=== PATIENT | female | born 1995 | race Caucasian/White ===

== ENCOUNTER → 2018-11-29 | Outpatient (CLI) | payer BC, SELFPAY ==
[2018-11-29 20:24] VITALS: BMI 20.6
[2018-12-03 12:16] LABS: HPV Reflexed? NOT INDICATED
== END | disposition home or self-care (01) ==
PROVIDERS: Visit Provider Nurse Practitioner
DX: Z00.00 Encounter for general adult medical examination without abnormal findings (principal)
CPT/HCPCS: 88175; G0145

== ENCOUNTER → 2025-01-06 | Outpatient (CLI) | payer BC, SELFPAY ==
[2025-01-09 23:07] LABS: Chlamydia By Nucleic Acid AMP Negative (Negative); Gonococcus By Nucleic Acid AMP Negative (Negative)
== END | disposition home or self-care (01) ==
LOC: LABSPEC 14:28
PROVIDERS: Visit Provider Advanced Practice Midwife
DX: Z34.90 Encounter for supervision of normal pregnancy, unspecified, unspecified trimester (principal); Z12.4 Encounter for screening for malignant neoplasm of cervix
CPT/HCPCS: 87086; 87088; 87491; 87591; 87624; 88175; G0145

== ENCOUNTER → 2025-01-16 | Outpatient (CLI) | payer BC, SELFPAY ==
[2025-01-16 16:40] LABS: Hematocrit 37.6 % (37-47); Hemoglobin 12.6 g/dL (12.0-15.0); Immature Granulocytes Count 0.030 X10^3/uL (0.0-0.0); Mean Corp Hgb Conc 33.5 g/dL (32-36); Mean Corpuscular Volume 89.3 fL (81-99); Mean Platelet Vol. 10.1 fl (6.2-12.0); NRBC Flagged by Analyzer 0 % (0-5); Platelet Count 250 K/mm3 (150-450); RBC Distribution Width CV 12.9 % (11.6-14.6); RBC Distribution Width SD 42.3 fl (35.1-43.9); Red Blood Count 4.21 M/mm3 (4.2-5.4); White Blood Count 6.6 K/mm3 (4.4-11.0)
[2025-01-16 17:35] LABS: HIV Nonreactive (Nonreactive); Hepatitis B Surface Antigen Nonreactive (Nonreactive); Hepatitis C Antibody Nonreactive (Nonreactive); Syphilis Antibodies Nonreactive (Nonreactive)
--- OUTSIDE RECORDS SUMMARY | 2025-01-16 21:24 | XMS RPT_ITS | CCD ---
Author Organization [facility] ion Partnership [facility] Care Team Providers Care Alodize Machine Helper Name Role Phone Unavailable Primary Care Provider Patria Kumar Attending Provider [phone] Aileen Jacinto CNM Attending Provider Aileen Jacinto Attending Unavailable Patria Dooley Attending Unavailable Aileen Jacinto Attending Unavailable Allergies Allergy Classification Reported Allergen(s) Allergy Type Date of Onset Reaction(s) Facility (2 sources) shrimp allergenic extract Drug Allergy 01-06-2025 [facility] [place] [facility] (1 source) Shrimp product Drug allergy (disorder) 01-06-2025 [facility] Repository Medications Current Medications Medication Drug Class(es) Dates Sig (Normalized) Sig (Original) acetaminophen 325 mg oral tablet (2 sources) Start: 10-02-2020 acetaminophen (TYLENOL) tablet 650 mg benzocaine 200 mg/ml / menthol 5 mg/ml topical spray (1 source) Standardized Chemical Allergen Start: 10-03-2020 benzocaine-menthol (DERMOPLAST) 20-0.5 % spray calcium chloride 0.0014 meq/ml / potassium chloride 0.004 meq/ml / sodium chloride 0.103 meq/ml / sodium lactate 0.028 meq/ml injectable solution (2 sources) Start: 10-02-2020 End: 10-03-2020 lactated ringers infusion doxylamine succinate 25 mg oral tablet (1 source) Start: 03-15-2020 take 1 tablet by mouth once daily doxyLAMINE succinate (UNISOM SLEEPTABS) 25 MG tablet Indications: Nausea and vomiting of , antepartum Take 1 tablet by mouth nightly 30 tablet 1 03/15/2020 Active ferrous sulfate 325 mg oral tablet (3 sources) Start: 10-05-2020 End: 10-05-2020 take 1 tablet by mouth twice daily at mealtime ferrous sulfate (IRON 325) 325 (65 Fe) MG tablet Take 1 tablet by mouth 2 times daily (with meals) 60 tablet 1 10/05/2020 Active Start: 10-05-2020 ferrous sulfat e (IRON 325) tablet 325 mg lansinoh lanolin ointment (1 source) Start: 10-03-2020 lansinoh lanol in ointment 2 ml ondansetron 2 mg/ml injection (2 sources) Serotonin-3 Receptor Antagonist Start: 10-02-2020 End: 10-03-2020 ondansetron (ZOFRAN) injection 4 mg Fclbrj40-Vpqk Fum-Folic Ac-Om3 (One A Day Women's Dha) 28 mg iron- 800 mcg combo pack (3 sources) Start: 12-13-2024 Nmwbbu94-Sloh Fum-Folic Ac-Om3 (One A Day Women's Dha) 28 mg iron- 800 mcg combo pack Active NMA PO December 13, 2024 12:00am Vit-Fe Fumarate-FA ( VITAMIN) 27-0.8 MG TABS (4 sources) Start: 02-03-2020 take 1 tablet by mouth once daily Vit-Fe Fumarate-FA ( VITAMIN) 27-0.8 MG TABS Take 1 tablet by mouth daily 90 tablet 4 02/03/2020 Active pyridoxine hydrochloride 25 mg oral tablet (1 source) Start: 03-15-2020 take 1 tablet by mouth three times daily vitamin B-6 (PYRIDOXINE) 25 MG tablet Indications: Nausea and vomiting of , antepartum Take 1 tablet by mouth 3 times daily 90 tablet 3 03/15/2020 Active ropivacaine 0.2% in sodium chloride 0.9% 200mL (OB) epidural (1 source) Start: 10-03-2020 ropivacaine 0. 2% in sodium chloride 0.9% 200mL (OB) epidural simethicone 80 mg chewable tablet (1 source) Start: 10-03-2020 simethicone (MYLICON) chewable tablet 80 mg witch anthony 500 mg/ml medicated pad (1 source) Start: 10-03-2020 witch anthony-glycerin (TUCKS) pad Completed/Discontinued Medications Medication Drug Class(es) Dates Sig (Normalized) Sig (Original) docusate sodium 100 mg oral capsule (3 sources) Start: 10-03-2020 End: 10-05-2020 take 1 capsule by mouth twice daily as needed for constipation docusate sodium (COLACE, DULCOLAX) 100 MG CAPS Take 100 mg by mouth 2 times daily as needed for Constipation 60 capsule 1 10/05/2020 10/05/2020 Discontinued ibuprofen 600 mg oral tablet (4 sources) Nonsteroidal Anti-inflammatory Drug Start: 10-02-2020 End: 10-05-2020 take 1 tablet by mouth every six hours ibuprofen (ADVIL;MOTRIN) 600 MG tablet Take 1 tablet by mouth every 6 hours 40 tablet 1 10/05/2020 10/05/2020 Discontinued oxyCODONE hydrochloride 5 mg oral tablet (1 source) Opioid Agonist Start: 10-04-2020 End: 10-04-2020 oxyCODONE (ROXICODONE) immediate release tablet 5 mg Oxytocin-Sodium Chloride 30-0.9 UT/500ML-% SOLN (2 sources) Start: 10-03-2020 End: 10-03-2020 Oxytocin-Sodium Chloride 30-0.9 UT/500ML-% SOLN Start: 10-02-2020 End: 10-03-2020 Oxytocin-Sodium Chloride 30- 0.9 UT/500ML-% SOLN Problems Active Problems Problem Classification Problem Date Documented Da te Episodic/Chronic Menstrual disorders (8 sources) Missed period; Translations: [Amenorrhea] Onset: 01-06-2025 12-13-2024 Chronic Comment on above: nurse visit; positiv e test today. RTO as scheduled for New OB Other complications of (1 source) High risk ; Translations: [Supervision of high risk in first trimester] Episodic Other and delivery including normal (11 sources) Term ; Translations: [Normal ] Onset: 03-15-2020 10-03-2020 Episodic Comment on above: , DONALD 08/09/25, Kami Mendez, Andrea declined NIPT & Chacon ier testing Other screening for suspected conditions (not mental disorders or infectious disease) (2 sources) care status; Translations: [Encounter for screening for malignant neoplasm of cervix] Onset: 01-06-2025 Episodic Polyhydramnios and other problems of amniotic cavity (5 sources) Subchorionic hematoma; Translations: [Premature rupture of membranes] Onset: 03-15-2020 03-15-2020 Episodic Residual codes; unclassified (4 sources) Infertile 12-23-2024 Episodic Comment on above: 3yrs to conceive eac h Residual codes; unclassified (1 source) 9 weeks gestation of ; Translations: [9 weeks gestation of ] Onset: 01-06-2025 Episodic Screening and history of mental health and substance abuse codes (5 sources) Ex-smoker; Translations: [Personal history of nicotine dependence] Onset: 01-06-2025 12-23-2024 Episodic Unclassified (2 sources) Patient encounter status; Translations: [ care, antepartum] Onset: 03-15-2020 03-15-2020 Past or Other Problems Problem Classification Problem Date Documented Da te Episodic/Chronic Other diseases of bladder and urethra (2 sources) Urethral caruncle; Translations: [Urethral caruncle] Onset: 04-26-2020 04-26-2020 Episodic Results Test Name Value Interpretation Reference Range Facil ity PAP IG HPV APTIMA 16/18,45on 01-13-2025 ADEQ Comment Normal . [facility] Comment on above: Order Comment: Speci men Comment: [id number] Specimen Comment: No. of containers..01 ThinPrep Vial Result Comment: Sati sfactory for evaluation. Endocervical and/or squamous metaplastic cells (endocervical component) are present. Performed By: #### M 100.2200, L7400.0280, L7000.1800 #### [facility] [address] [place], [place], [id number] COMM . Normal . [facility] Comment on above: Order Comment: Speci men Comment: [id number] Specimen Comment: No. of containers..01 ThinPrep Vial Performed By: #### M 100.2200, L7400.0280, L7000.1800 #### [facility] [address] [place], [place], [id number] COMMENT Comment Normal . [facility] Comment on above: Order Comment: Speci men Comment: [id number] Specimen Comment: No. of containers..01 ThinPrep Vial Result Comment: This liquid based ThinPrep(R) pap test was screened with the use of an image guided system. Performed By: #### M 100.2200, L7400.0280, L7000.1800 #### [facility] [address] [place], [address] DIAG Comment Normal . [facility] Comment on above: Order Comment: Speci men Comment: [id number] Specimen Comment: No. of containers..01 ThinPrep Vial Result Comment: NEGA TIVE FOR INTRAEPITHELIAL LESION OR MALIGNANCY. Performed By: #### M 100.2200, L7400.0280, L7000.1800 #### [facility] [address] [place], [address] HPV APTIMA, HR Negative Normal Negative [facility] Comment on above: Order Comment: Speci men Comment: [id number] Specimen Comment: No. of containers..01 ThinPrep Vial Result Comment: This nucleic acid amplification test detects fourteen high- risk HPV types (16,18,31,33,35,39,45,51,52,56,58,59,66,68) without differentiation. Performed By: #### M 100.2200, L7400.0280, L7000.1800 #### [facility] [address] [place], [address] HPV Rhina Rfx Comment Normal . [facility] Comment on above: Order Comment: Speci men Comment: [id number] Specimen Comment: No. of containers..01 ThinPrep Vial Result Comment: Crit eria not met, HPV Genotype not performed. Performed at: [facility] - [facility] Cyto Hist[facility] [id number] [place] [id number] Insole Lip Turner: Danny Cabrera MD, Phone: [phone] Performed at: - [address] [id number] Insole Lip Turner: Valencia Vásquez MD, Phone: [phone] Performed at: =G Lab[address] [place] [id number] Insole Lip Turner: Valencia Vásquez MD, Phone: [phone] Performed By: #### M 100.2200, L7400.0280, L7000.1800 #### [facility] [address] [place], [place], [address] PAPSMR Comment Normal . [facility] Comment on above: Order Comment: Speci men Comment: [id number] Specimen Comment: No. of containers..01 ThinPrep Vial Result Comment: The Pap smear is a screening test designed to aid in the detection of premalignant and malignant conditions of the uterine cervix. It is not a diagnostic procedure and should not be used as the sole means of detecting cervical cancer. Both false-positive and false-negative reports do occur. Performed By: #### M 100.2200, L7400.0280, L7000.1800 #### [facility] [address] [place], [place], [address] PERFORM Comment Normal . [facility] Comment on above: Order Comment: Speci men Comment: [id number] Specimen Comment: No. of containers..01 ThinPrep Vial Result Comment: Melany Mendoza, Lathe Set Up Operator (ASCP) Performed By: #### M 100.2200, L7400.0280, L7000.1800 #### [facility] [address] [place], [address] Urine Cultureon 01-10-2025 [facility] Urine Culture Urine Culture Mixed Gram Positive Organisms [place] Count 25,000-50,000 MIXC Mixed contaminants. Submit a new specimen if indicated. Normal [facility] Comment on above: Performed By: #### M 100.2200, L7400.0280, L7000.1800 #### [facility] [address] [place], [address] Chlamydia/GC MACK aptimaon CHLAMY,NUC ACID Negative Normal Negative [facility] Comment on above: Performed By: #### M 100.2200, L7400.0280, L7000.1800 #### [facility] [address] [place], [place], [address] GC BY NUC ACID Negative Normal Negative [facility] Comment on above: Result Comment: Perf ormed at: =G - [facility] [address] [place], [place] [id number] Insole Lip Turner: Valencia Vásquez MD, Phone: [phone] Performed By: #### M 100.2200, L7400.0280, L7000.1800 #### [facility] [address] [place], [place], [address] Chlamydia trachomatis rRNA d etection by probe and target amplification methodOrdered By: Aileen Jacinto on 01-06-2025 C. trachomatis rRNA MACK+probe Ql (Unsp spec) Negative Negative [facility] Neisseria gonorrhoeae nuclei c acid detection by amplified probe techniqueOrdered By: Aileen Jacinto on 01-06-2025 N. gonorrhoeae DNA MACK+probe Ql (Unsp spec) Negative Negative [facility] Comment on above: Performed at: =G - [address] [id number] Director: Valencia Vásquez MD, Phone: [phone] Tipple Tender Office Visit Reporton 01-06-2025 Tipple Tender Office Visit Report [facility] [address], [address] [place] [address] OFFICE VISIT Date of Service: 01/06/25 MR#: [id number] Acct: [id number] Name: NAPOLEON PEREZ CRISTINE Rep #: [id number] : 1995 Provider: PAULINO Kaplan ams Age/Sex: 29/F [place] [facility] [place]: Signed Intake Vital Signs 12/13/24 14:03 01/06/25 12:59 Height 5 ft 2 in 5 ft 2 in Weight: 121 lb 2 oz BMI 22.1 BP 106/69 Intake Visit Reasons: *NEW* NOB LMP 11/02, DONALD 08/09 Chief Complaint: New 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 Required: No Is patient in pain?: No Allergies shrimp Allergy (Mild, Verified 01/06/25 13:04) Rash Medications ???Medication ???Instructions ???Recorded ???Confirmed ???Type vits 75-iron 28 mg-folic pkg PO 12/13/24 01/06/25 History acid 800 mcg-omega-3 oral combo pack (One A Day Women's DHA) Last Menstrual Period: 11/02/24 : Yes PFSH PFSH Medical History Gynecologic exam normal Family History Grandfather Heart disease Diabetes Father Hypertension Brain aneurysm in 40s Social History adopted: No household members: spouse, family and children housing: house number of children: 1 current occupational status: employed current occupation: [employer] 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) pets and animals: Yes (Avoid litterbox ) pets and animals: cat(s) history of recent travel: No sexually active: Yes Smoking Status: Former smoker quit date: 11/28/19 second hand exposure: No alcohol intake: current alcohol intake frequency: holidays/special occasions only details: Not while substance use type: does not use well-balanced diet: daily or most days caffeine: No eating out: 1-3 times/week during the past year weight has: remained stable what type of physical activity do you participate in: none chung/protestant: None seatbelt use: always do you feel safe at home: Yes 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 Date Name GA/Weeks Outcome Route Bth Weight Infant Gen Labor Lgth Anesthesia Del Locatn Provider FOB 10/03/20 Andrea Suarez 40 live - full term 7lbs 5oz Male epidur al Abigail Mendez HPI *NEW* NOB LMP 11/02, DONALD 2/11 Details: NAPOLEON PEREZ is a 29 year old who presents for New OB visit. OB Visit DONALD Calculator Estimated Delivery Date Method Current WG Current Estimate 08/09/25 LMP (Certain) 9w 2d Other Estimates 08/05/25 Ultrasound #1 9w 6d Comments: HIV: Urine Culture: Sequential Screen: NIPT Screen: Estimated Due Date: 08/09/25 Expected Delivery Route/Plan Labor Preferences- CB/BF classes: [] labor support person: [] labor intervention preferences: [] pain management options preferred: [] cut cord/dad catch: [] : [] PP control planned: [] discussed possible routes of delivery and associated risks: [] special requests: [] Specific Issue/Plans Covid status: [] Flu vaccine: [] Tdap vaccine: [] Rhogam: [] LARC form signed: [] Problem list reviewed and updated with the most current plan of care details and appropriate orders placed. Relevant counseling for the gestational age provided. Continue routine care and follow up unless otherwise noted in visit notes/problem list details Initial Weight: 121 lb Date -???-???-???-???-???- ???-???-???-???-???-? ??-???- EGA Weight BP Urine Prot -???-???-???-???-???- ???-???-???-???-???-? ??-???- Glucose FHR FuHt Pres Dilation -???-???-???-???-???- ???-???-???-???-???-? ??-???- Effaced St Visit Note 01/06/25 -???-???-???-???-???- ???-???-???-???-???-? ??-???- 9w 2d 121 lb 2 oz (+2 oz) 106/69 -???-???-???-???-???- ???-???-???-???-???-? ??-???- 158 -???-???-???-???-???- ???-???-???-???-???-? ??-???- KW- CRL 2.96 cm cons with date. Accepts NIPT Menstrual History Last Menstrual Period: 11/02/24 Reported LMP: definite Normal amount/duration: No (a little early) Frequency in days: 28 On hormonal BC at conception: No hCG+: 12/09/24 Antepartum Record Genetic Screening: Congenital Heart Defect: Other, Neural Tube Defect: Other, Hemoglobinopathy Or Carrier: Other, Cystic Fibrosis: Other, Chromosome Abnormality: Other, Papi-Sachs: Other, Hemophilia: Other, Intellectual Disability/Autism: Other, Recurrent Loss/Stillbirth: Other, Othe (more content not included)... Normal [facility] Urine cultureOrdered By: Jae Jacinto on 01-06-2025 Bacteria identified Cx Nom (U) Positive Abnormal [facility] - Chemistry and C hemistry - challengeOrdered By: Patria Dooley on 12-13-2024 HCG ( test) Ql (U) Positive [facility] Tipple Tender Office Visit Reporton 12-13-2024 Tipple Tender Office Visit Report [facility] [address], [address] [place] [address] OFFICE VISIT Date of Service: 12/13/24 MR#: [id number] Acct: [id number] Name: NAPOLEON PEREZ Rep #: [id number] : 1995 Provider: VINEET Jarquin Age/Sex: 29/F [place] [facility] [place]: Signed Intake Vital Signs 12/13/24 14:03 Height 5 ft 2 in Weight: 121 lb 2 oz BMI 22.1 BP 92/59 L Intake Visit Reasons: Confirm , est care Chief Complaint: Urine preg.- confirm preg. Pricer Bagger Required: No Is patient in pain?: No Allergies No Known Allergies Allergy (Verified 12/13/24 14:04) Medications ???Medication ???Instructions ???Recorded ???Confirmed ???Type vits 75-iron 28 mg-folic pkg PO 12/13/24 12/13/24 History acid 800 mcg-omega-3 oral combo pack (One A Day Women's DHA) Is last menstrual period known: Yes Last Menstrual Period: 11/04/24 Post menopausal: No Patient : No : No Nurse's Note: Patient presents for confirmation of . + UPT in office. Patient denies any bleeding or spotting and voices no concerns at this time. She has a Pre-NOB phone call scheduled with triage and her NOB in office is schedule 01/06. Patient instructed to call with and questions or concerns before NOB visit. Patient voices understanding. 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 RTO as scheduled for New OB Orders: Orders POC Urine Today N91.2 - Amenorrhea, unspecified 12/13/24 1430 Date Patria Dooley RAILROAD PASSENGER AGENT-C Cosigner Signature: Date (if applicable) CC: Normal [facility] Basic Metabolic Panelon 04-0 Calcium [Mass/Vol] 8.4 mg/dL Normal 8.4-10.[address] [facility] Comment on above: Performed By: #### Misa GRUBBS #### [facility] [address] [place] [address] [facility] #### ABSGL #### [facility] [address] [place] [address] Glucose [Mass/Vol] 104 mg/dL High 70-[address] [facility] Comment on above: Performed By: #### Misa GRUBBS #### [facility] [address] [place] [address] [facility] #### ABSGL #### [facility] [address] [place] [address] Anion gap [Moles/Vol] 3 mmol/L Normal 3-13 [facility] Comment on above: Performed By: ###Zofia GRUBBS #### [facility] [address] [place] [address] [facility] #### ABSGL #### [facility] [address] [place] [address] CO2 [Moles/Vol] 21 mmol/L Low 22-30 [facility] Comment on above: Performed By: #### Misa GRUBBS #### [facility] [address] [place] [address] [facility] #### ABSGL #### [facility] [address] [place] [address] Creatinine [Mass/Vol] 0.60 mg/dL Normal 0.52-1.25 [facility] Comment on above: Performed By: #### Misa GRUBBS #### [facility] [address] [place] [address] [facility] #### ABSGL #### [facility] [address] [place] [address] GFR/1.73 sq M predicted among blacks MDRD (S/P/Bld) [Vol rate/Area] mL/min/{1.73_m2} Normal >[address] [facility] Comment on above: Performed By: #### A HUMERA #### [facility] [address] [place] [address] [facility] #### ABSGL #### [facility] [address] [place] [address] GFR/1.73 sq M predicted among non-blacks MDRD (S/P/Bld) [Vol rate/Area] mL/min/{1.73_m2} Normal >[address] [facility] Comment on above: Result Comment: KDIG O guidelines provide the following GFR categories: Stage GFR(ml/min/1.73 m2) Terms G1 >=90 Normal or high G2 60-89 Mildly decreased* G3a 45-59 Mildly to moderately decreased G3b 30-44 Moderately to severely decreased G4 15-29 Severely decreased G5 <15 Kidney failure *Relative to young adult level. In the absence of evidence of kidney damage, neither GFR category G1 nor G2 fulfill the criteria for CKD. The CKD-EPI equation is validated in individuals 18 years of age and older. Currently the best equation for estimating glomerular filtration rate (GFR) from serum creatinine in children is the Bedside Wray equation. It is less accurate in patients with extremes of muscle mass, restriction of dietary protein, ingestion of creatine, extra-renal metabolism of creatinine, or treatment with medications that affect renal tubular creatinine secretion. Performed By: #### A HUMERA #### [facility] [address] [place] [address] [facility] #### ABSGL #### [facility] [address] [place] [address] Urea nitrogen [Mass/Vol] 9 mg/dL Normal 7-[address] [facility] Comment on above: Performed By: #### A HUMERA #### [facility] [address] [place] [address] [facility] #### ABSGL #### [facility] [address] [place] [address] Chloride [Moles/Vol] 109 mmol/L High 98-107 [facility] Comment on above: Performed By: #### A BORAngelina #### [facility] [address] [place] [address] [facility] #### ABSGL #### [facility] [address] [place] [address] Potassium [Moles/Vol] 3.6 mmol/L Normal 3.5-5.1 [facility] Comment on above: Performed By: #### A HUMERA #### [facility] [address] [place], [place] [address] [place] [address] #### ABSGL #### [facility] [address] [place] [address] Sodium [Moles/Vol] 133 mmol/L Low 135-[address] [facility] Comment on above: Performed By: #### A HUMERA #### [facility] [address] [place] [address] [facility] #### ABSGL #### [facility] [address] [place] [address] [facility]Con 10-05-2020 Hematocrit (Bld) [Volume fraction] 25.3 % Low 35.0 - 47.0 % [facility] [place] [facility] Work Phone: Hemoglobin.gastrointe stinal spec 1 Ql (Stl) 8.5 g/dL Low 11.7 - 16.0 g/dL [facility] [place] [facility] Work Phone: Interpretation and review of laboratory results Abnormal [facility] [place] [facility] Work Phone: MCH (RBC) [Entitic mass] 31.7 pg 26.0 - 34.0 pg [facility] Work Phone: MCHC (RBC) [Mass/Vol] 33.6 % 32.0 - 36.0 % [facility] [place] [facility] Work Phone: MCV (RBC) [Entitic vol] 94.4 fL 79.0 - 98.0 fL [facility] Work Phone: Platelet distribution width (Bld) [Ratio] 14.0 % 11.5 - 14.5 % [facility] Work Phone: Platelet mean volume (Bld) [Entitic vol] 7.8 fL 7.4 - 10.4 fL [facility] Work Phone: Platelets (Bld) [#/Vol] 140 10*3/uL 140 - 440 10*3/uL [facility] Work Phone: RBC (Bld) [#/Vol] 2.68 10*6/uL Low 3.80 - 5.2 0 10*6/uL [facility] Work Phone: WBC (Bld) [#/Vol] 20.3 10*3/uL High 3.6 - 10.7 10*3/uL [facility] [employer] Work Phone: Test Performed by [facility], [address] [place] [address] [facility] Work Phone: Hemogramon 10-05-2020 Erythrocyte distribution width (RBC) [Ratio] 14.0 % Normal 11.5-14.5 [facility] Comment on above: Performed By: #### A HUMERA #### [facility] [address] [facility] [place], [place] [id number] [place] [address] [facility] #### ABSGL #### [facility] [address] [place] [address] Hematocrit (Bld) [Volume fraction] 25.3 % Low 35.0-47.0 [facility] Comment on above: Performed By: #### A HUMERA #### [facility] [address] [facility] [place] [address] [facility] #### ABSGL #### [facility] [address] [facility] [place] [address] Hemoglobin (Bld) [Mass/Vol] 8.5 g/dL Low 11.7-16.0 [facility] Comment on above: Performed By: #### A HUMERA #### [facility] [address] [place] [address] [facility] #### ABSGL #### [facility] [address] [place] [address] MCH (RBC) [Entitic mass] 31.7 pg Normal 26.0-34.[address] [facility] Comment on above: Performed By: #### A HUMERA #### [facility] [address] [place] [address] [facility] #### ABSGL #### [facility] [address] [place] [address] MCHC (RBC) [Mass/Vol] 33.6 % Normal 32.0-36.0 [facility] Comment on above: Performed By: #### A HUMERA #### [facility] [address] [place], [place] [id number] [place] [address] #### ABSGL #### [facility] [address] [place] [address] MCV (RBC) [Entitic vol] 94.4 fL Normal 79.0-98.[address] [facility] Comment on above: Performed By: #### Misa GRUBBS #### [facility] [address] [place], [place] [address] [place] [address] #### ABSGL #### [facility] [address] [place] [address] Platelet mean volume (Bld) [Entitic vol] 7.8 fL Normal 7.4-10.[address] [facility] Comment on above: Performed By: #### A HUMERA #### [facility] [address] [place] [address] [facility] #### ABSGL #### [facility] [address] [place] [address] Platelets (Bld) [#/Vol] 140 10*3/uL Normal 140-[address] [facility] Comment on above: Performed By: #### A HUMERA #### [facility] [address] [place] [address] [facility] #### ABSGL #### [facility] [address] [place] [address] RBC (Bld) [#/Vol] 2.68 10*6/uL Low 3.80-5.[address] [facility] Comment on above: Performed By: #### A HUMERA #### [facility] [address] [place], [place] [address] [place] [address] #### ABSGL #### [facility] [address] [place] [address] WBC (Bld) [#/Vol] 20.3 10*3/uL High 3.6-10.[address] [facility] Comment on above: Performed By: #### Misa GRUBBS #### [facility] [address] [place], [place] [address] [place] [address] #### ABSGL #### [facility] [address] [place] [address] Hemogram w/ Autodiffon 10-05 Abs Baso Cnt 0.0 10*3/uL Normal 0.0-0.2 [facility] Comment on above: Performed By: #### Misa GRUBBS #### [facility] [address] [place], [place] [address] [place] [address] #### ABSGL #### [facility] [address] [place] [address] Abs Neutrophile Cnt 14.7 10*3/uL High 1.8-7.0 [facility] Comment on above: Performed By: #### Misa GRUBBS #### [facility] [address] [place], [place] [address] [place] [address] #### ABSGL #### [facility] [address] [place] [address] Basophils/100 WBC (Bld) 0.2 % Normal 0.0-2.[address] [facility] Comment on above: Performed By: #### A HUMERA #### [facility] [address] [place], [place] [address] [place] [address] #### ABSGL #### [facility] [address] [place] [address] Eosinophils (Bld) [#/Vol] 0.0 10*3/uL Normal 0.0-0.[address] [facility] Comment on above: Performed By: #### A HUMERA #### [facility] [address] [place] [address] [facility] #### ABSGL #### [facility] [address] [place] [address] Eosinophils/100 WBC (Bld) 0.2 % Low 1.0-6.[address] [facility] Comment on above: Performed By: #### A HUMERA #### [facility] [address] [place] [address] [facility] #### ABSGL #### [facility] [address] [place] [address] Erythrocyte distribution width (RBC) [Ratio] 14.0 % Normal 11.5-14.[address] [facility] Comment on above: Performed By: #### A HUMERA #### [facility] [address] [place], [place] [address] [place] [address] #### ABSGL #### [facility] [address] [place] [address] Granulocytes/100 WBC (Bld) 89.5 % High 40.0-80.[address] [facility] Comment on above: Performed By: #### A HUMERA #### [facility] [address] [place] [address] [facility] #### ABSGL #### [facility] [address] [place] [address] Hematocrit (Bld) [Volume fraction] 24.3 % Low 35.0-47.[address] [facility] Comment on above: Performed By: #### A HUMEAR #### [facility] [address] [place] [address] [facility] #### ABSGL #### [facility] [address] [place] [address] Hemoglobin (Bld) [Mass/Vol] 8.4 g/dL Low 11.7-16.[address] [facility] Comment on above: Performed By: #### A HUMERA #### [facility] [address] [place], [place] [address] [place] [address] #### ABSGL #### [facility] [address] [place] [address] Lymphocytes (Bld) [#/Vol] 0.6 10*3/uL Low 1.0-4.[address] [facility] Comment on above: Performed By: #### A HUMERA #### [facility] [address] [place], [place] [address] [place] [address] #### ABSGL #### [facility] [address] [place] [address] Lymphocytes/100 WBC (Bld) 3.9 % Low 20.0-40.[address] [facility] Comment on above: Performed By: #### A HUMERA #### [facility] [address] #### ABSGL #### [facility] [address] [place] [address] MCH (RBC) [Entitic mass] 32.1 pg Normal 26.0-34.[address] [facility] Comment on above: Performed By: #### A HUMERA #### [facility] [address] #### ABSGL #### [facility] [address] [place] [address] MCHC (RBC) [Mass/Vol] 34.5 % Normal 32.0-36.0 [facility] Comment on above: Performed By: #### A HUMERA #### [facility] [address] [place], [place] [address] [place] [address] #### ABSGL #### [facility] [address] [place] [address] MCV (RBC) [Entitic vol] 93.0 fL Normal 79.0-98.[address] [facility] Comment on above: Performed By: #### A HUMERA #### [facility] [address] [place] [address] [facility] #### ABSGL #### [facility] [address] [place] [address] Monocytes (Bld) [#/Vol] 1.0 10*3/uL High 0.0-0.[address] [facility] Comment on above: Performed By: #### Misa GRUBBS #### [facility] [address] [place] [address] [facility] #### ABSGL #### [facility] [address] [place] [address] Monocytes/100 WBC (Bld) 6.2 % Normal 2.0-10.[address] [facility] Comment on above: Performed By: #### Misa GRUBBS #### [facility] [address] [place] [address] [facility] #### ABSGL #### [facility] [address] [place] [address] Platelet mean volume (Bld) [Entitic vol] 8.0 fL Normal 7.4-10.[address] [facility] Comment on above: Performed By: #### Misa GRUBBS #### [facility] [address] [place] [address] [facility] #### ABSGL #### [facility] [address] [place] [address] Platelets (Bld) [#/Vol] 142 10*3/uL Normal 140-[address] [facility] Comment on above: Performed By: #### Misa GRUBBS #### [facility] [address] [place] [address] [facility] #### ABSGL #### [facility] [address] [place] [address] RBC (Bld) [#/Vol] 2.61 10*6/uL Low 3.80-5.[address] [facility] Comment on above: Performed By: #### A HUMERA #### [facility] [address] [place] [address] [facility] #### ABSGL #### [facility] [address] [place] [address] WBC (Bld) [#/Vol] 16.4 10*3/uL High 3.6-10.[address] [facility] Comment on above: Performed By: #### A HUMERA #### [facility] [address] [place], [place] [address] [place] [address] #### ABSGL #### [facility] [address] [place] [address] Lactic Acidon 10-05-2020 Lactate [Moles/Vol] 1.6 mmol/L Normal 0.7-2.[address] [facility] Comment on above: Performed By: #### A HUMERA #### [facility] [address] [place], [place] [address] [place] [address] #### ABSGL #### [facility] [address] [place] [address] BASIC METABOLIC PANELon Anion gap [Moles/Vol] 3 mmol/L 3 - 13 mmol/L [facility] Work Phone: Calcium [Mass/Vol] 8.4 mg/dL 8.4 - 10. 4 mg/dL [facility] Work Phone: Chloride [Moles/Vol] 109 mmol/L High 98 - 107 mmol/L [facility] Work Phone: CO2 [Moles/Vol] 21 mmol/L Low 22 - 30 mmol/L [facility] Work Phone: Creatinine [Mass/Vol] 0.6 mg/dL 0.52 - 1.25 mg/dL [facility] Work Phone: EGFR IF NonAfrican [place] Citizen >90.0 >60 mL/min [facility] Work Phone: Comment on above: KDIGO guidelines pro vide the following GFR categories: Stage GFR(ml/min/1.73 m2) Terms G1 >=90 Normal or high G2 60-89 Mildly decreased* G3a 45-59 Mildly to moderately decreased G3b 30-44 Moderately to severely decreased G4 15-29 Severely decreased G5 <15 Kidney failure *Relative to young adult level. In the absence of evidence of kidney damage, neither GFR category G1 nor G2 fulfill the criteria for CKD. The CKD-EPI equation is validated in individuals 18 years of age and older. Currently the best equation for estimating glomerular filtration rate (GFR) from serum creatinine in children is the Bedside Wray equation. It is less accurate in patients with extremes of muscle mass, restriction of dietary protein, ingestion of creatine, extra-renal metabolism of creatinine, or treatment with medications that affect renal tubular creatinine secretion. GFR/1.73 sq M predicted among blacks MDRD (S/P/Bld) [Vol rate/Area] mL/min/{1.73_m2} >60 mL/min [facility] Work Phone: Glucose [Mass/Vol] 104 mg/dL High 70 - 100 mg/dL [facility] Work Phone: Potassium [Moles/Vol] 3.6 mmol/L 3.5 - 5.1 mmol/L [facility] Work Phone: Sodium [Moles/Vol] 133 mmol/L Low 135 - 145 mmol/L [facility] Work Phone: Urea nitrogen (BldV) [Mass/Vol] 9 mg/dL 7 - 20 mg/dL [facility] Work Phone: CBC WITH AUTO DIFFERENTIALon 10-04-2020 Absolute Baso # 0.0 10*3/uL 0.0 - 0.2 10*3/uL [facility] Work Phone: Absolute Neut # 14.7 10*3/uL High 1.8 - 7.0 10*3/uL [facility] Work Phone: Basophils/100 WBC (Bld) 0.2 % 0.0 - 2.0 % [facility] Work Phone: Eosinophils (Bld) [#/Vol] 0.0 10*3/uL 0.0 - 0.5 10*3/uL [facility] Work Phone: Eosinophils/100 WBC (Bld) 0.2 % Low 1.0 - 6.0 % [facility] Work Phone: Granulocytes/100 WBC (Bld) 89.5 % High 40.0 - 80.0 % [facility] Work Phone: Hematocrit (Bld) [Volume fraction] 24.3 % Low 35.0 - 47.0 % [facility] Work Phone: Hemoglobin.gastrointe stinal spec 1 Ql (Stl) 8.4 g/dL Low 11.7 - 16.0 g/dL [facility] Work Phone: Lymphocytes (Bld) [#/Vol] 0.6 10*3/uL Low 1.0 - 4.3 10*3/uL [facility] Work Phone: Lymphocytes/100 WBC (Bld) 3.9 % Low 20.0 - 40.0 % [facility] Work Phone: MCH (RBC) [Entitic mass] 32.1 pg 26.0 - 34.0 pg [employer] Work Phone: [phone] MCHC (RBC) [Mass/Vol] 34.5 % 32.0 - 36.0 % [employer] Work Phone: MCV (RBC) [Entitic vol] 93.0 fL 79.0 - 98.0 fL [employer] Work Phone: Monocytes (Bld) [#/Vol] 1.0 10*3/uL High 0.0 - 0.8 10*3/uL [employer] Work Phone: [phone] Monocytes/100 WBC (Bld) 6.2 % 2.0 - 10.0 % [facility] Work Phone: Platelet distribution width (Bld) [Ratio] 14.0 % 11.5 - 14.5 % [employer] Work Phone: Platelet mean volume (Bld) [Entitic vol] 8.0 fL 7.4 - 10.4 fL [employer] Work Phone: Platelets (Bld) [#/Vol] 142 10*3/uL 140 - 440 10*3/uL [employer] Work Phone: RBC (Bld) [#/Vol] 2.61 10*6/uL Low 3.80 - 5.2 0 10*6/uL [facility] Work Phone: WBC (Bld) [#/Vol] 16.4 10*3/uL High 3.6 - 10.7 10*3/uL [facility] Work Phone: Lactic Acid, Plasmaon 2020 Lactate [Moles/Vol] 1.6 mmol/L 0.7 - 2. 0 mmol/L [facility] Work Phone: Test Performed by [facility] [address] [place], [place] [address] [place], [place] [address] Work Phone: Otheron 10-04-2020 Interpretation and review of laboratory results Abnormal [facility] Work Phone: Test Performed by [facility] [address] Work Phone: Hemogramon 10-03-2020 Erythrocyte distribution width (RBC) [Ratio] 14.0 % Normal 11.5-14.[address] [facility] Comment on above: Performed By: #### A HUMERA #### [facility] [address] #### ABSGL #### [facility] [address] [place] [address] Hematocrit (Bld) [Volume fraction] 36.9 % Normal 35.0-47.[address] [facility] Comment on above: Performed By: #### A HUMERA #### [facility] [address] #### ABSGL #### [facility] [address] [place] [address] Hemoglobin (Bld) [Mass/Vol] 12.8 g/dL Normal 11.7-16.[address] [facility] Comment on above: Performed By: #### A HUMERA #### [facility] [address] #### ABSGL #### [facility] [address] [place] [address] MCH (RBC) [Entitic mass] 31.8 pg Normal 26.0-34.[address] [facility] Comment on above: Performed By: #### A HUMERA #### [facility] [address] [place] [address] [facility] #### ABSGL #### [facility] [address] [place] [address] MCHC (RBC) [Mass/Vol] 34.6 % Normal 32.0-36.0 [facility] Comment on above: Performed By: #### A HUMERA #### [facility] [address] [place] [address] [facility] #### ABSGL #### [facility] [address] [place] [address] MCV (RBC) [Entitic vol] 91.8 fL Normal 79.0-98.[address] [facility] Comment on above: Performed By: #### A HUMERA #### [facility] [address] [place] [address] [facility] #### ABSGL #### [facility] [address] [place] [address] Platelet mean volume (Bld) [Entitic vol] 8.3 fL Normal 7.4-10.[address] [facility] Comment on above: Performed By: #### A HUMERA #### [facility] [address] [place] [address] [facility] #### ABSGL #### [facility] [address] [place] [address] Platelets (Bld) [#/Vol] 219 10*3/uL Normal 140-[address] [facility] Comment on above: Performed By: #### A HUMERA #### [facility] [address] [place] [address] [facility] #### ABSGL #### [facility] [address] [place] [address] RBC (Bld) [#/Vol] 4.02 10*6/uL Normal 3.80-5.[address] [facility] Comment on above: Performed By: #### A HUMERA #### [facility] [address] [place] [address] [facility] #### ABSGL #### [facility] [address] [place] [address] WBC (Bld) [#/Vol] 10.6 10*3/uL Normal 3.6-10.[address] [facility] Comment on above: Performed By: #### A HUMERA #### [facility] [address] [place], [place] [address] [place] [address] #### ABSGL #### [facility] [address] [place] [address] TS GELon 10-03-2020 TS GEL ABO Group: O Rh, Gel: POS Antibody Screen Gel: NEG Normal [facility] Comment on above: Performed By: #### T SGL ####[facility] CBCon 10-02-2020 Hematocrit (Bld) [Volume fraction] 36.9 % 35.0 - 47.0 % [facility] Work Phone: Hemoglobin.gastrointe stinal spec 1 Ql (Stl) 12.8 g/dL 11.7 - 16.0 g/dL [facility] Work Phone: MCH (RBC) [Entitic mass] 31.8 pg 26.0 - 34.0 pg [facility] Work Phone: MCHC (RBC) [Mass/Vol] 34.6 % 32.0 - 36.0 % [facility] Work Phone: MCV (RBC) [Entitic vol] 91.8 fL 79.0 - 98.0 fL [facility] Work Phone: Platelet distribution width (Bld) [Ratio] 14.0 % 11.5 - 14.5 % [facility]event Phone: Platelet mean volume (Bld) [Entitic vol] 8.3 fL 7.4 - 10.4 fL [facility] Work Phone: Platelets (Bld) [#/Vol] 219 10*3/uL 140 - 440 10*3/uL [facility] Work Phone: RBC (Bld) [#/Vol] 4.02 10*6/uL 3.80 - 5.2 0 10*6/uL [facility] Work Phone: WBC (Bld) [#/Vol] 10.6 10*3/uL 3.6 - 10.7 10*3/uL [facility] Work Phone: Test Performed by [facility], [address] [place], [place] [address] [facility] Work Phone: TYPE AND SCREENon 10-02-2020 Sodium [Moles/Vol] O [employer] Work Phone: Sodium [Moles/Vol] Positive [employer] Work Phone: Sodium [Moles/Vol] Negative [employer] Work Phone: Test Performed by [facility], [address] [place], [place] [address] [employer] Work Phone: CBC Auto Differentialon 06-30 Absolute Baso # 0.2 10*3/uL 0 - 0.2 10*3/uL [place], [place] Absolute Neut # 6.2 10*3/uL 1.8 - 7 10*3/uL [place] Basophils/100 WBC (Bld) 1.9 % 0 - 2 % [place] Eosinophils (Bld) [#/Vol] 0.1 10*3/uL 0 - 0.5 10*3/uL [place] Eosinophils/100 WBC (Bld) 1.5 % 1 - 6 % [place] Erythrocyte distribution width (RBC) [Ratio] 13.7 % 11.5 - 14.5 % [place] Granulocytes/100 WBC (Bld) 73.0 % 40 - 80 % [place] Hematocrit (Bld) [Volume fraction] 35.0 % 35 - 47 % [place] Hemoglobin (Bld) [Mass/Vol] 11.7 g/dL 11.7 - 16 g/dL [place] Interpretation and review of laboratory results Abnormal [place] Lymphocytes (Bld) [#/Vol] 1.3 10*3/uL 1 - 4.3 10*3/uL [place] Lymphocytes/100 WBC (Bld) 15.7 % Low 20 - 40 % [place] MCH (RBC) [Entitic mass] 31.1 pg 26 - 34 pg [place] MCHC (RBC) [Mass/Vol] 33.6 % 32 - 36 % [place] MCV (RBC) [Entitic vol] 92.6 fL 79 - 98 fL [place] Monocytes (Bld) [#/Vol] 0.7 10*3/uL 0 - 0.8 10*3/uL [place] Monocytes/100 WBC (Bld) 7.9 % 2 - 10 % [place] Platelet mean volume (Bld) [Entitic vol] 7.8 fL 7.4 - 10.4 fL [place] Platelets (Bld) [#/Vol] 191 10*3/uL 140 - 440 10*3/uL [place] RBC (Bld) [#/Vol] 3.78 10*6/uL Low 3.8 - 5.2 10*6/uL [place] WBC (Bld) [#/Vol] 8.5 10*3/uL 3.6 - 10.7 10*3/uL [place] Test Performed by [facility], [address] , [place], [place] [address] [place] [address] Glucose Challenge,1Hron 01-2 Glucose [Mass/Vol] 90 mg/dL Normal <[address] [facility] Comment on above: Performed By: #### A HUMERA #### [facility] [address] [place], [place] [address] [place] [address] #### ABSGL #### [facility] [address] [address] Glucose tolerance, 1 houron 07-20-2020 Glucose [Mass/Vol] 90 mg/dL <140 [facility], [place] Test Performed by [facility], [address] , [address], [place] Hemogram w/ Autodiffon 07-20 Abs Baso Cnt 0.2 10*3/uL Normal 0.0-0.2 [facility] Comment on above: Performed By: #### A HUMERA #### [facility] [address] #### ABSGL #### [address] [place] [address] Abs Neutrophile Cnt 6.2 10*3/uL Normal 1.8-7.0 [facility] Comment on above: Performed By: #### A HUMERA #### [address] #### ABSGL #### [facility] [address] [place] [address] Basophils/100 WBC (Bld) 1.9 % Normal 0.0-2.[address] [facility] Comment on above: Performed By: #### A HUMERA #### [facility] [address] #### ABSGL #### [address] [place] [address] Eosinophils (Bld) [#/Vol] 0.1 10*3/uL Normal 0.0-0.[address] [facility] Comment on above: Performed By: #### A HUMERA #### [address] #### ABSGL #### [address] [place] [address] Eosinophils/100 WBC (Bld) 1.5 % Normal 1.0-6.[address] [facility] Comment on above: Performed By: #### A HUMERA #### [facility] [address] [place] [address] [facility] #### ABSGL #### [facility] [address] [place] [address] Erythrocyte distribution width (RBC) [Ratio] 13.7 % Normal 11.5-14.[address] [facility] Comment on above: Performed By: #### A HUMERA #### [facility] [address] [place] [address] [facility] #### ABSGL #### [facility] [address] [place] [address] Granulocytes/100 WBC (Bld) 73.0 % Normal 40.0-80.[address] [facility] Comment on above: Performed By: #### A HUMERA #### [facility] [address] [place] [address] [facility] #### ABSGL #### [facility] [address] [place] [address] Hematocrit (Bld) [Volume fraction] 35.0 % Normal 35.0-47.[address] [facility] Comment on above: Performed By: #### A HUMERA #### [facility] [address] [place] [address] [facility] #### ABSGL #### [facility] [address] [place] [address] Hemoglobin (Bld) [Mass/Vol] 11.7 g/dL Normal 11.7-16.[address] [facility] Comment on above: Performed By: #### A HUMERA #### [facility] [address] [place] [address] [facility] #### ABSGL #### [facility] [address] [place] [address] Lymphocytes (Bld) [#/Vol] 1.3 10*3/uL Normal 1.0-4.[address] [facility] Comment on above: Performed By: #### A HUMERA #### [facility] [address] [place] [address] [facility] #### ABSGL #### [facility] [address] [place] [address] Lymphocytes/100 WBC (Bld) 15.7 % Low 20.0-40.[address] [facility] Comment on above: Performed By: #### A HUMREA #### [facility] [address] [place], [place] [address] [place] [address] #### ABSGL #### [facility] [address] [place] [address] MCH (RBC) [Entitic mass] 31.1 pg Normal 26.0-34.[address] [facility] Comment on above: Performed By: #### A HUMERA #### [facility] [address] [place], [place] [address] [place] [address] #### ABSGL #### [facility] [address] [place] [address] MCHC (RBC) [Mass/Vol] 33.6 % Normal 32.0-36.0 [facility] Comment on above: Performed By: #### A HUMERA #### [facility] [address] [place], [place] [address] [place] [address] #### ABSGL #### [facility] [address] [place] [address] MCV (RBC) [Entitic vol] 92.6 fL Normal 79.0-98.[address] [facility] Comment on above: Performed By: #### A HUMERA #### [facility] [address] [place], [place] [address] [place] [address] #### ABSGL #### [facility] [address] [place] [address] Monocytes (Bld) [#/Vol] 0.7 10*3/uL Normal 0.0-0.[address] [facility] Comment on above: Performed By: #### A HUMERA #### [facility] [address] [place], [place] [address] [place] [address] #### ABSGL #### [facility] [address] [place] [address] Monocytes/100 WBC (Bld) 7.9 % Normal 2.0-10.[address] [facility] Comment on above: Performed By: #### Misa GRUBBS #### [facility] [address] [place] [address] [facility] #### ABSGL #### [facility] [address] [place] [address] Platelet mean volume (Bld) [Entitic vol] 7.8 fL Normal 7.4-10.[address] [facility] Comment on above: Performed By: #### Misa GRUBBS #### [facility] [address] [place] [address] [facility] #### ABSGL #### [facility] [address] [place] [address] Platelets (Bld) [#/Vol] 191 10*3/uL Normal 140-[address] [facility] Comment on above: Performed By: #### Misa GRUBBS #### [facility] [address] [place] [address] [facility] #### ABSGL #### [facility] [address] [place] [address] RBC (Bld) [#/Vol] 3.78 10*6/uL Low 3.80-5.[address] [facility] Comment on above: Performed By: #### Misa GRUBBS #### [facility] [address] [place] [address] [facility] #### ABSGL #### [facility] [address] [place] [address] WBC (Bld) [#/Vol] 8.5 10*3/uL Normal 3.6-10.[address] [facility] Comment on above: Performed By: #### Misa GRUBBS #### [facility] [address] [place] [address] [facility] #### ABSGL #### [facility] [address] [place] [address] Hemoglobin Evaluationon 09-2 4-2020 Erythrocyte Cnt 3.99 Mill/uL Normal 3.80-5.10 [facility] Comment on above: Performed By: #### H EPC, HBSAG, HIV4, RPR #### [address] [address] #### HGBFO #### The performing lab is in the report. #### RUBG #### [facility] [address] [place] [address] #### HEMDF #### [facility] [address] [place] [address] Erythrocyte distribution width (RBC) [Ratio] 14.0 % Normal 11.0-15.[address] [facility] Comment on above: Result Comment: Test Performed by [facility], [facility], [address] [place] [address] Joe Olivia M.D., Ph.D., Director of Laboratories , [place] [id number] Performed By: #### H EPC, HBSAG, HIV4, RPR #### [address] #### HGBFO #### The performing lab is in the report. #### RUBG #### [place] [address] [place] [address] #### HEMDF #### [address] [address] Hemoglobin A 97.0 % Normal >96.[address] [facility] Comment on above: Performed By: #### H EPC, HBSAG, HIV4, RPR #### [address] #### HGBFO #### The performing lab is in the report. #### RUBG #### [facility] [address] [place] [address] #### HEMDF #### [facility] [address] [place] [address] Hemoglobin A2 2.8 % Normal 1.8-3.5 [facility] Comment on above: Performed By: #### H EPC, HBSAG, HIV4, RPR #### [address], [place] #### HGBFO #### The performing lab is in the report. #### RUBG #### [facility] [address] [place] [address] #### HEMDF #### [facility] [address] [place] [address] Hemoglobin F 0.2 % Normal <2.[address] [facility] Comment on above: Performed By: #### H EPC, HBSAG, HIV4, RPR #### [facility] [address] [place] [address] #### HGBFO #### The performing lab is in the report. #### RUBG #### [facility] [address] [place] [address] #### HEMDF #### [facility] [address] [place] [address] Interpretation see below Normal [facility] Comment on above: Result Comment: NORM AL PATTERN By high-performance liquid chromatography (HPLC), there is a normal pattern of hemoglobins and normal levels of HbA2 and HbF are present. No variant hemoglobins are observed. This is consistent with A/A phenotype. If iron deficiency coexists with beta thalassemia trait HbA2 may be in the normal range. Rare variant hemoglobins have been known to co-elute with hemoglobin A by high-performance liquid chroma- tography. If clinically indicated, Thalassemia and Hemoglobinopathy Comprehensive is available (Test code 88083). Test Performed by [facility], [facility], [address] [place] [address] Joe Olivia M.D., Ph.D., Director of Laboratories , [place] [id number] Performed By: #### H EPC, HBSAG, HIV4, RPR #### [facility] [address] [place], [place] #### HGBFO #### The performing lab is in the report. #### RUBG #### [facility] [address] [place] [address] #### HEMDF #### [facility] [address] [place] [address] MCH (RBC) [Entitic mass] 31.1 pg Normal 27.0-33.[address] [facility] Comment on above: Performed By: #### H EPC, HBSAG, HIV4, RPR #### [facility] [address] [place], [place] #### HGBFO #### The performing lab is in the report. #### RUBG #### [facility] [address] [place] [address] #### HEMDF #### [facility] [address] [place] [address] MCV (RBC) [Entitic vol] 93.0 FL Normal 80.0-100.[address] [facility] Comment on above: Performed By: #### H EPC, HBSAG, HIV4, RPR #### [facility] [address] [place], [place] #### HGBFO #### The performing lab is in the report. #### RUBG #### [facility] [address] [place] [address] #### HEMDF #### [facility] [address] [place] [address] ABO Rh Blood Typeon 03-16-20 20 ABO and Rh group Nom (Bld) ABO Group: O Rh, Gel: POS Normal [facility] Comment on above: Performed By: #### [place] GRUBBS #### [facility] [address] #### ABSGL #### [facility] [address] [place] [address] Antibody Screen Gelon 2019 Antibody Screen Gel Antibody Screen Gel: NEG Normal [facility] Comment on above: Performed By: #### A HUMERA #### [facility] [address] #### ABSGL #### [facility] [address] [place] [address] HIV 1,2 Ab; p24 Agon 020 HIV 1,2 Ab; p24 Ag NONREACTIVE Normal Nonreactive [facility] Comment on above: Result Comment: Resu lts obtained using the FDA cleared 4th generation HIV test. This test detects antibodies to HIV1, HIV2, HIV Group O, and the presence of the HIV-1 p24 antigen. A Non-Reactive re- sult indicates the patient is negative for both HIV antibody and HIV p24 antigen. All reactive results will undergo reflex confirmation testing at an additional charge. Performed By: #### H EPC, HBSAG, HIV4, RPR #### [facility] [address] [place] [address] #### HGBFO #### The performing lab is in the report. #### RUBG #### [facility] [address] [place] [address] #### HEMDF #### [facility] [address] [facility] [address] Hep B Surface Agon 0 Hep B Surface Ag NOT DETECTED Normal Not-Detected [facility] Comment on above: Performed By: #### H EPC, HBSAG, HIV4, RPR #### [facility] [address] [address] #### HGBFO #### The performing lab is in the report. #### RUBG #### [facility] [address] [facility] [place] [address] #### HEMDF #### [facility] [address] [place] [address] Hep C Antibodyon 03-16-2020 Hep C Antibody NOT DETECTED Normal Not-Detected [facility] Comment on above: Result Comment: Jessica ents with DETECTED Hepatitis C Ab results should have a new specimen submitted for supplemental testing with a Hepatitis C Quantitative RNA assay (viral load), if clinically indicated. Performed By: #### H EPC, HBSAG, HIV4, RPR #### [address] [address] #### HGBFO #### The performing lab is in the report. #### RUBG #### [facility] [address] [place] [address] #### HEMDF #### [facility] [address] [place] [address] RPR, Qualon 03-16-2020 RPR, Qual NONREACTIVE Normal Non-Reactive [facility] Comment on above: Performed By: #### H EPC, HBSAG, HIV4, RPR #### [facility] [address] [place] [address] #### HGBFO #### The performing lab is in the report. #### RUBG #### [facility] [address] [place] [address] #### HEMDF #### [facility] [address] [place] [address] ABO/RHon 03-15-2020 Sodium [Moles/Vol] O [place], [place] Sodium [Moles/Vol] Positive [place] ANTIBODY SCREENon 03-15-2020 Sodium [Moles/Vol] Negative [place] CBC Auto Differentialon 02-27 Absolute Baso # 0.0 10*3/uL 0 - 0.2 10*3/uL [place], [place] Absolute Neut # 4.1 10*3/uL 1.8 - 7 10*3/uL [facility], [place] Basophils/100 WBC (Bld) 0.5 % 0 - 2 % [place] Eosinophils (Bld) [#/Vol] 0.1 10*3/uL 0 - 0.5 10*3/uL [place] Eosinophils/100 WBC (Bld) 1.0 % 1 - 6 % [place] Erythrocyte distribution width (RBC) [Ratio] 13.5 % 11.5 - 14.5 % [place] Granulocytes/100 WBC (Bld) 66.5 % 40 - 80 % [place] Hematocrit (Bld) [Volume fraction] 36.1 % 35 - 47 % [place] Hemoglobin (Bld) [Mass/Vol] 12.5 g/dL 11.7 - 16 g/dL [place] Lymphocytes (Bld) [#/Vol] 1.5 10*3/uL 1 - 4.3 10*3/uL [place] Lymphocytes/100 WBC (Bld) 25.1 % 20 - 40 % [place] MCH (RBC) [Entitic mass] 31.1 pg 26 - 34 pg [place] MCHC (RBC) [Mass/Vol] 34.8 % 32 - 36 % [place], [place] MCV (RBC) [Entitic vol] 89.4 fL 79 - 98 fL [place] Monocytes (Bld) [#/Vol] 0.4 10*3/uL 0 - 0.8 10*3/uL [place] Monocytes/100 WBC (Bld) 6.9 % 2 - 10 % [place] Platelet mean volume (Bld) [Entitic vol] 8.2 fL 7.4 - 10.4 fL [place], [place] Platelets (Bld) [#/Vol] 218 10*3/uL 140 - 440 10*3/uL [place] RBC (Bld) [#/Vol] 4.03 10*6/uL 3.8 - 5.2 10*6/uL [place] WBC (Bld) [#/Vol] 6.1 10*3/uL 3.6 - 10.7 10*3/uL [place] Test Performed by [facility], [address] Hemogram w/ Autodiffon 03-15 Abs Baso Cnt 0.0 10*3/uL Normal 0.0-0.2 [facility] Comment on above: Performed By: #### H EPC, HBSAG, HIV4, RPR #### [facility] [address] [place] [address] #### HGBFO #### The performing lab is in the report. #### RUBG #### [facility] [address] [place] [address] #### HEMDF #### [facility] [address] [place] [address] Abs Neutrophile Cnt 4.1 10*3/uL Normal 1.8-7.0 [facility] Comment on above: Performed By: #### H EPC, HBSAG, HIV4, RPR #### [address] #### HGBFO #### The performing lab is in the report. #### RUBG #### [facility] [address] [place] [address] #### HEMDF #### [facility] [address] [place] [address] Basophils/100 WBC (Bld) 0.5 % Normal 0.0-2.[address] [facility] Comment on above: Performed By: #### H EPC, HBSAG, HIV4, RPR #### [address] #### HGBFO #### The performing lab is in the report. #### RUBG #### [place] [address] [place] [address] #### HEMDF #### [facility] [address] [place] [address] Eosinophils (Bld) [#/Vol] 0.1 10*3/uL Normal 0.0-0.[address] [facility] Comment on above: Performed By: #### H EPC, HBSAG, HIV4, RPR #### [address] #### HGBFO #### The performing lab is in the report. #### RUBG #### [address] [place] [address] #### HEMDF #### [address] [address] Eosinophils/100 WBC (Bld) 1.0 % Normal 1.0-6.[address] [facility] Comment on above: Performed By: #### H EPC, HBSAG, HIV4, RPR #### [address] #### HGBFO #### The performing lab is in the report. #### RUBG #### [address] [place] [address] #### HEMDF #### [facility] [address] [place] [address] Erythrocyte distribution width (RBC) [Ratio] 13.5 % Normal 11.5-14.[address] [facility] Comment on above: Performed By: #### H EPC, HBSAG, HIV4, RPR #### [address] #### HGBFO #### The performing lab is in the report. #### RUBG #### [address] [place] [address] #### HEMDF #### [address] [address] Granulocytes/100 WBC (Bld) 66.5 % Normal 40.0-80.[address] [facility] Comment on above: Performed By: #### H EPC, HBSAG, HIV4, RPR #### [address] #### HGBFO #### The performing lab is in the report. #### RUBG #### [address] [place] [address] #### HEMDF #### [address] [address] Hematocrit (Bld) [Volume fraction] 36.1 % Normal 35.0-47.[address] [facility] Comment on above: Performed By: #### H EPC, HBSAG, HIV4, RPR #### [address] [address] #### HGBFO #### The performing lab is in the report. #### RUBG #### [address] [place] [address] #### HEMDF #### [address] [address] Hemoglobin (Bld) [Mass/Vol] 12.5 g/dL Normal 11.7-16.[address] [facility] Comment on above: Performed By: #### H EPC, HBSAG, HIV4, RPR #### [address] #### HGBFO #### The performing lab is in the report. #### RUBG #### [facility] [address] [place] [address] #### HEMDF #### [facility] [address] [place] [address] Lymphocytes (Bld) [#/Vol] 1.5 10*3/uL Normal 1.0-4.[address] [facility] Comment on above: Performed By: #### H EPC, HBSAG, HIV4, RPR #### [address] #### HGBFO #### The performing lab is in the report. #### RUBG #### [address] [place] #### HEMDF #### [facility] [address] [place] [address] Lymphocytes/100 WBC (Bld) 25.1 % Normal 20.0-40.[address] [facility] Comment on above: Performed By: #### H EPC, HBSAG, HIV4, RPR #### [address] #### HGBFO #### The performing lab is in the report. #### RUBG #### [address] [place] [address] #### HEMDF #### [facility] [address] [place] [address] MCH (RBC) [Entitic mass] 31.1 pg Normal 26.0-34.[address] [facility] Comment on above: Performed By: #### H EPC, HBSAG, HIV4, RPR #### [address] #### HGBFO #### The performing lab is in the report. #### RUBG #### [facility] [address] [place] [address] #### HEMDF #### [facility] [address] [place] [address] MCHC (RBC) [Mass/Vol] 34.8 % Normal 32.0-36.0 [facility] Comment on above: Performed By: #### H EPC, HBSAG, HIV4, RPR #### [address] [address] #### HGBFO #### The performing lab is in the report. #### RUBG #### [address] [place] [address] #### HEMDF #### [address] [place] [address] MCV (RBC) [Entitic vol] 89.4 fL Normal 79.0-98.[address] [facility] Comment on above: Performed By: #### H EPC, HBSAG, HIV4, RPR #### [address] [address] #### HGBFO #### The performing lab is in the report. #### RUBG #### [address] [place] [address] #### HEMDF #### [address] [place] [address] Monocytes (Bld) [#/Vol] 0.4 10*3/uL Normal 0.0-0.[address] [facility] Comment on above: Performed By: #### H EPC, HBSAG, HIV4, RPR #### [address] [address] #### HGBFO #### The performing lab is in the report. #### RUBG #### [place] [address] [place] [address] #### HEMDF #### [address] [place] [address] Monocytes/100 WBC (Bld) 6.9 % Normal 2.0-10.[address] [facility] Comment on above: Performed By: #### H EPC, HBSAG, HIV4, RPR #### [address] #### HGBFO #### The performing lab is in the report. #### RUBG #### [facility] [address] [place] [address] #### HEMDF #### [facility] [address] [place] [address] Platelet mean volume (Bld) [Entitic vol] 8.2 fL Normal 7.4-10.[address] [facility] Comment on above: Performed By: #### H EPC, HBSAG, HIV4, RPR #### [address] #### HGBFO #### The performing lab is in the report. #### RUBG #### [place] [address] [place] [address] #### HEMDF #### [address] [address] Platelets (Bld) [#/Vol] 218 10*3/uL Normal 140-[address] [facility] Comment on above: Performed By: #### H EPC, HBSAG, HIV4, RPR #### [address] #### HGBFO #### The performing lab is in the report. #### RUBG #### [address] [place] [address] #### HEMDF #### [address] [address] RBC (Bld) [#/Vol] 4.03 10*6/uL Normal 3.80-5.[address] [facility] Comment on above: Performed By: #### H EPC, HBSAG, HIV4, RPR #### [address] #### HGBFO #### The performing lab is in the report. #### RUBG #### [facility] [address] [place] [address] #### HEMDF #### [facility] [address] [place] [address] WBC (Bld) [#/Vol] 6.1 10*3/uL Normal 3.6-10.[address] [facility] Comment on above: Performed By: #### H EPC, HBSAG, HIV4, RPR #### [address] [address] #### HGBFO #### The performing lab is in the report. #### RUBG #### [address] [place] [address] #### HEMDF #### [facility] [address] [place] [address] Otheron 03-15-2020 Test Performed by [facility], [facility] [address] Rubellaon 03-15-2020 Rubella virus IgG Ql (S) 39.1 [place], [place] Comment on above: Interpretation Table : <10.0 Antibody NOT Detected >=10.0 Antibody Detected Test Performed by [facility], [address] [place] [address] Rubella Immune Statuson 02-27 Rubella Immune Status 39.1 Normal [facility] Comment on above: Result Comment: Inte rpretation Table: <10.0 Antibody NOT Detected >=10.0 Antibody Detected Performed By: #### H EPC, HBSAG, HIV4, RPR #### [address] [address] #### HGBFO #### The performing lab is in the report. #### RUBG #### [place] [address] [place] [address] #### HEMDF #### [facility] [address] [place] [address] ABO Rh Blood Typeon 02-06-20 20 ABO and Rh group Nom (Bld) ABO Group: O Rh, Gel: POS Normal [facility] Comment on above: Performed By: #### A HUMERA #### [facility] [address] #### ABSGL #### [facility] [address] [place] [address] ABO/RHon 02-06-2020 Sodium [Moles/Vol] O [facility] [place], [place] Sodium [Moles/Vol] Positive [facility] [place] ANTIBODY SCREENon 02-06-2020 Sodium [Moles/Vol] Negative [facility] [place], [place] Antibody Screen Gelon 2019 Antibody Screen Gel Antibody Screen Gel: NEG Normal [facility] Comment on above: Performed By: #### A HUMERA #### [facility] [address] #### ABSGL #### [facility] [address] [place] [address] HCG, Quantitative, on 02-06-2020 hCG Quant 8420 m[IU]/mL Abnormal [facility] [place], [place] Comment on above: Females < 5 Values in should double every 2 to 3 days for the first 6 weeks.Elevated concentrations of human chorionic gonadotropin (hCG) measured in the first trimester of are observed in normal , but may serve as an indication of chorionic carcinoma, hydatiform mole, or multiple .Decreasing hCG concentrations indicate threatened or missed , recent termination of , ectopic , gestosis or intrauterine . Evi- and postmenopausal females may have detectable hCG concentrations (< or = to 14 mIU/mL) due to pituitary production of hCG. Serum follicle-stimulating hormone measurement may aid in ruling-out in this population. Cutoffs of greater than 20 to 45 mIU/mL have been suggested and are method dependent. False-elevations (called phantom human chorionic gonadotropin: hCG) may occur with patients who have human antianimal or heterophilic antibodies. Some specimens may not dilute linearly due to abnormal forms of hCG. Elevated hCG concentrations not associated with are found in patients with other diseases such as tumors of the germ cells, ovaries, bladder, pancreas, stomach, lungs, and liver. This test is not intended to detect or monitor tumors or gestational trophoblastic disease. Interpretation and review of laboratory results Abnormal [facility], [place]IEL Test Performed by [facility], [address] , [address] [place] Otheron 02-06-2020 Test Performed by [facility], [address] , [address], [place] hCG Quantitativeon 0 hCG Quantitative 8420 m[IU]/mL Abnormal [facility] Comment on above: Result Comment: Fema les < 5 Values in should double every 2 to 3 days for the first 6 weeks.Elevated concentrations of human chorionic gonadotropin (hCG) measured in the first trimester of are observed in normal , but may serve as an indication of chorionic carcinoma, hydatiform mole, or multiple .Decreasing hCG concentrations indicate threatened or missed , recent termination of , ectopic , gestosis or intrauterine . Evi- and postmenopausal females may have detectable hCG concentrations (< or = to 14 mIU/mL) due to pituitary production of hCG. Serum follicle-stimulating hormone measurement may aid in ruling-out in this population. Cutoffs of greater than 20 to 45 mIU/mL have been suggested and are method dependent. False-elevations (called phantom human chorionic gonadotropin: hCG) may occur with patients who have human antianimal or heterophilic antibodies. Some specimens may not dilute linearly due to abnormal forms of hCG. Elevated hCG concentrations not associated with are found in patients with other diseases such as tumors of the germ cells, ovaries, bladder, pancreas, stomach, lungs, and liver. This test is not intended to detect or monitor tumors or gestational trophoblastic disease. Performed By: #### A HUMERA #### [facility] [address] [place] [address] [facility] #### BARBARA #### [facility] [address] [place] [address] Vital Signs Date Time Vital Sign Value Performing Clinician Facility 01-06-2025 12:59-0400 Body height 157.48 cm Patria MANLEY Work Phone: [facility] 01-06-2025 12:59-0400 Body mass index (BMI) [Ratio] 22.1 kg/m2 Patria Manriquezman [employer] Work Phone: [facility] 01-06-2025 12:59-0400 Body weight 54.94 kg Patria Manriquezman [employer] Work Phone: [facility] 01-06-2025 12:59-0400 Diastolic blood pressure 69 mm[Hg] Patria Manriquezman RAILROAD PASSENGER AGENT-C Work Phone: [facility] 01-06-2025 12:59-0400 Systolic blood pressure 106 mm[Hg] Patria Manriquezman RAILROAD PASSENGER AGENT-C Work Phone: [facility] 12-13-2024 14:03-0400 Body height 157.48 cm Patria Manriquezman RAILROAD PASSENGER AGENT-C Work Phone: [facility] 12-13-2024 14:03-0400 Body mass index (BMI) [Ratio] 22.1 kg/m2 Patria Manriquezman RAILROAD PASSENGER AGENT-C Work Phone: [facility] 12-13-2024 14:03-0400 Body weight 54.94 kg Patria Manriquezman RAILROAD PASSENGER AGENT-C Work Phone: [facility] 12-13-2024 14:03-0400 Diastolic blood pressure 59 mm[Hg] Patria Manriquezman RAILROAD PASSENGER AGENT-C Work Phone: [facility] 12-13-2024 14:03-0400 Systolic blood pressure 92 mm[Hg] Patria Manriquezman RAILROAD PASSENGER AGENT-C Work Phone: [facility] 10-05-2020 08:01-0400 Body Temperature 98.29 [degF] Savanna [employer] Work Phone: 10-05-2020 08:01-0400 Pulse (Heart Rate) 109 /min [employer] Work Phone: 10-05-2020 08:01-0400 Pulse Oximetry 99 % [employer] Work Phone: 10-05-2020 08:01-0400 Respiratory Rate 16 /min Savanna [employer] Work Phone: 10-05-2020 07:56-0400 BP Diastolic 62 mm[Hg] Savanna BENITO Work Phone: 10-05-2020 07:56-0400 BP Systolic 97 mm[Hg] Savanna BENITO Work Phone: 10-02-2020 21:17-0400 BMI (Body Mass Index) 25.06 kg/m2 Savanna BENITO Work Phone: 10-02-2020 21:17-0400 Body weight 62.14 kg Savanna BENITO Work Phone: 10-02-2020 21:17-0400 Height 157.5 cm Savanna BENITO Work Phone: Encounters Encounter Date Encounter Type Care Provider Facility Start: 01-06-2025 End: 01-06-2025 ambulatory Patria MANLEY Work Phone: -Laboratory Specimen Start: 01-06-2025 End: 01-06-2025 Patient encounter procedure Aileen Jacinto CNM -Laboratory Specimen Work Phone: Start: 01-06-2025 End: 01-06-2025 Patient encounter procedure Aileen Jacinto CNM -[facility] Work Phone: Start: 01-06-2025 End: 01-06-2025 ambulatory Aileen Jacinto -[facility] Start: 01-06-2025 End: 01-06-2025 ambulatory Aileen Jacinto Facility:[facility] Start: 12-13-2024 End: 12-13-2024 Patient encounter procedure Patria MANLEY -[facility] Work Phone: Start: 12-13-2024 End: 12-13-2024 ambulatory Patria Dooley [facility] Work Phone: Start: 10-02-2020 End: 10-05-2020 Evaluation and management of inpatient Savanna Ramirez Work Phone: [facility] Maternity Start: 07-20-2020 End: 07-20-2020 Subsequent hospital visit by physician Chelsey Perez Work Phone: [facility] Comment on above: care in sec ond trimester Start: 03-15-2020 End: 03-15-2020 Subsequent hospital visit by physician Chelsey Perez Work Phone: [facility] Comment on above: Supervision of high risk in first trimester Start: 02-06-2020 End: 02-06-2020 Subsequent hospital visit by physician Savanna Ramirez Work Phone: [facility] Comment on above: Missed menses Start: 11-29-2018 Manual pelvic examination Patria Dooley RAILROAD PASSENGER AGENT-C Work Phone: [facility] Procedures Date Procedure Procedure Detail Performing Clinician Start: 01-06-2025 Urine culture Patria meyer RAILROAD PASSENGER AGENT-C Work Phone: Start: 10-05-2020 Blood count complete automated Flavio Byrnes Work Phone: Start: 10-04-2020 Assay of lactate Flavio Byrnes Work Phone: Start: 10-04-2020 Basic metabolic pane l calcium total Flavio Byrnes Work Phone: Start: 10-04-2020 Blood count complete auto&auto difrntl wbc Flavio Byrnes Work Phone: Start: 10-02-2020 Blood count complete automated Keyona Viramontes Work Phone: Start: 10-02-2020 Blood typing serologic abo Keyona Viramontes Work Phone: Start: 07-20-2020 Blood count complete auto&auto difrntl wbc Chelsey [employer] Work Phone: Start: 07-20-[address] gtt 3 specimens [employer] Work Phone: Start: 03-22-2020 Blood count hemoglobin Comment on above: Performed By: #### H EPC, HBSAG, HIV4, RPR #### [facility] [address] [address] #### HGBFO #### The performing lab is in the report. #### RUBG #### [facility] [address] [place] [address] #### HEMDF #### [facility] [address] [place] [address] Start: 03-15-2020 Antibody screen rbc each serum technique Chelsey Perez Work Phone: Start: 03-15-2020 Blood count complete auto&auto difrntl wbc Chelseydiana Perez Work Phone: Start: 03-15-2020 Blood typing serologic abo Chelsey Perez Work Phone: Start: 03-15-2020 RUBELLA IMMUNE Chelsey Sa ffell Work Phone: Start: 02-06-2020 Antibody screen rbc each serum technique Savanna [employer] Work Phone: Start: 02-06-2020 Blood typing serologic abo [employer] Work Phone: Start: 02-06-2020 Gonadotropin chorion ic quantitative [employer] Work Phone: Plan of Treatment Date Care Activity Detail Author Start: 07-27-2030 DTaP/Tdap/Td vaccine (2 - Td) DTaP/Tdap/Td vaccine (2 - Td) [employer] Work Phone: Start: 01-06-2025 Liquid based cervica l cytology screening [facility] Start: 03-15-2023 Screening for malign ant neoplasm of cervix Cervical cancer screen [place], [place] Start: 05-08-2021 End: 05-08-2021 Office Visit 05/08/2021 Office Visit Urology Yannick Shukla MD [address] [place] [address] [phone] [facility] Start: 02-27-2021 Influenza vaccination Flu vacc ine (Season Ended) [employer] Work Phone: Start: 07-26-2020 End: 07-26-2020 Routine 07/26/2020 Routine Obstetrics and Gynecology Joy Wang MD [address] [place] [id number] [facility] Start: 04-13-2020 End: 04-13-2020 Routine 04/13/2020 Routine Obstetrics and Gynecology Christiane Mg MD [address] [place] [address], [address] [place], [place] [id number] [facility] Start: 02-28-2020 Influenza vaccination Flu vaccine (# 1) [place], [place] Start: 02-08-2020 End: 02-08-2020 Procedure visit [facility] Start: 2014 Screening for malign ant neoplasm of cervix Cervical cancer screen [place], [place] Start: 2012 DTaP/Tdap/Td vaccine (1 - Tdap) DTaP/Tdap/Td vaccine (1 - Tdap) [place], [place] Start: 2009 COVID-19 Vaccine (1) COVID-19 Vaccin e (1) [facility] Work Phone: Start: 2008 HIV screening HIV screen [place], [place] Start: 2004 HPV vaccine (1 - 2-d ose series) HPV vaccine (1 - 2-dose series) [place], [place] Start: 1994 Varicella vaccine (1 of 2 - 2-dose childhood series) Varicella vaccine (1 of 2 - 2-dose childhood series) [place], [place] CBC W Auto Different ial panel - Blood [facility] Chlamydia deoxyribon ucleic acid detection [facility] Cytology report of Cervical or vaginal smear or scraping Cyto stain.thin prep [facility] End: 03-15-2020 Hemoglobin Fractionation Profile Hemoglobin Fractionation Profile Lab Routine Supervision of high risk in first trimester 1 Occurrences starting 03/15/2020 until 03/15/2020 [place] Comment on above: 1 Occurrences starti ng 03/15/2020 until 03/15/2020 Hemoglobin Fractiona tion Profile Hemoglobin Fractionation Profile Lab Routine Supervision of high risk in first trimester 03/15/2020 2:56 PM EDT [place] End: 03-15-2020 Hepatitis B Surface Antigen Hepatitis B Surface Antigen Lab Routine Supervision of high risk in first trimester 1 Occurrences starting 03/15/2020 until 03/15/2020 [place] Comment on above: 1 Occurrences starti ng 03/15/2020 until 03/15/2020 Hepatitis B Surface Antigen Hepatitis B Surface Antigen Lab Routine Supervision of high risk in first trimester 03/15/2020 2:56 PM EDT [place] End: 03-15-2020 Hepatitis C Antibody Hepatitis C Antibody Lab Routine Supervision of high risk in first trimester 1 Occurrences starting 03/15/2020 until 03/15/2020 [place] Comment on above: 1 Occurrences starti quynh 03/15/2020 until 03/15/2020 Hepatitis C Antibody Hepatitis C Antibody Lab Routine Supervision of high risk in first trimester 03/15/2020 2:56 PM EDT [place] Hepatitis C antibody measurement [facility] End: 03-15-2020 HIV Screen HIV Screen Lab Routine Supervision of high risk in first trimester 1 Occurrences starting 03/15/2020 until 03/15/2020 [place] Comment on above: 1 Occurrences starti quynh 03/15/2020 until 03/15/2020 HIV Screen HIV Screen Lab R outine Supervision of high risk in first trimester 03/15/2020 2:56 PM EDT [place] Liquid based cervica l cytology screening [facility] Nonrebreather mask oxygen Nonreb reather mask oxygen Respiratory Care Routine As directed - RT (PRN) until discontinued starting 10/02/2020 [facility] Work Phone: Comment on above: As directed - RT (WI N) until discontinued starting 10/02/2020 Oxygen therapy [Mini mum Data Set] Initiate Oxygen Therapy Protocol while on epidural Respiratory Care Routine Daily until discontinued starting 10/03/2020 [facility] Work Phone: Comment on above: Daily until disconti nued starting 10/03/2020 Path report.final Dx Spec [facility] End: 03-15-2020 RPR with FTA Relex RPR with FTA Relex Lab Routine Supervision of high risk in first trimester 1 Occurrences starting 03/15/2020 until 03/15/2020 [facility] Comment on above: 1 Occurrences starti ng 03/15/2020 until 03/15/2020 RPR with FTA Relex RPR with FTA Relex Lab Routine Supervision of high risk in first trimester 03/15/2020 2:56 PM EDT [facility] ID Rubella IgG measurement [facility] Serologic test for syphilis [facility] End: 10-02-2020 Ultrasound OB limited - unit performed Ultrasound OB limited - unit performed OB Routine One Time for 1 Occurrences starting 10/02/2020 until 10/02/2020 [facility] Work Phone: Comment on above: One Time for 1 Occur rences starting 10/02/2020 until 10/02/2020 General acute hospital Immunizations Immunization Date Immunization Notes Care Provider Fa floyd 07-27-2020 tetanus toxoid, redu leana diphtheria toxoid, and acellular pertussis vaccine, adsorbed Savanna Ramirez [facility] Work Phone: Payers Date Payer Category Payer Self-pay 2024 Unknown [id number] 2019 Unknown [employer] [address] [id number] 2019-Present [phone] [address] [place] [address] [id number] Unknown [id number] Unknown [id number] Unknown [id number] Social History Date Type Detail Facility Start: 02-03-2020 End: 12-13-2024 Tobacco smoking status NHIS Never smoker [facility] Start: 02-03-2020 End: 10-03-2020 Tobacco use and exposure Never used [facility] Start: 02-03-2020 End: 10-03-2020 Alcohol intake [facility] (finding) [facility] on file [facility] Start: 01-14-2020 [facility] to SARS-CoV -2 (event) Not sure [facility] Start: 1995 Sex Assigned At Female [facility] Start: 12-23-2024 Tobacco smoking stat [facility] Ex-smoker (finding) [facility] Progress note 01-06-2025 Note Date & Type Note Facility 01-06-2025 Progress note [facility] Evaluation note 12-13-2024 Note Date & Type Note Facility 12-13-2024 Evaluation note Diagnosis Onset Date Resolution Amenorrhea acute December 13 1:58pm Amenorrhea acute January 06 12:35pm Former smoker, stopped smoking in distant past acute December 12:35pm Infertility acute January 06 12:35pm acute January 06 12:35pm Supervision of normal acute January 06, 2025 12:35pm [facility] Work Phone: Evaluation note Note Date & Type Note Facility Evaluation note No assessment information availa ble [facility] Work Phone: Progress note Note Date & Type Note Facility Progress note Note Date/Time January 06, 2025 1:47pm [facility] [address] [place] [address], [address] [place] [address] OFFICE VISIT Date of Service: 01/06/25 MR#: [id number] Acct: [id number] Name: NAPOLEON PEREZ Rep #: [id number] : 1995 Provider: PAULINO Jacinto Age/Sex: 29/F [place] [facility] [place]: [place] Intake Vital Signs 12/13/24 14:03 01/06/25 12:59 Height 5 ft 2 in 5 ft 2 in Weight: 121 lb 2 oz BMI 22.1 BP 106/69 Intake Visit Reasons: *NEW* NOB LMP 11/02, DONALD 08/09 Chief Complaint: New 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 Required: No Is patient in pain?: No Allergies shrimp Allergy (Mild, Verified 01/06/25 13:04) Rash Medications ?Medication ?Instructions ?Recorded ?Confirmed ?Type vits 75-iron 28 mg-folic pkg PO 12/13/2412/27 History acid 800 mcg-omega-3 oral combo pack (One A Day [facility]) Last Menstrual Period: 11/02/24 : Yes PFSH PFSH Medical History Gynecologic exam normal Family History Grandfather Heart disease Diabetes Father Hypertension Brain aneurysm in 40s Social History adopted: No household members: spouse, family and children housing: house number of children: 1 current occupational status: employed current occupation: [employer] 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) pets and animals: Yes (Avoid litterbox ) pets and animals: cat(s) history of recent travel: No sexually active: Yes Smoking Status: Former smoker quit date: 11/28/19 second hand exposure: No alcohol intake: current alcohol intake frequency: holidays/special occasions only details: Not while substance use type: does not use well-balanced diet: daily or most days caffeine: No eating out: 1-3 times/week during the past year weight has: remained stable what type of physical activity do you participate in: none chung/protestant: None seatbelt use: always do you feel safe at home: Yes 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 Date Name GA/Weeks Outcome Route Bth Weight Infant Gen Labor Lgth Anesthesia Del Locatn Provider FOB 10/03/20 Andrea Suarez 40 live - full term 7lbs 5 oz Male epidural Abigail Mendez HPI *NEW* NOB LMP 11/02, DONALD 08/09 Details: NAPOLEON PEREZ is a 29 year old who presents for New OB visit. OB Visit DONALD Calculator Estimated Delivery Date Method Current WG Current Estimate 08/09/25 LMP (Certain) 9w 2d Other Estimates 08/05/25 Ultrasound #1 9w 6d Comments: HIV: Urine Culture: Sequential Screen: NIPT Screen: Estimated Due Date: 08/09/25 Expected Delivery Route/Plan Labor Preferences- CB/BF classes: [] labor support person: [] labor intervention preferences: [] pain management options preferred: [] cut cord/dad catch: [] : [] PP control planned: [] discussed possible routes of delivery and associated risks: [] special requests: [] Specific Issue/Plans Covid status: [] Flu vaccine: [] Tdap vaccine: [] Rhogam: [] LARC form signed: [] Problem list reviewed and updated with the most current plan of care details and appropriate orders placed. Relevant counseling for the gestational age provided. Continue routine care and follow up unless otherwise noted in visit notes/problem list details Initial Weight: 121 lb Date -?-?-?-?-?-?-?-?-?-?-?-?- EGA Weight BP Urine Prot -?-?-?-?-?-?-?-?-?-?-?-?- Glucose FHR FuHt Pres Dilation -?-?-?-?-?-?-?-?-?-?-?-?- Effaced St Visit Note 01/06/25 -?-?-?-?--?-?-?-?-?-?-?-?- 9w 2d 121 lb 2 oz (+2 oz) 106/69 -?-?-?-?-?-?-?-?-?-?-?-?- 158 -?-?-?-?-?-?-?-?-?-?-?-?- KW- CRL 2.96cm c ons with date. Accepts NIPT Menstrual History Last Menstrual Period: 11/02/24 Reported LMP: definite Normal amount/duration: No (a little early) Frequency in days: 28 On hormonal BC at conception: No hCG+: 12/09/24 Antepartum Record Genetic Screening: Congenital Heart Defect: Other, Neural Tube Defect: Other, Hemoglobinopathy Or Carrier: Other, Cystic Fibrosis: Other, Chromosome Abnormality: Other, Papi-Sachs: Other, Hemophilia: Other, Intellectual Disability/Autism: Other, Recurrent Loss/Stillbirth: Other, Other Structural Defect: Other, Other Genetic Disease: Other and Maternal Metabolic Disorder: Other Infection History: Live with someone with TB or Exposed to TB: No, Patient or Partner has history of Genital Herpes: No, Rash or Viral illness since last mentrual period: No, Prior GBS-Infected child: No, History of STD: No, HIV Infection: No, History of Hepatitis: No, Recent travel outside of [place]: No, Concern for hepatitis exposure: No, Varicella immune: Yes (immune) and Covid Vaccinated: No Medical History Medical History: Positive: Relevant family history (Father -HTN, brain anuerysm @ 40yo dec. Grandfather Diabetes, HTN) and Negative: Diabetes, Hypertension, Heart disease, Auto-immune disorder, Kidney disease/UTI, Neurologic/epilepsy, Psychiatric, Depression/ depression, Hepatitis/liver disease, Varicosities/phlebitis, Thyroid dysfunction, Trauma/domestic violence, History of blood transfusions, D (Rh) Sensitized, Pulmonary (e.g.,TB,Asthma), Seasonal allergies, Drug/latex allergies/reactions, Breast, Beauty Culturist surgery, Operations/hospitalizations, Anesthetic complications, History of abnormal pap (DUE for pap), Uterine anomaly/vishal, Infertility, Anti-retroviral treatment and Other ACOG First Trimester First Trimester: Desire for , Alcohol, Tobacco Cessation, Illicit/Recreational Drug/Substance Use, Intimate Partner Violence, Barriers to care, Unstable Housing, Communication Barriers, Environmental/Work Hazards, Anticipated Course of Care, Nurtrition and weight gain, Toxoplasmosis Precations, Use of Any medications, Sexual activity, Exercise, Dental Care, Sauna/Hot tub use, Seat Belt use, Childbirth classes/Hospital facilities, , Travel, Indications for Ultrasound and Screening for Aneuploidy Second Trimester Second Trimester: Signs and Symptoms of Labor, Selecting a care provider, Reproductive Life Planning & Contreception, Care Planning, Depression/Anxiety and Intimate Partner Violence; Discussed Tobacco Cessation Third Trimester Third Trimester: Pain Management Plans, Labor support person(s), Immediate Larc, Signs and Symptoms of Preeclampsia, Infant Feeding Yes , Education and Family Medical Leave or Disability Forms ROS Const Reports system reviewed and no additional complaints, except as documented, Denies fatigue, Denies headache(s) and Denies lethargy ENT Denies headache(s) Card Reports system reviewed and no additional complaints, except as documented Resp Reports system reviewed and no additional complaints, except as documented GI Reports system reviewed and no additional complaints, except as documented, Denies abdominal pain, Denies constipation, Denies cramping, Denies diarrhea and Denies dyspepsia Reports system reviewed and no additional complaints, except as documented, Denies abnormal vaginal bleeding, Denies difficulty voiding, Denies dyspareunia and Denies dysuria Musc Reports system reviewed and no additional complaints, except as documented Skin/Breast Reports system reviewed and no additional complaints, except as documented Neuro Yes system reviewed and no additional complaints, except as documented and No headache(s) Psych Reports system reviewed and no additional complaints, except as documented, Denies anhedonia and Denies anxiety Endo Reports system reviewed and no additional complaints, except as documented and Denies fatigue Exam Const General: cooperative, healthy appearing and comfortable Neck Neck: normal visual inspection and full ROM Chest Chest palpation & inspection: normal inspection of the chest Breast inspection: normal inspection of the breasts and normal inspection of the axillae Breast palpation: normal palpation of the breasts and normal palpation of the axillae Resp Effort & Inspection: normal respiratory effort and able to speak in complete sentences GI Inspection: normal to inspection Palpation: soft External Female Exam: normal external appearance and normal appearance of the urethra Urethra: normal appearance of the urethra Skin General: no rashes or lesions noted Neuro General: patient alert, patient awake and patient oriented x3 Extrem General: normal to inspection and full ROM Psych Appearance: grossly normal and well kempt Mental Status: mental status grossly normal Mood: congruent mood Affect: normal affect Speech and Movement: speech and movement normal Thought Process: normal Thought Content: normal Coding Level of Care Code OB Routine Diagnoses Infertility Former smoker, stopped smoking in distant past Z87.891 Supervision of normal Z34.90 9 weeks gestation of Z3A.09 Weeks of gestation: 9 weeks Amenorrhea N91.2 Assessment and Plan Assessment and Plan (1) Infertility: Status: Acute Comment: 3yrs to conceive each (2) Former smoker, stopped smoking in distant past: Status: Acute (3) Supervision of normal : Status: Acute Comment: , DONALD 08/09/25, PC Andrea, Andrea (4) : Status: Acute Qualifiers: Weeks of gestation: 9 weeks Qualified Code(s): Z3A.09 - 9 weeks gestation of Comment: declined NIPT & Carrier testing (5) Amenorrhea: Status: Acute Comment: nurse visit; positive test today. RTO as scheduled for New OB Orders: Orders CBC W/Diff, Automated 12/23/24 Z34.90 - Encounter for supervision of normal , unspecified, unspecified trimester Type & Screen 12/23/24 Z34.90 - Encounter for supervision of normal , unspecified, unspecified trimester Rubella IgG 12/23/24 Z34.90 - Encounter for supervision of normal , unspecified, unspecified trimester Hepatitis C Antibody 12/23/24 Z34.90 - Encounter for supervision of normal , unspecified, unspecified trimester Hepatitis B Surface Antigen 12/23/24 Z34.90 - Encounter for supervision of normal , unspecified, unspecified trimester Culture, Urine 12/23/24 Z34.90 - Encounter for supervision of normal , unspecified, unspecified trimester Syphilis Antibodies 12/23/24 Z34.90 - Encounter for supervision of normal , unspecified, unspecified trimester Chlamydia/GC MACK aptima 12/23/24 Z34.90 - Encounter for supervision of normal , unspecified, unspecified trimester HIV 12/23/24 Z34.90 - Encounter for supervision of normal , unspecified, unspecified trimester PAP IG HPV APTIMA 16/18,45 12/23/24 Z12.4 - Encounter for screening for malignant neoplasm of cervix, Z34.90 - Encounter for supervision of normal , unspecified, unspecified trimester Comments Comments: Patient oriented to practice and discussed care expectations and screenings. ACOG book offered to patient. Discussed routine and specially indicated labs if needed- patient consents to testing. See problem list details for plan information. Optional screening including maternal carrier screenings, neural tube defect screening, genetic screening options including quad screen, nuchal translucency, sequential screening, and NIPT screening offered to patient and patient chose: [ ] 01/06/25 1870 <Electronically signed by Aileen mata CNM> Date _ Aileen Jacinto CNM Jacobigner Signature: Date (if applicable) CC: ~ [facility] Work Phone: Reason for referral (narrative) Note Date & Type Note Facility Reason for referral (narrative) No reason for referral information available [facility] Work Phone: Assessments Diagnosis Missed menses Absence of menstruation Diagnosis Supervision of high risk in first trimester Unspecified high-risk Diagnosis care in second trimester Diagnosis PROM (premature rupture of membranes) Premature rupture of membranes in , unspecified as to episode of care Term Advance Directives No Advanced Directives Records FoundDocuments on File Type Date Recorded Patient Bulb Sorter Expl anation Advance Directives and Living Will Power of Launch Steward Documents on File Type Date Recorded Patient Bulb Sorter Expl anation ACP-Advance Directive ACP-Power of Launch Steward Latest Code Status on File Code Status Date Activated Date Inactivated Comments Full Code 10/03/2020 7:57 PM Full Code 10/02/2020 9:40 PM 10/03/2020 7:57 PM Hospital Course Note Department of Obstetrics and Gynecology Delivery Discharge Summary Admission on 10/02/2020 8:57 PM Reason for admission: PROM Intrapartum Course: Augmented with pitocin [id number] PC-01 Indications for Delivery: Was patient delivered between 37w0d - [id number]? NO Surgical Operations & Procedures: Date of delivery: 10/03/20 Delivery Type: spontaneous vaginal Anesthesia: Epidural anesthesia Laceration(s): 2nd degree Delivery Complications: none Pertinent Findings & Procedures: Information for the patient's : GiorgioisraelPatel [[id number]] male Weight: 7 lb 5.1 oz (3.32 kg) Apgars: Information for the patient's : SlimePatel [[id number]] One Minute : 8 Five Minute : 9 Course: complicated by difficulty urinating which resolved, tachycardia associated with shaking and crying which also resolved, anemia (pp hgb 8.5), and elevated wbc without fevers/uterine tenderness/purulent discharge. No complaints by the time of discharge. Infant: Male (more content not included)... Discharge Instructions * Instructions* Savanna Ramirez MD - 10/05/2020 Images from the original note were not included. After Your Delivery (the Period): Your Care Instructions Thank you for allowing us to care of you at [facility]. This time can be one of many emotional ups and downs and many changes in your life. In these first weeks try to take good care of yourself because you will likely feel very tired. It may take 4 to 6 weeks to feel like yourself again, and possibly longer if you had a . FOLLOW-UP: Your follow-up care is a jaime part of your treatment and safety. Follow-up with your OB provider in 2 and 6 weeks for routine care or as specified by your OB provider. If you had high blood pressure, visit your OB provider within 3-5 days after being home. Most women's blood pressure will return to pre- levels after delivery. However, some patients continueto have problems with their blood pressure, and some even get worse. Very high blood pressure can lead to seizures or stroke which can be life threatening. If ordered by your provider, take your blood pressure at home and call your OB provider if you have a high reading. Your OB provider can write you a prescription for a blood pressure monitor if you do not have one. Be sure to make and go to all appointments, and call your OB provider if you are having problems. It's also a good idea to know your test results and keep a list of the medicines you take. BLEEDING Vaginal bleeding will decrease in amount over the next few weeks. Bleeding may pick and shovel worker and then decrease again around 7-10 days . Use pads instead of tampons for the bloody flow that may last as long as 2 weeks. You will notice that as your activity increases, your flow may increase. Call your provider if you are saturating one maxi pad in an hour & passing large clots for 3 hours or more. ACTIVITY NO SEXUAL activity for 6 weeks or until advised by your OB provider; Nothing in vagina: intercourse, tampons, or douching. Begin to think about your reproductive life plan. Talk to your OB provider about if and when you would like another baby in the future. The recommendation for safe spacing is 18-24 months. Showering is okay; NO tub baths, swimming, or hot tubs. Gradually increase your activity. Resume exercise regimen only after advised by your )OB provider. Avoid lifting anything heavier than ten pounds or a gallon of milk for six weeks. Avoid driving 1 week for vaginal delivery and 2 weeks for section, or longer if you are onprescription pain medicine unless otherwise instructed by your OB provider . Rise slowly from a lying to sitting and then a standing position. Climb stairs carefully. You may feel tired or have a lack of energy. You may continue your vitamin to replenish nutrients post-delivery. Nap when whenever you can to catch up on sleep. EMOTIONS You may feel mejia, sad, teary, & overwhelmed for the first 2 weeks ; however, feelings of depression may occur any time within the first year after delivery. Contact your OBprovider if you feel you may be showing signs of depression, or have thoughts of harmingyourself or or anyone.. WOUND CARE For Vaginal Delivery: Shower daily, and cleanse your perineum (bottom) with mild soap from front to back. Use the plasticsquirt bottle until bleeding stops each time you use the restroom instead of wiping with toilet paper. Ease soreness of hemorrhoids and the area between your vagina and rectum with ice compresses or witch anthony pads. If used, stitches will dissolve in 4-6 weeks on their own. You may use a sitz bath or soak in a clean tub with drain open and water running for comfort. Kegel exercises will help restore bladder control. To do these tighten your muscles as if you were stopping your urine flow. Hold for a few seconds and then relax. Do these throughout the day. For Section Delivery: Keep your incision clean and dry. If you had steri-strips you may remove these once they start falling off. If you have mitra they need to be removed 3-10 daysafter delivery. If you have steri-strips, remove after 7 - 10 days. Do not wear clothing that irritates the incision line. If your incision is in a crease that is not dry, use a hair-dryer to dry the area 3 times a day. If you develop fever, shaking chills, redness, swelling, drainage or discharge from your wound, or if your wound looks like it is coming apart call your provider immediately. BREAST CARE If you develop a warm, red, tender area on your breast or develop a fever contact your OB provider.If your breasts become engorged ask your provider because treatment can vary according to your needs. DIET & CONSTIPATION Eat a well-balanced diet focusing on foods high in fiber and protein such as: whole grain cereals and breads, fruits and vegetables and legumes (eg, beans, lentils) Drink 8-10 glasses of fluids daily, especially water. Limit caffeine. To avoid constipation you may take a mild gfct-crh-qmulcez stool softener (such as colace) as recommended by your OB provider. SWELLING Try to keep your legs elevated when you are sitting or lying down. Stay hydrated and take walks. If you had high blood pressure, weigh yourself at the same time each day. Write down your weight and take the record to your OB provider appointment. MEDICATIONS Take all medications prescribed for you exactly as ordered. Don't take any drugs not prescribed to you or over the counter medicines unless recommended by yourprovider. Don't smoke. WHEN TO CALL THE OB PROVIDER Signs of infection, including fever and chills Increased bleeding: soaking more than one pad an hour or passing clots the size of an egg or larger. Wounds that become red, swollen or drain pus Vaginal discharge that smells foul New pain, swelling, or tenderness in your legs Pain that you can't control with the medications you've been given Pain, burning, urgency or frequency of urination, or persistent bleeding in the urine Cough, shortness of breath, or serious difficulty catching your breath Chest pain or pain in the upper right area of your belly Headache (very painful) or vision changes like blurry or double vision, seeing spots or 'auras' Swelling that is worse or weight gain of more than 3 pounds in 3 days Depression, suicidal thoughts, or feelings of harming someone else Breasts that are hot, red and accompanied by fever Any cracking or bleeding from the nipple or areola (the dark-colored area of the breast) You may have been given a magnet like this: If so, we encourage you to use it on your refrigerator as a reminder of when to call your OB provider. IIn case of an emergency, call 911 immediately. If you are Covid-19 positive or a Person Under Investigation (PUI) These could be signs that your COVID-19 symptoms are worsening and you may need emergency care: You are severely dizzy or lightheaded. You are confused or can't think clearly. Your face and lips have a blue color. You are unable to respond to others or are very hard to wake up. Prevention steps for People with confirmed or suspected COVID-19 (including persons under investigation) who do not need to be hospitalized and People with confirmed COVID-19 who were hospitalized and determined to be medically stable to go home Your healthcare provider and public health staff will evaluate whe ther you can be cared for at home. If it is determined that you do not need to be hospitalized and can be isolated at home, you willbe monitored by staff from your local or state health department. You should follow the prevention steps below until a healthcare provider or local or state health department says you can return to your normal activities. Stay home except to get medical care People who are mildly ill with COVID-19 are able to isolate at home during their illness. You should restrict activities outside your home, except for getting medical care. Do not go to work, school,or public areas. Avoid using public transportation, ride-sharing, or taxis. Separate yourself from other people and animals in your home People: As much as possible, you should stay in a specific room and away from other people in your home. Also, you should use a separate bathroom, if available. Animals: You should restrict contact with pets and other animals while you are sick with COVID-19, just like you would around other people. Although there have not been reports of pets or other animals becoming sick with COVID-19, it is still recommended that people sick with COVID-19 limit contactwith animals until more information is known about the virus. When possible, have another member ofyour household care for your animals while you are sick. If you are sick with COVID-19, avoid contact with your pet, including petting, snuggling, being kissed or licked, and sharing food. If you must care for your pet or be around animals while you are sick, wash your hands before and after you interact with pets and wear a facemask. Call ahead before visiting your provider If you have a medical appointment, call the healthcare provider and tell them that you have or may have COVID-19. This will help the healthcare provider's office take steps to keep other people from getting infected or exposed. Wear a facemask You should wear a facemask when you are around other people (e.g., sharing a room or vehicle) or pets and before you enter a healthcare provider's office. If you are not able to wear a facemask (for example, because it causes trouble breathing), then people who live with you should not stay in the same room with you, or they should wear a facemask if they enter your room. Cover your coughs and sneezes Cover your mouth and nose with a tissue when you cough or sneeze. Throw used tissues in a lined trash can. Immediately wash your hands with soap and water for at least 20 seconds or, if soap and water are not available, clean your hands with an alcohol-based hand head operator that contains at least 60% alcohol. Clean your hands often Wash your hands often with soap and water for at least 20 seconds, especially after blowing your nose, coughing, or sneezing; going to the bathroom; and before eating or preparing food. If soap and water are not readily available, use an alcohol-based hand head operator with at least 60% alcohol, covering all surfaces of your hands and rubbing them together until they feel dry. Soap and water are the best option if hands are visibly dirty. Avoid touching your eyes, nose, and mouth with unwashed hands. Avoid sharing personal household items You should not share dishes, drinking glasses, cups, eating utensils, towels, or bedding with otherpeople or pets in your home. After using these items, they should be washed thoroughly with soap and water. Clean all high-touch surfaces everyday High touch surfaces include counters, tabletops, doorknobs, bathroom fixtures, toilets, phones, keyboards, tablets, and bedside tables. Also, clean any surfaces that may have blood, stool, or body fluids on them. Use a household cleaning spray or wipe, according to the label instructions. Labels contain instructions for safe and effective use of the cleaning product including precautions you should take when applying the product, such as wearing gloves and making sure you have good ventilation during use of the product. Monitor your symptoms Seek prompt medical attention if your illness is worsening (e.g., difficulty breathing). Before seeking care, call your healthcare provider and tell them that you have, or are being evaluated for, COVID-19. Put on a facemask before you enter the facility. These steps will help the healthcare provider's office to keep other people in the office or waiting room from getting infected or exposed. Askyour healthcare provider to call the local or psychiatric hospital health department. Persons who are placed underactive monitoring or facilitated self- monitoring should follow instructions provided by their localhealth department or occupational health professionals, as appropriate. When working with your local health department check their available hours. If you have a medical emergency and need to call 911, notify the dispatch personnel that you have, or are being evaluated for COVID-19. If possible, put on a facemask before emergency medical services arrive. Discontinuing home isolation Patients with confirmed COVID-19 should remain under home isolation precautions until the risk of secondary transmission to others is thought to be low. The decision to discontinue home isolation precautions should be made on a hiik-sr-ilsw basis, in consultation with healthcare providers and [facility] health departments. Information on COVID-19 for all patients Call your provider before your next appointment if you develop any of the following symptoms: fever, cough, fatigue, anorexia, shortness of breath, sputum production, and muscle pains. Headache, confusion, rhinorrhea, sore throat, hemoptysis, vomiting, and diarrhea have been reported but are less common. Some persons with COVID-19 have experienced gastrointestinal symptoms such as diarrhea and nausea prior to developing fever and lower respiratory tract signs and symptoms. Ways to [place] with Anxiety & Stress It is normal to feel anxious or worried about COVID-19. You might feel sad about canceling celebrations and staying away from family and friends. Keep in mind that most people do not get severely ill from COVID-19. It is important to have a planin case you get sick to prevent spreading the disease to others including an Advanced Care Plan (communicating and documenting your desired health care plan with family and healthcare team). You can take care of yourself by: ? Taking a break from watching the news ? Take deep breaths, stretch or meditate ? Getting exercise, eating healthy foods, and drinking plenty of water ? Finding activities you can enjoy inside your home ? Staying in touch with your family and friends. Tell your partner, family, and friends how you arefeeling. Advance Care Planning People with COVID-19 may have no symptoms, mild symptoms, such as fever, cough, and shortness of breath or they may have more severe illness, developing severe and fatal pneumonia. As a result, Advance Care Planning with attention to naming a health care decision maker (someone you trust to make healthcare decisions for you if you could not speak for yourself) and sharing other health care preferences is important BEFORE a possible health crisis. Please contact your Primary Care Provider to discuss Advance Care Planning. Learning About Coronavirus (COVID-19) Coronavirus (COVID-19): Overview What is coronavirus (COVID-19)? The coronavirus disease (COVID-19) is caused by a virus. It is an illness that was first found in [facility], in May 2019. It has since spread worldwide. The virus can cause fever, cough, and trouble breathing. In severe cases, it can cause pneumonia and make it hard to breathe without help. It can cause . Coronaviruses are a large group of viruses. They cause the common cold. They also cause more serious illnesses like [place] respiratory syndrome (MERS) and severe acute respiratory syndrome (SARS). COVID-19 is caused by a novel coronavirus. That means it's a new type that has not been seen in people before. This virus spreads uzqscb-eu-[id number] through droplets from coughing and sneezing. It can also spreadwhen you are close to someone who is infected. It is always good practice to clean high touch surfaces frequently and avoid touching your mouth, nose and eyes until you have washed your hands if you touched these areas. What can you do to protect yourself from coronavirus (COVID-19)? The best way to protect yourself from getting sick is to: Wear a face mask. Avoid areas where there is an outbreak. Avoid contact with people who may be infected. Wash your hands often with soap or alcohol-based hand sanitizers. Avoid crowds and try to stay at least 6 feet away from other people. Wash your hands often, especially after you cough or sneeze. Use soap and water, and scrub for at least 20 seconds. If soap and water aren't available, use an alcohol-based hand head operator. Call 911 anytime you think you may need emergency care. For example, call if: You have severe trouble breathing. (You can't talk at all.) You have constant chest pain or pressure. You are severely dizzy or lightheaded. You are confused or can't think clearly. Your face and lips have a blue color. You pass out (lose consciousness) or are very hard to wake up. Call your OB Provider now if you develop symptoms such as: Shortness of breath. Fever. Cough. If you need to get care, call ahead to the provider's office for instructions before you go. Make sure you wear a face mask, to prevent exposing other people to the virus. Where can you get the latest information? The following health organizations are tracking and studying this virus. Their websites contain themost up-to-date information. You'll also learn what to do if you think you may have been exposed tothe virus. U.[place]. Centers for Disease Control and Prevention (CDC): The CDC provides updated news about the disease and travel advice. The website also tells you how to prevent the spread of infection. www.cdc.gov World Health Organization (WHO): WHO offers information about the virus outbreaks. WHO also has travel advice. www.who.int Current as of: September 28, 2019 Content Version: 12.4 [employer]. Care instructions adapted under license by your healthcare professional. If you have questions about a medical condition or this instruction, always ask your healthcare professional. [employer] disclaims any warranty or liability for your use of this information. General Recommendations for Routine Cleaning and Disinfection of Households Community members can practice routine cleaning of frequently touched surfaces (for example: tables, doorknobs, light switches, handles, desks, toilets, faucets, sinks) with household gauntlet pairer and EPA-registered disinfectants that are appropriate for the surface, following label instructions. Labels contain instructions for safe and effective use of the cleaning product including precautions you should take when applying the product, such as wearing gloves and making sure you have good ventilation during use of the product. These guidelines are focused on household settings and are meant for the general public. Cleaning refers to the removal of germs, dirt, and impurities from surfaces. Cleaning does not killgerms, but by removing them, it lowers their numbers and the risk of spreading infection. Disinfecting refers to using chemicals to kill germs on surfaces. This process does not necessarilyclean dirty surfaces or remove germs, but by killing germs on a surface after cleaning, it can further lower the risk of spreading infection. General Recommendations for Cleaning and Disinfection of Households with People Isolated in Home Care - Confirmed or suspected COVID 19 Household members should educate themselves about COVID-19 symptoms and preventing the spread of COVID-19 in homes. Clean and disinfect high-touch surfaces daily in household common areas (e.g. tables, hard-backed chairs, doorknobs, light switches, remotes, handles, desks, toilets, sinks) o In the bedroom/bathroom dedicated for an ill person: consider reducing cleaning frequency to as-needed (e.g., soiled items and surfaces) to avoid unnecessary contact with the ill person. - As much as possible, an ill person should stay in a specific room and away from other people in their home. - The caregiver can provide personal cleaning supplies for an ill person's room and bathroom, unless the room is occupied by child or another person for whom such supplies would not be appropriate. These supplies include tissues, paper towels, gauntlet pairer and EPA-registered disinfectants (see list link at CDC website). - If a separate bathroom is not available, the bathroom should be cleaned and disinfected after each use by an ill person. If this is not possible, the caregiver should wait as long as practical after use by an ill person to clean and disinfect the high-touch surfaces. How to clean and disinfect: Hard Surfaces Wear disposable gloves when cleaning and disinfecting surfaces. Gloves should be discarded after each cleaning. If reusable gloves are used, those gloves should be dedicated for cleaning and disinfection of surfaces for COVID-19 and should not be used for other purposes. Consult the product manufacturing professional's instructions for cleaning and disinfection products used. Clean hands immediately after gloves are removed. If surfaces are dirty, they should be cleaned using a detergent or soap and water prior to disinfection. For disinfection, diluted household bleach solutions, alcohol solutions with at least 70% alcohol, and most common EPA-registered household disinfectants should be effective. o Diluted household bleach solutions can be used if appropriate for the surface. Follow product manufacturing professional's instructions for application and proper ventilation. Check to ensure the product is not past itsexpiration date. Never mix household bleach with ammonia or any other cleanser. Unexpired householdbleach will be effective against coronaviruses when properly diluted. - Prepare a bleach solution by mixing: - 5 tablespoons (1/3rd cup) bleach per gallon of water or - 4 teaspoons bleach per quart of water o Products with EPA-approved emerging viral pathogens [facility] iconexternal icon are expected to be effective against COVID-19 based on data for harder to kill viruses. Follow the product manufacturing professional's instructions for all cleaning and disinfection products (e.g., concentration, application method and contact time, etc.). Soft (porous) surfaces such as carpeted floor, rugs, and drapes Remove visible contamination if present and clean with appropriate gauntlet pairer indicated for use on these surfaces. After cleaning: Launder items as appropriate in accordance with the product manufacturing professional's instructions. If possible, launder items using the warmest appropriate water setting for the items and dry items completely, or Clothing, towels, linens and other items that go in the laundry Wear disposable gloves when handling dirty laundry from an ill person and then discard after each use. If using reusable gloves, those gloves should be dedicated for cleaning and disinfection of surfaces for COVID-19 and should not be used for other household purposes. Clean hands immediately aftergloves are removed. o If no gloves are used when handling dirty laundry, be sure to wash hands afterwards. o If possible, do not shake dirty laundry. This will minimize the possibility of dispersing virus through the air. o Launder items as appropriate in accordance with the product manufacturing professional's instructions. If possible, launder items using the warmest appropriate water setting for the items and dry items completely. Dirtylaundry from an ill person can be washed with other people's items. o Clean and disinfect clothes hampers according to guidance above for surfaces. If possible, consider placing a pricer bagger that is either disposable (can be thrown away) or can be laundered. [facility] has a list of EPA approved cleaning products on their website - https://www.cdc.gov/coronavirus/ 2019-ncov/community/home/cleaning-disinfection.html https://www.[employer] Bloom[employer]/Pnmfe-Brgpebxgmmb-Pvngkymh-Products-List.pdf Grocery Stores with delivery and pick and shovel worker services: [employer]: Free pick and shovel worker at locations Delivery is $12.95 a month Website - [employer] [place]: Seeing Eye Dog Trainer $2.95 (1st order is free) Delivery is $14.95 Website [email or web address] [place]: customer support associate is free Delivery is $5.95 [employer]: customer support associate is $4.95 Delivery is $9.95 [employer]: customer support associate is $4.95 Delivery is $9.95 [employer]: Can be ordered for delivery and pick and shovel worker with [employer] Website - [employer]: Free deliver for first 3 orders of $35 or more Website [employer] [place] Will deliver from [facility], [facility], [employer], and [employer]. Annual membership is $99 Monthly membership is $14 documented in this encounter History of Present Illness * Ruby Douglas RN - 10/05/2020 7:57 PM EDT Pt off unit in wheelchair carrying baby in car seat. Pt discharged with all belongings. Pt denies questions or concerns. Discharge to home with . * Dalia Prince RN - 10/05/2020 6:21 PM EDT Pt watched discharge teaching video. Reviewed Guide to Caring for Yourself, discharge instructions and home medication list. Encouraged 1) use of the post- warning signs magnet and 2) after discharge to watch for these signs and symptoms: Fever - Oral temperature greater than 100.4 degrees Fahrenheit Foul-smelling vaginal discharge Headache unrelieved by pain medication Difficulty urinating Breasts reddened, hard, hot to the touch Nipple discharge which is foul-smelling or contains pus Increased pain at the site of the laceration Sudden increased vaginal bleeding, soaking a large pad front to back in 1 hour Passing any blood clots bigger than a large egg Difficulty breathing with or without chest pain New calf pain especially if only on one side Unrelieved feelings of inability to cope Patient states understanding and denies questions. . * Savanna Ramirez MD - 10/05/2020 8:14 AM EDT ROUNDS Post- Day #2 s/p Subjective: Patient doing well this am. No complaints. Pain controlled. Tolerating a regular diet. Ambulating and voiding with no difficulty. Lochia: Normal, no clots Feeding: breast Infant: male, desires circ Objective: Vitals: 10/04/20 2153 10/04/20 2341 10/04/20 2342 10/05/20 0510 BP: 100/61 102/66 Pulse: 132 136 131 107 Resp: 18 16 Temp: 98.6 F (37 C) TempSrc: Oral SpO2: 98% 100% 100% 100% Weight: Height: Physical Examination: Appears well, alert and oriented Abdomen Non tender, soft. Uterus Firm, nontender Extremities: non tender, trace edema Lab Results Component Value Date WBC 20.3 (H) 10/05/2020 HGB 8.5 (L) 10/05/2020 HCT 25.3 (L) 10/05/2020 MCV 94.4 10/05/2020 PLT 140 10/05/2020 Assessment: 25 y.o. PPD # 1 s/p , recovering well O POS Immunization History Administered Date(s) Administered Tdap (Boostrix, Adacel) 07/27/2020 Plan: Continue routine care. Home today. Savanna Ramirez * Linda Elizondo RN - 10/04/2020 10:15 PM EDT Mother and father of baby are asking for formula. Mother is hurting bad and pulse is high. Parents made an informed decision and asked for the formula. RN took formula and slow flow nipples into the room. RN gave parents the Formula/Bottle Feeding Your Baby and Paced Bottle Feeding handouts and explained them to parents. Parents verbal understanding and deny any additional questions at this time. RN explained importance of of pumping every time feeds in order for mother's milk supply to come in. She verbalized understanding * Flavio Byrnes DO - 10/04/2020 9:58 PM EDT Called by RN to evaluate patient due to increased pulse and patient cold. Delivered at 6:11pm last night.Has pain in her perineum,pushed for about 3 hours with use of vacuumand had sulcal tears per RN. No CP nor SOB. Has been drinking liquids and eating,lochia light GBS negative Pulse ox 99% HR 130s T 99 112/74 A+Ox3 NAD Talking full sentences without respiratory distress LCTA Cor:Regular,rate rapid Abd:Softly distended No excessive swelling of labia Ext:+1 edema,no calf tenderness Imp:Increased pulse due to pain? Plan:Encouraged oral intake with the [employer] pitcher,2.5 cups per pitcher,attempt 2 before considering IV Check CBC,BMP and serum lactate Will give one Oxycodone for pain. * Linda Elizondo RN - 10/04/2020 9:55 PM EDT Patient's called out stating, something is wrong with my . RN went to room checked vitals. Patient's heartrate is 130's. Fundus and bleeding checked still at midline -2 and firm with scant bleeding. Patient's pain has increased to 8/10. Patient shaking and crying. Temp is 99.0 but patient is covered in [address] Byrnes to come and assess patient. Dr. Byrnes at bedside. Ordering additional lab work and instructed patient to drink more water. Will draw labs and continue to monitor patient. * Jose De Jesus Gonzalez MD - 10/04/2020 2:49 PM EDT Department of Obstetrics and Gynecology Labor and Delivery Attending Post Progress Note SUBJECTIVE: No complaints OBJECTIVE: Vitals: BP 99/61 Pulse 106 Temp 98.5 F (36.9 C) (Oral) Resp 18 Ht 5' 2 (1.575 m) Wt 137 lb (62.1kg) LMP 12/31/2019 SpO2 99% Unknown BMI 25.06 kg/m Uterus firm DATA: CBC: Lab Results Component Value Date WBC 10.6 10/02/2020 RBC 4.02 10/02/2020 HGB 12.8 10/02/2020 HCT 36.9 10/02/2020 MCV 91.8 10/02/2020 RDW 14.0 10/02/2020 PLT 219 10/02/2020 ASSESSMENT & PLAN: Active Problems: Term PROM (premature rupture of membranes) Plan: PPD #1 s/p , CCM * Katie Castle - 10/04/2020 9:01 AM EDT Nutrition rescreen completed. Patient assigned a level 1. * Melanie Yanes RN - 10/04/2020 6:00 AM EDT RN at bedside, to have pt try to go to the bathroom. Pt informed RN pt had just came from the bathroom. Pt states she urinated in the collection hat. 300cc of clear yellow urine in the collection hatin the toilet. Pt states she had her help her to the bathroom and she came back to bed by herself and did not get dizzy. * Melanie Yanes RN - 10/04/2020 1:10 AM EDT RN at bedside. Pt voided approx 30cc of urine. Pt stated she felt like she had to go but could not go. RN explained to pt her bladder more than likely had more urine in it, and she was just unable tourinate. RN explained if she has a full bladder this could put her at risk for increased bleeding. RN recommended for pt to be straight catheterized. Pt agreed. RN assisted pt back to bed, Pt states s he is slightly dizzy while ambulating back to bed. RN at pt side, assisting her back to bed. Pt ambulation is slow. Pt back in bed . RN x2 at bedside for straight cath. RN successfully straight cathed x1 attempt. 300cc flores clear urine emptied at this time. Pt states she feels relief at this time. * Melanie Yanes RN - 10/04/2020 12:40 AM EDT RN at bedside to assess pt and baby. Fundal check is firm with massage, fundus is at deviated to the right. Pt has not urinated after delivery. RN to assist pt to bathroom at this time. Collection hat in toilet to measure urine output. Pt ambulation is slow, but pt tolerated ambulating to the bathroom well. * Melanie Yanes RN - 10/03/2020 9:10 PM EDT RN x2 at bedside. Epidural removed at this time without difficulty. RN assisted pt to sit on the side of the bed. RN then assisted pt to stand. Pt stated she felt like she could bear weight on her legs. Pt took a couple of steps and stated she felt slightly dizzy. RN asked pt if she needed to sit down and pt stated she was fine and could make it to the bathroom. RN and FOB assisted pt to bathroomand sit on the toilet. Evi-care taught at this time. Pt could not void a this time. Underwear, pad, icepack and medicated spray applied at this melo. RN and FOB to assist pt off of toilet. Pt stated she felt dizzy. Pt sat back on toilet. RN placed cold rag on forehead, This RN stayed in bathroom with pt while another RN brought ammonia in the room. Pt states she is starting to feel better. RN hadpt sit on the toilet for a couple more minutes. Pt had a drink of water. Another RN brought wheelchair to bathroom. RN x3 assisted pt to the wheelchair and back into bed. Once in bed BP obtained and at pt baseline. Fundus is firm, midline at U/U with small bleeding. Pt did pass one clot that was not the size of a golf ball. Pt bed was made with clean linen and mattress pad for bed applied for comfort. Pt was also given a clean gown at this time. * Christiane Mg MD - 10/03/2020 4:12 PM EDT Patient comfortable with epidural Complete and pushing Continue expectant management * Christiane Mg MD - 10/03/2020 8:45 AM EDT Pt comfortable with epidural Cervix /-1 Cat 1 toco q2-3 Continue expectant management Cx:deferred FHP: Cat I tracing [place]: q5min A/P: 1. PROM 2. Urehral caruncle 3. Subchorionic hemorrhage of placenta in first trimester. Laying in bed with epidural in place. Denies any pain or discomfort at this time. Continues to haveleakage of fluid. Contractions have slowed to q5mins. Cat I tracing on monitor with no decels present. Continue routine management. \ Cx:deferred FHP: Cat I tracing [place]:irregular A/P: 1. PROM 2. Urethral caruncle 3. Subchorionic hemorrhage of placenta in first trimester Laying on right side and describes increased pain to left side of body. Repositioned so on left side. Describes occasional contraction with increased pain on one side. Nauseated, zofran to be given for same. Cat I tracing with no decels present. Continue routine management. * Keyona Viramontes MD - 10/03/2020 1:18 AM EDT Napoleon Perez is a 25 y.o. female 39w4d VS: Vitals: 10/03/20 0001 10/03/20 0003 10/03/20 0008 10/03/20 0013 BP: 114/76 Pulse: 83 93 90 95 Resp: 18 Temp: 98.3 F (36.8 C) TempSrc: Oral Weight: Height: Pelvic Exam: Cervix Check: per nursing DILATION: FT EFFACEMENT: 50% STATION: -1 cm CONSISTENCY: medium POSITION: posterior POSITION: Cephalic FHT: Category 1 Baseline: 125 Variability: moderate Accelerations: Present Decels: Early Contractions: q2-5 Intervention: None Her pain is well controlled by nothing. Membranes Are: Ruptured clear fluid A/P: 25 y.o. 39w4d Labor: progressing well Fetus: reassuring GBS: neg Other continue to monitor labor. Jensen too frequently for pit augmentation documented in this encounter Summary Purpose Family History No Family History Records Found Relationship Condition Age at Onset Recorded Date/T clayton grandfather Cardiac disease Unknown Diabetes mellitus Unknown father Hypertension Unknown Cerebral aneurysm Unknown Chief Complaint and Reason for Visit Chief Complaint Admit Date Confirm , est care December 13 1:58pm Chief Complaint Admit Date Confirm , est care December 13 1:58pm *NEW* NOB LMP 11/02, DONALD 08/09January 06 12:35pm Reason for Visit Admit Date Amenorrhea December 13, 2024 1:58 pm Amenorrhea January 06, 2025 12:3 5pm Former smoker, stopped smoking in distan t past January 06, 2025 12:35pm Infertility January 06, 2025 12:3 5pm January 06, 2025 12:3 5pm Supervision of normal December 12:35pm Additional Source Comments Ordered Prescriptions (unrec ognized section and content) Prescription Sig Dispensed Refills Start Date End Da te docusate (COLACE, DULCOLAX) 100 MG CAPS Take 100 mg by mouth 2 times daily as needed (constipation) 60 capsule 1 10/05/2020 ferrous sulfate (IRON 325) 325 (65 Fe) MG tablet Take 1 tablet by mouth 2 times daily (with meals) 60 tablet 1 10/05/2020 ibuprofen (ADVIL;MOTRIN) 600 MG tablet Take 1 tablet by mouth every 6 hours 40 tablet 1 10/05/2020 docusate sodium (COLACE, DULCOLAX) 100 MG CAPS Take 100 mg by mouth 2 times daily as needed for Constipation 60 capsule 1 10/05/2020 10/05/2020 ferrous sulfate (IRON 325) 325 (65 Fe) MG tablet Take 1 tablet by mouth 2 times daily (with meals) 60 tablet 1 10/05/2020 10/05/2020 ibuprofen (ADVIL;MOTRIN) 600 MG tablet Take 1 tablet by mouth every 6 hours 40 tablet 1 10/05/2020 10/05/2020 INFORMATION SOURCE (unrecogn ized section and content) DATE CREATED AUTHOR 10/11/2020 [facility] DATE CREATED AUTHOR 'S ORGANIZ ATION 01/15/2025 [facility] Care Teams (unrecognized sec tion and content) Team Status: Inactive Member Role Status Dates VINEET Damon Attending Provider Active Start: December 13, 2024 End: December 13, 2024 Team Status: Inactive Member Role/Relationship Status Dates VINEET Damon Attending Provider Active Start: December 13, 2024 End: December 13, 2024 Team Status: Inactive Member Role/Relationship Status Dates Aileen Jacinto CNM Attending Provider Active S tart: January 06, 2025 End: January 06, 2025 Team Status: Inactive Member Role/Relationship Status Dates Aileen Jacinto CNM Attending Provider Active S tart: January 06, 2025 End: January 06, 2025 Goals (unrecognized section and content) Goals may be documented in a n alternate sectionGoals may be documented in an alternate sectionGoals may be documented in an alternate section FOR RECORDS PERTAINING TO PATIENTS WHO ARE OR HAVE BEEN ENROLLED IN A CHEMICAL DEPENDENCY/SUBSTANCEABUSE PROGRAM, SOME INFORMATION MAY BE OMITTED. This clinical summary was aggregated from multiple sources. Caution should be exercised in using it in the provision of clinical care. This summary normalizes information from multiple sources, and as a consequence, information in this document may materially change the coding, format and clinical context of patient data. In addition, data may be omitted in some cases. CLINICAL DECISIONS SHOULD BE BASED ON THE PRIMARY CLINICAL RECORDS. [facility] [employer] provides no warranty or guarantee of the accuracy or completeness of information in this document.
== END | disposition home or self-care (01) ==
PROVIDERS: Advanced Practice Midwife; Visit Provider Obstetrics & Gynecology
DX: Z34.90 Encounter for supervision of normal pregnancy, unspecified, unspecified trimester (principal)
CPT/HCPCS: 36415; 85025; 86703; 86762; 86780; 86803; 86850; 86900; 86901; 87340

== ENCOUNTER 2025-03-12 03:05 | Emergency (ER) | payer BC, SELFPAY ==
[2025-03-12 03:06] VITALS: BP 113/74; PULSE 94; RESP 16; TEMP 36.6; O2SAT 100; BMI 24.7
--- NOTE | 2025-03-12 03:49 | ED.VIS.FEGU ---
HPI HPI - Female History of Present Illness Chief Complaint: Vag Bld, Preg Narrative Narrative: Patient is a 29-year-old female presenting to the emergency department for vaginal bleeding. Patient is 18 weeks and 2 days . She is G2, P1. She just had her 18-week visit on 03/10. thus far has been normal. She is scheduled for her anatomy scan at the end of the month. Patient states that this evening around 10 PM she noted some pink spotting. She states when she went to the bathroom this evening around 2 AM she noticed 3 drops of blood. She denies any abdominal pain, nausea, vomiting. Denies any abdominal trauma. Denies any vaginal trauma and denies any recent sexual intercourse. Denies any dysuria or hematuria. Denies any leakage of fluids. PFSH [facility] Medical History Gynecologic exam normal Home Medications ?Medication ?Instructions ?Recorded ?Last Taken ?Type vits 75-iron 28 mg-folic pkg PO 12/13/24 Unknown History acid 800 mcg-omega-3 oral combo pack (One A Day Women's DHA) clobetasol 0.05 % topical cream 1 applic topical BID 2 weeks #45 01/31/25 Unknown Rx grams Allergy/AdvReac Type Severity Reaction Status Date / Time shrimp Allergy Mild Rash Verified 03/10/25 13:57 Family History Grandfather Heart disease Diabetes Father Hypertension Brain aneurysm in 40s Social History adopted: No household members: spouse, family and children housing: house number of children: 1 current occupational status: employed current occupation: [employer] 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) pets and animals: Yes (Avoid litterbox ) pets and animals: cat(s) history of recent travel: No sexually active: Yes Smoking Status: Never smoker second hand exposure: No alcohol intake: current alcohol intake frequency: holidays/special occasions only details: Not while substance use type: does not use well-balanced diet: daily or most days caffeine: No eating out: 1-3 times/week during the past year weight has: remained stable what type of physical activity do you participate in: none chung/samaritan: None seatbelt use: always do you feel safe at home: Yes 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 No acute distress HEENT: Head is normocephalic and atraumatic, sinuses nontender, pupils equal round and reactive. Nares are patent. Oropharynx and throat exams normal. Neck: Supple without lymphadenopathy nontender Cardiovascular: Regular rate and rhythm, no murmurs. No rubs or gallops. Normal S1 and S2 Respiratory: Clear to auscultation bilaterally. No wheezes, rales, rhonchi Abdominal: Soft and nontender. Normal bowel sounds. No guarding or rebound. Nonsurgical abdomen : Done with jean RN at bedside. Normal external female genitalia. No blood noted on external exam. On external rectal exam there is no noted hemorrhoid or fissure. On internal pelvic exam the cervix is closed there is no erythema of the cervix. There is no blood coming from the cervix. There is no blood in the vaginal vault. There is no lacerations. Extremities: No tenderness. No bruising. Normal range of motion. Normal sensation. The rest of the physical exam is unremarkable Const Vital Signs: 03/12/25 03:06 03/12/25 04:55 Temperature 98 F 98 F Temperature Source Oral Pulse Rate 94 88 Respiratory Rate 16 16 Blood Pressure 113/74 100/70 Blood Pressure Mean 87 80 Pulse Ox 100 100 Oxygen Delivery Method Room Air MDM MDM MDM Narrative Medical decision making narrative: Patient is a 29-year-old female presenting to the emergency department for vaginal bleeding. She is 18 weeks and 2 days. Patient was seen and examined. Vitals are stable. Patient resting in bed comfortably no acute distress. Differential includes but is not limited to: Threatened vs inevitable vs incomplete , cervicitis, UTI, less likely ectopic given normal US reported at OBGYN visits OB ultrasound was completed by myself at bedside. Normal movement. heart rate of 138. Normal-appearing placenta. Pelvic exam done with RN at bedside the cervix was closed and there was no blood coming from the cervix or in the vaginal vault. Will obtain a urine sample for urinalysis and quant hCG. Urinalysis with no bacteria, WBCs, leukoesterase, nitrites. There is occult blood. Will send for urine culture. I recommended that the patient follow-up with her MUSIC VIDEO DIRECTOR as soon as possible. Given no vaginal bleeding, normal ultrasound there is no indication of miscarriage. I did speak with the patient's MUSIC VIDEO DIRECTOR, Dr. Miller to notify the patient was here. She did asked that the urine be sent for culture to evaluate for any UTI. Patient discharged from the Emergency Department. I do not feel that the patient's evaluation reveals any acute reason for admission at this time. I instructed them to either follow-up with their primary care physician or promptly return to the Emergency Department for reevaluation should symptoms worsen or new symptoms develop. I explained what symptoms would indicate the need to return to the emergency department. Shared decision making was used. The patient voiced understanding of the treatment plan and is agreeable with it. Clinical impression Hematuria Concern of vaginal bleeding during History & Record Review Discussion w/independent historian: Patient and Significant other Lab Data Attestation: I reviewed the patient's lab results. Labs: Laboratory Results - last 24 hr 03/12/25 03/12/25 03:26 03:50 HCG, Quant H Urine Color Yellow Urine Clarity Clear Urine pH 7.0 Ur Specific [place] 1.010 Urine Protein 15 H Urine Glucose (UA) Normal Urine Ketones Negative Urine Occult Blood 25 H Urine Nitrite Negative Urine Bilirubin Negative Urine Urobilinogen Normal Ur Leukocyte Esterase Negative Urine RBC 0 SEEN Urine WBC 0 SEEN Ur Squamous Epith Cells 0 SEEN Urine Bacteria 0 SEEN Urine Mucus 0 SEEN Discharge Plan Triage Chief Complaint: Vag Bld, Preg ED Provider: Delphine Daily Dx/Rx/DC Orders Clinical Impression: Vaginal bleeding during Instructions: Vaginal Bleeding During Prescriptions: No Action One A Day Women's DHA 28 mg iron- 800 mcg combo pack PO clobetasol 0.05 % cream 1 applic topical BID 14 Days Qty: 45 5RF Rx Instructions: use 2 x a day for 2 weeks on and 2 weeks off till cleared then as needed Primary Care Provider: Care Physician,No Primary Referrals: Dee Miller MD [Med Staff - Active Staff] - 1 Day for another exam Activity Restrictions/Additional Instructions: Follow up with your OBGYN as soon as possible for a repeat exam. If you have any abdominal pain, increased vaginal bleeding, leakage of fluids, nausea, vomiting you need to return to the ED immediately. Print Language: Djiboutian Disposition Disposition: Home, Self Care Discharge Date/Time: 03/12/25 04:58
[2025-03-12 04:02] LABS: Mucous, Urine 0 SEEN /hpf (<or=2+); Red Blood Cells-Urine 0 SEEN /hpf (0-5); Squamous Epithelial Cells - UA 0 SEEN /hpf (5-10)
[2025-03-12 04:04] LABS: Color, Urine Yellow (Yellow); Glucose, Dipstick Normal (Normal); Ketone-Dipstick Negative (Negative); Leukocyte Esterase-Dipstick Negative /ul (Negative); Nitrite-Dipstick Negative (Negative); Occult Blood-Urine 25 /ul (Negative); Protein-Dipstick 15 mg/dl (Negative); Specific Gravity, Urine 1.010 (1.002-1.030); Urine Bilirubin Dipstick Negative (Negative)
[2025-03-12 04:31] LABS: hCG Titer Quant., Serum 20904 mIU/mL (<9 non-preg)
--- OUTSIDE RECORDS SUMMARY | 2025-03-12 04:39 | XMS RPT_ITS | CCD ---
Author Organization [facility] Care Team Providers Care Fitter / Welder Name Role Phone Unavailable Primary Care Provider UnavailPatria Calderon Attending Provider [phone] Aileen Jacinto CNM Attending Provider Dr. Keyona Marshall DO Attending Provider Jody Whyte Attending Provider Dr. Dee Miller MD Attending Provider Dee Miller Attending Unavailable Keyona Marshall Attending UnavailAileen Campbell Attending Unavailable Dee Miller Attending Unavailable Patria Dooley Attending Unavailable Aileen Jacinto Attending Unavailable Allergies Allergy Classification Reported Allergen(s) Allergy Type Date of Onset Reaction(s) Facility (5 sources) shrimp allergenic extract Drug Allergy 01-06-2025 [facility] (1 source) Shrimp product Drug allergy (disorder) 02-06-2025 [facility] Repository Medications Current Medications Medication Drug Class(es) [...] Start: 10-02-2020 End: 10-03-2020 lactated ringers infusion clobetasol propionate 0.5 mg/ml topical cream (2 sources) Corticosteroid Start: 01-31-2025 Clobetasol 0.05 % cream Active 1 NMA TOPICAL TWICE A DAY 45 14 5 January 31, 2025 12:00am Psoriasis Psoriasis, unspecified use 2 x a day for 2 weeks on and 2 weeks off till cleared then as needed doxylamine succinate 25 mg oral tablet (1 [...] lanolin ointment (1 source) Start: 10-03-2020 lansinoh lanolin ointment methylPREDNISolone 4 mg oral tablet (1 source) Corticosteroid Start: 02-06-2025 take 1 tablet by mouth once Methylprednisolone (Medrol (Hayder)) 4 mg tablets,dose pack Active 0 PO per package directions 21 0 February 06, 2025 12:00am PO PER PKG DIR 2 ml ondansetron 2 mg/ml injection (2 sources) Serotonin-3 Receptor Antagonist Start: 10-02-2020 End: 10-03-2020 ondansetron (ZOFRAN) injection 4 mg Guasor88-Awrm Fum-Folic Ac-Om3 (One A Day Women's Dha) 28 mg iron- 800 mcg combo pack (5 sources) Start: 12-13-2024 Jryxze91-Cslh Fum-Folic Ac-Om3 (One A Day Women's Dha) 28 mg iron- 800 mcg combo pack Active NMA PO December 13, 2024 12:00am 75-Iron Anr-Oopyu-Vv4 (One A Day Women's Dha) 28 mg iron- 800 mcg combo pack (1 source) Start: 12-13-2024 75-Iron Dxd-Hdtxt-Ez4 (One A Day Women's Dha) 28 mg [...] (OB) epidural (1 source) Start: 10-03-2020 ropivacaine 0.2% in sodium chloride 0.9% 200mL [...] Date Documented Da te Episodic/Chronic Menstrual disorders (20 sources) Missed period; Translations: [Amenorrhea] Onset: 01-06-2025 12-13-2024 Chronic Comment on above: nurse visit; positiv e test today. RTO as scheduled for New OB Other complications of (1 source) High risk ; Translations: [Supervision of high risk in first trimester] Episodic Other inflammatory condition of skin (5 sources) Psoriasis; Translations: [Psoriasis, unspecified] 01-31-2025 Chronic Other and delivery including normal (20 sources) Term ; Translations: [Normal ] Onset: 03-15-2020 10-03-2020 Episodic Comment on above: , DONALD 08/09/25, P C Andrea, Andrea declined NIPT & Chacon ier testing PRR, , DONALD , PC Andrea, Andrea declined Carrier arturo ting. NIPT low risk male. Other screening for suspected conditions (not mental disorders or infectious disease) (2 sources) care status; Translations: [Encounter for screening for malignant neoplasm of cervix] Onset: 01-06-2025 Episodic Polyhydramnios and other problems of amniotic cavity (5 sources) Subchorionic hematoma; Translations: [Premature rupture of membranes] Onset: 03-15-2020 03-15-2020 Episodic Residual codes; unclassified (13 sources) Infertile 12-23-2024 Episodic Comment on above: 3yrs to conceive eac h Residual codes; unclassified (1 source) 9 weeks gestation of ; Translations: [9 weeks gestation of ] Onset: 01-06-2025 Episodic Screening and history of mental health and substance abuse codes (14 sources) Ex-smoker; Translations: [Personal history of nicotine dependence] Onset: 01-06-2025 12-23-2024 Episodic Unclassified (2 sources) Patient encounter status; Translations: [ care, antepartum] Onset: 03-15-2020 03-15-2020 Past or Other Problems Problem Classification Problem Date Documented Da te Episodic/Chronic Other diseases of bladder and urethra (2 sources) Urethral caruncle; Translations: [Urethral caruncle] Onset: 04-26-2020 04-26-2020 Episodic Results Test Name Value Interpretation Reference Range Facility Laboratory - Chemistry and C hemistry - challengeOrdered By: Dee Miller on 02-06-2025 Glucose Ql (U) Negative [facility] Laboratory - UrinalysisOrder ed By: Dee Miller on 02-06-2025 Protein Ql (U) Negative [facility] Manager Decision Support Office Visit Reporton 02-06-2025 Manager Decision Support Office Visit Report [facility] [address], [address] [place] [address] OFFICE VISIT Date of Service: 02/06/25 MR#: [id number] Acct: [id number] Name: LOLA PEREZ Rep #: [id number] : 1995 Provider: Dr. Dee rodríguez MD Age/Sex: 29/F Location: [facility] Status: Signed Intake Vital Signs 12/13/24 14:03 01/31/25 20:02 02/06/25 16:01 Height 5 ft 2 in 5 ft 2 in 5 ft 2 in Weight: 121 lb BMI 22.1 BP 96/63 Intake Visit Reasons: 13 wk OB Motion Picture Narrator Required: No Is patient in pain?: No Allergies shrimp Allergy (Mild, Verified 02/06/25 16:01) Rash Medications ???Medication ???Instructions ???Recorded ???Confirmed ???Type vits 75-iron 28 mg-folic pkg PO 12/13/24 02/06/25 History acid 800 mcg-omega-3 oral combo pack (One A Day Women's DHA) clobetasol 0.05 % topical cream 1 applic topical BID 2 weeks #45 0 01/31/25 02/06/25 Rx grams methylprednisolone 4 mg tablets in See Rx Instructions PO PER PKG D IR 02/06/25 02/06/25 Rx a dose pack (Medrol (Hayder)) #21 tabs Last Menstrual Period: 11/02/24 Zika: Zika virus screening: Negative : No PFSH PFSH Medical History Gynecologic exam normal Family History Grandfather Heart disease Diabetes Father Hypertension Brain aneurysm in 40s Social History adopted: No household members: spouse, family and children housing: house number of children: 1 current occupational status: employed current occupation: [employer] 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) [...] physical activity do you participate in: none chung/mormon: None seatbelt use: always do you feel safe at home: Yes 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 Date Name GA/Weeks Outcome Route Bth Weight [facility]20 Andrea Suarez 40 live - full term 7lbs 5oz Male epidur gayathri Mendez HPI 13 wk OB Details: LOLA PEREZ is a 29 year old who presents for routine OB visit. OB Visit DONALD Calculator Estimated Delivery Date Method Current WG Current Estimate 08/09/25 LMP (Certain) 13w 5d Other Estimates 08/05/25 Ultrasound #1 14w 2d Expected Delivery Route/Plan Labor Preferences- CB/BF classes: [...] list details Initial Weight: 121 lb Date -???-???-???-???-?? ?-???-???-???-???-? ??-???-???- EGA Weight BP Urine Prot -???-???-???-???-?? ?-???-???-???-???-? ??-???-???- Glucose FHR FuHt Pres Dilation -???-???-???-???-?? ?-???-???-???-???-? ??-???-???- Effaced St Visit Note 01/06/25 -???-???-???-???-?? ?-???-???-???-???-? ??-???-???- 9w 2d 121 lb 2 oz (+2 oz) 106/69 -???-???-???-???-?? ?-???-???-???-???-? ??-???-???- 158 -???-???-???-???-?? ?-???-???-???-???-? ??-???-???- KW- CRL 2.96 cm cons with date. Accepts NIPT 02/06/25 -???-???-???-???-?? ?-???-???-???-???-? ??-???-???- 13w 5d 121 lb (+0 oz) 96/63 Negative -???-???-???-???-?? ?-???-???-???-???-? ??-???-???- Negative 150 -???-???-???-???-?? ?-???-???-???-???-? ??-???-???- SM- no vb cr amping has severe pruritic rash all over arms trunk back, saw derm and was told psoriasis, not improving with steroid cream, no biopsy was done, reocm (more content not included)... Normal [facility] Absolute lymphocyte countOrd ered By: Aileen Orville on 01-16-2025 Lymphocytes Auto (Unsp spec) [#/Vol] 1.60 10*3/uL 0.83-4.51 [facility] Absolute neutrophil countOrd ered By: Aileen Jacinto on 01-16-2025 Neutrophils (Bld) [#/Vol] 4.1 10*3/uL 2.0-7.7 [facility] Automated lymphocyte count a s percentage of total leukocytesOrdered By: Aileen Jacinto on 01-16-2025 Lymphocytes/100 WBC Auto (Unsp spec) 24.3 % 19-41 [facility] Basophil percentageOrdered B y: Aileen Orville on 01-16-2025 Basophils/100 WBC (Bld) 0.5 % 0-1 [facility] CBC W/Diff, Automatedon 12-28 Absolute Lymph 1.60 X10 3/uL Normal 0.83-4.51 [facility] Comment on above: Performed By: #### L 100.0100, L900.0098, L3890.6006, L3890.6102, L509.8002, L509.4006, BTS, L3890.6301 #### [facility] Laboratory [place], [address] Absolute Neut 4.1 X10 3/uL Normal 2.0-7.7 [facility] Comment on above: Performed By: #### L 100.0100, L900.0098, L3890.6006, L3890.6102, L509.8002, L509.4006, BTS, L3890.6301 #### [facility] [address] [place], [address] Basophils/100 WBC (Bld) 0.5 % Normal 0-1 [facility] Comment on above: Performed By: #### L 100.0100, L900.0098, L3890.6006, L3890.6102, L509.8002, L509.4006, BTS, L3890.6301 #### [facility] [address] [place], [address] Eosinophils/100 WBC (Bld) 6.8 % High 0-5 [facility] Comment on above: Performed By: #### L 100.0100, L900.0098, L3890.6006, L3890.6102, L509.8002, L509.4006, BTS, L3890.6301 #### [facility] [address] [place], [address] Erythrocyte distribution width (RBC) [Ratio] 12.9 % Normal 11.6-14.6 [facility] Comment on above: Performed By: #### L 100.0100, L900.0098, L3890.6006, L3890.6102, L509.8002, L509.4006, BTS, L3890.6301 #### [facility] [address] [place], [address] Hematocrit (Bld) [Volume fraction] 37.6 % Normal 37-47 [facility] Comment on above: Performed By: #### L 100.0100, L900.0098, L3890.6006, L3890.6102, L509.8002, L509.4006, BTS, L3890.6301 #### [facility] [address] [place], [address] Hemoglobin (Bld) [Mass/Vol] 12.6 g/dL Normal 12.0-15.0 [facility] Comment on above: Performed By: #### L 100.0100, L900.0098, L3890.6006, L3890.6102, L509.8002, L509.4006, BTS, L3890.6301 #### [facility] [address] [place], [address] IG% 0.500 Normal 0.0-0.9 [facility] Comment on above: Result Comment: IG% - Immature Granulocytes (promyelocytes, myelocytes and metamyelocytes) > 1% indicates that a LEFT SHIFT is Present. Performed By: #### L 100.0100, L900.0098, L3890.6006, L3890.6102, L509.8002, L509.4006, BTS, L3890.6301 #### [facility] [address] [place], [address] Lymphocytes/100 WBC (Bld) 24.3 % Normal 19-41 [facility] Comment on above: Performed By: #### L 100.0100, L900.0098, L3890.6006, L3890.6102, L509.8002, L509.4006, BTS, L3890.6301 #### [facility] [address] [place], [address] MCH (RBC) [Entitic mass] 29.9 pg Normal 27.0-32.0 [facility] Comment on above: Performed By: #### L 100.0100, L900.0098, L3890.6006, L3890.6102, L509.8002, L509.4006, BTS, L3890.6301 #### [facility] [address] [place], [address] MCHC (RBC) [Mass/Vol] 33.5 g/dL Normal 32-36 [facility] Comment on above: Performed By: #### L 100.0100, L900.0098, L3890.6006, L3890.6102, L509.8002, L509.4006, BTS, L3890.6301 #### [facility] [address] [place], [address] MCV (RBC) [Entitic vol] 89.3 fL Normal 81-99 [facility] Comment on above: Performed By: #### L 100.0100, L900.0098, L3890.6006, L3890.6102, L509.8002, L509.4006, BTS, L3890.6301 #### [facility] [address] [place], [address] Monocytes/100 WBC (Bld) 5.5 % Normal 0-10 [facility] Comment on above: Performed By: #### L 100.0100, L900.0098, L3890.6006, L3890.6102, L509.8002, L509.4006, BTS, L3890.6301 #### [facility] [address] [place], [address] Neutrophils/100 WBC (Bld) 62.4 % Normal 47-70 [facility] Comment on above: Performed By: #### L 100.0100, L900.0098, L3890.6006, L3890.6102, L509.8002, L509.4006, BTS, L3890.6301 #### [facility] [address] [place], [address] Nucleated RBC (Bld) [#/Vol] 0 10*3/uL Normal 0-5 [facility] Comment on above: Performed By: #### L 100.0100, L900.0098, L3890.6006, L3890.6102, L509.8002, L509.4006, BTS, L3890.6301 #### [facility] [address] [place], [address] Platelet mean volume (Bld) [Entitic vol] 10.1 fL Normal 6.2-12.0 [facility] Comment on above: Performed By: #### L 100.0100, L900.0098, L3890.6006, L3890.6102, L509.8002, L509.4006, BTS, L3890.6301 #### [facility] [address] [place], [address] Platelets (Bld) [#/Vol] 250 10*3/uL Normal 150-450 [facility] Comment on above: Performed By: #### L 100.0100, L900.0098, L3890.6006, L3890.6102, L509.8002, L509.4006, BTS, L3890.6301 #### [facility] [address] [place], [address] RBC (Bld) [#/Vol] 4.21 10*6/uL Normal 4.2-5.4 [facility] Comment on above: Performed By: #### L 100.0100, L900.0098, L3890.6006, L3890.6102, L509.8002, L509.4006, BTS, L3890.6301 #### [facility] [address] [place], [address] RDW SD 42.3 fl Normal 35.1-43.9 [facility] Comment on above: Performed By: #### L 100.0100, L900.0098, L3890.6006, L3890.6102, L509.8002, L509.4006, BTS, L3890.6301 #### [facility] [address] [place], [address] WBC (Bld) [#/Vol] 6.6 10*3/uL Normal 4.4-11.[address] [facility] Comment on above: Performed By: #### L 100.0100, L900.0098, L3890.6006, L3890.6102, L509.8002, L509.4006, BTS, L3890.6301 #### [facility] [address] [place], [place], [address] Eosinophil percentageOrdered By: Aileen Jacinto on 01-16-2025 Eosinophils/100 WBC (Bld) 6.8 % High 0-5 [facility] Erythrocyte distribution wid th ratioOrdered By: Aileen Jacinto on 01-16-2025 Erythrocyte distribution width (RBC) [Ratio] 12.9 % 11.6-14.6 [facility] Erythrocyte distribution wid th standard deviationOrdered By: Aileen Jacinto on 01-16-2025 Erythrocyte distribution width (RBC) [Ratio] 42.3 fl 35.1-43.9 [facility] HIVon 01-16-2025 HIV Non-Reactive Normal Nonreactive [facility] Comment on above: Result Comment: Non- Reactive Reactive Repeatedly reactive samples must be confirmed according to CDC recommended confirmatory algorithms. The subresults for either HIVAG or AHIV can be used as an aid in the selection of the confirmation algorithm for reactive samples. Send out specimens with Reactive results to [facility] for confirmation. Order the HIV antibody detection and differentiation: #[id number] Performed By: #### L 100.0100, L900.0098, L3890.6006, L3890.6102, L509.8002, L509.4006, BTS, L3890.6301 ####[facility] [address] [place], [place], [id number] Hematocrit Auto (Bld) [Volum e fraction]Ordered By: Aileen Jacinto on 01-16-2025 Hematocrit (Bld) [Volume fraction] 37.6 % 37-47 [facility] Hemoglobin measurementOrdere d By: Aileen Jacinto on 01-16-2025 Hemoglobin (Bld) [Mass/Vol] 12.6 g/dL 12.0-15.0 [facility] Hepatitis C Antibodyon 01-16 Hepatitis C Ab Non-Reactive Normal Nonreactive [facility] Comment on above: Result Comment: Reac tive: Presumptive evidence of antibodies to HCV. Follow CDC recommendations for supplemental testing. Non-Reactive: Antibodies to HCV were not detected; does not exclude the possibility of exposure to HCV Reactive Results are presumptive evidence of antibodies to HCV. Follow CDC recommendations for supplemental testing. Order confirmation testing: HCV Quant by PCR testing - HCVPCR #[id number] Non Reactive: < 0.8 Equivocal: >/= 0.8 to < 1.0 Reactive: >/= 1.0 The [facility] requires that a reactive/equivocal HCV antibody result be sent out for confirmation. HCV Quant by PCR testing. Performed By: #### L 100.0100, L900.0098, L3890.6006, L3890.6102, L509.8002, L509.4006, BTS, L3890.6301 ####[facility] [address] [place], [place], [id number] Immature granulocytes/100 WB C Auto (Bld)Ordered By: Aileen Jacinto on 01-16-2025 Immature granulocytes/100 WBC (Bld) 0.500 % 0.0-0.9 [facility] Comment on above: IG% - Immature Granu locytes (promyelocytes, myelocytes and metamyelocytes) > 1% indicates that a LEFT SHIFT is Present. L3890.6102on 01-16-2025 HEP B Surf Ag Non-Reactive Normal Nonreactive [facility] Comment on above: Result Comment: Reac tive: Presumptive evidence of HBV. Repeatedly reactive samples must be confirmed using a neutralization test ([employer] HBsAg Confirmatory Test) Non-Reactive: HBsAg not detected; does not exclude the possibility of exposure to HBV Performed By: #### L 100.0100, L900.0098, L3890.6006, L3890.6102, L509.8002, L509.4006, BTS, L3890.6301 ####[facility] [address] [place], [place], [address] L509.4006on 01-16-2025 Rubella IgG REAC Normal Nonreactive [facility] Comment on above: Result Comment: Anti body Result: Interpretation Non-Reactive: Non-Immune Reactive: Immune The following results were obtained with the [employer] Rubella IgG assay. Results from assays of other manufacturers cannot be used interchangeably. Performed By: #### L 100.0100, L900.0098, L3890.6006, L3890.6102, L509.8002, L509.4006, BTS, L3890.6301 #### [facility] [address] [place], [address] Laboratory - Microbiology an d Antimicrobial susceptibilityOrdered By: Aileen Jacinto on 01-16-2025 HBV surface Ag Ql (S) Non-Reactive Nonreactive [facility] Comment on above: Reactive: Presumptiv e evidence of HBV. Repeatedly reactive samples must be confirmed using a neutralization test ([employer] HBsAg Confirmatory Test)Non-Reactive: HBsAg not detected; does not exclude the possibility of exposure to HBV MCV (mean corpuscular volume ) determinationOrdered By: Aileen Jacinto on 01-16-2025 MCV (RBC) [Entitic vol] 89.3 fL 81-99 [facility] Mean corpuscular hemoglobin (MCH) determinationOrdered By: Aileen Jacinto on 01-16-2025 MCH (RBC) [Entitic mass] 29.9 pg 27.0-32.0 [facility] Mean corpuscular hemoglobin concentration (MCHC) determinationOrdered By: Aileen Jacinto on 01-16-2025 MCHC (RBC) [Mass/Vol] 33.5 g/dL 32-36 [facility] Mean platelet volume determi nationOrdered By: Aileen Jacinto on 01-16-2025 Platelet mean volume (Bld) [Entitic vol] 10.1 fL 6.2-12.0 [facility] Monocyte percentageOrdered B y: Aileen Jacinto on 01-16-2025 Monocytes/100 WBC (Bld) 5.5 % 0-10 [facility] NATERAon 01-16-2025 NATURA SEE SCANNED REPORT Normal [facility] Comment on above: Performed By: #### L 100.0100, L900.0098, L3890.6006, L3890.6102, L509.8002, L509.4006, BTS, L3890.6301 #### [facility] [address] [place], [address] Neutrophil percentageOrdered By: Aileen Jacinto on 01-16-2025 Neutrophils/100 WBC (Bld) 62.4 % 47-70 [facility] No Panel InformationOrdered By: Aileen Jacinto on 01-16-2025 HIV (1&2) Antibody Non-Reactive Nonreactive [facility] Comment on above: Non-ReactiveReactive Repeatedly reactive samples must be confirmed according to CDC recommended confirmatory algorithms. The subresults for either HIVAG or AHIV can be used as an aid in the selection of the confirmation algorithm for reactive samples.Send out specimens with Reactive results to [facility] for confirmation.Order the HIV antibody detection and differentiation: #[id number] Nucleated red blood cell per centageOrdered By: Aileen Jacinto on 01-16-2025 Nucleated RBC/100 WBC (Bld) [Ratio] 0 % 0-5 [facility] Platelet countOrdered By: Claude Jacinto on 01-16-2025 Platelets (Bld) [#/Vol] 250 10*3/uL 150-450 [facility] RBC Auto (Bld) [#/Vol]Ordere d By: Aileen Jacinto on 01-16-2025 RBC (Bld) [#/Vol] 4.21 10*6/uL 4.2-5.4 [facility] Syphilis Antibodieson 2024 Syphilis Abs Non-Reactive Normal Nonreactive [facility] Comment on above: Performed By: #### L 100.0100, L900.0098, L3890.6006, L3890.6102, L509.8002, L509.4006, BTS, L3890.6301 ####[facility] [address] [place], [address] Type AND Screenon 01-16-2025 Ab SCREEN GEL Negative Normal [facility] Comment on above: Order Comment: PN Performed By: #### L 100.0100, L900.0098, L3890.6006, L3890.6102, L509.8002, L509.4006, BTS, L3890.6301 #### [facility] [address] [place], [address] White blood cell (WBC) count Ordered By: Aileen Jacinto on 01-16-2025 WBC (Bld) [#/Vol] 6.6 10*3/uL 4.4-11.[address] [facility] PAP IG HPV APTIMA 16/18,45on 01-13-2025 ADEQ Comment Normal . [facility] Comment on above: Order Comment: Speci men Comment: [id number] Specimen Comment: No. of containers..01 ThinPrep Vial Result Comment: Sati sfactory for evaluation. Endocervical and/or squamous metaplastic cells (endocervical component) are present. Performed By: #### L 7000.1800, M100.2200, L7400.0280 #### [facility] [address] [place], [address] COMM . Normal . [facility] Comment on above: Order Comment: Speci men Comment: [id number] Specimen Comment: No. of containers..01 ThinPrep Vial Performed By: #### L 7000.1800, M100.2200, L7400.0280 #### [facility] [address] [place], [address] COMMENT Comment Normal . [facility] Comment on above: Order Comment: Speci men Comment: [id number] Specimen Comment: No. of containers..01 ThinPrep Vial Result Comment: This liquid based ThinPrep(R) pap test was screened with the use of an image guided system. Performed By: #### L 7000.1800, M100.2200, L7400.0280 #### [facility] [address] [place], [address] DIAG Comment Normal . [facility] Comment on above: Order Comment: Speci men Comment: [id number] Specimen Comment: No. of containers..01 ThinPrep Vial Result Comment: NEGA TIVE FOR INTRAEPITHELIAL LESION OR MALIGNANCY. Performed By: #### L 7000.1800, M100.2200, L7400.0280 #### [facility] [address] [place], [address] HPV APTIMA, HR Negative Normal Negative [facility] Comment on above: Order Comment: Speci men Comment: [id number] Specimen Comment: No. of containers..01 ThinPrep Vial Result Comment: This nucleic acid amplification test detects fourteen high- risk HPV types (16,18,31,33,35,39,45,51,52,56,58,59,66,68) without differentiation. Performed By: #### L 7000.1800, M100.2200, L7400.0280 #### [facility] [address] [place], [place], [id number] HPV Rhina Rfx Comment Normal . [facility] Comment on above: Order Comment: Speci men Comment: [id number] Specimen Comment: No. of containers..01 ThinPrep Vial Result Comment: Crit eria not met, HPV Genotype not performed. Performed at: [facility] Cyto Histo [address] [place], [place] [id number] Tubing Drier: Danny Cabrera MD, Phone: [phone] Performed at: - [address] [id number] Tubing Drier: Valencia Vásquez MD, Phone: [phone] Performed at: = - [address] [id number] Tubing Drier: Valencia Vásquez MD, Phone: [phone] Performed By: #### L 7000.1800, M100.2200, L7400.0280 #### [facility] [address] [place], [place], [id number] PAPSMR Comment Normal . [facility] Comment on above: Order Comment: Speci men Comment: [id number] Specimen Comment: No. of containers..01 ThinPrep Vial Result Comment: The Pap smear is a screening test designed to aid in the detection of premalignant and malignant conditions of the uterine cervix. It is not a diagnostic procedure and should not be used as the sole means of detecting cervical cancer. Both false-positive and false-negative reports do occur. Performed By: #### L 7000.1800, M100.2200, L7400.0280 #### [facility] [address] [place], [address] PERFORM Comment Normal . [facility] Comment on above: Order Comment: Speci men Comment: [id number] Specimen Comment: No. of containers..01 ThinPrep Vial Result Comment: Melany Mendoza, A P Manager (ASCP) Performed By: #### L 7000.1800, M100.2200, L7400.0280 #### [facility] [address] [place], [address] Urine Cultureon 01-10-2025 [facility] Urine Culture Urine Culture Mixed Gram Positive Organisms [place] Count 25,000-50,000 MIXC Mixed contaminants. Submit a new specimen if indicated. Normal [facility] Comment on above: Performed By: #### L 7000.1800, M100.2200, L7400.0280 #### [facility] [address] [place], [address] Chlamydia/GC MACK aptimaon CHLAMY,NUC ACID Negative Normal Negative [facility] Comment on above: Performed By: #### L 7000.1800, M100.2200, L7400.0280 #### [facility] [address] [place], [address] GC BY NUC ACID Negative Normal Negative [facility] Comment on above: Result Comment: Perf ormed at: =G - [facility] [address] [place] [id number] Tubing Drier: Valencia Vásquez MD, Phone: [phone] Performed By: #### L 7000.1800, M100.2207, L7400.0280 #### [facility] [address] [place], [address] Cervical or vaginal specimen microscopic examination by liquid based cytology (reportOrdered By: Aileen Jacinto on 01-06-2025 Cytology report Cyto stain.thin prep Doc (Cvx/Vag) Comment . [facility] Comment on above: Criteria not met, HP V Genotype not performed.Performed at: [facility] Cyto [address] [place], [place] [id number] Director: Danny Cabrera MD, Phone: [phone] at: [address] [id number] Director: Valencia Vásquez MD, Phone: [phone] at: [facility] [address] [id number] Director: Valencia Vásquez MD, Phone: [phone] Cervical or vagninal specime n microscopic examination by cytology stain (reported asOrdered By: Aileen Jacinto on 01-06-2025 Cytology report Cyto stain Doc (Cvx/Vag) Comment . [facility] Comment on above: The Pap smear is a s creening test designed to aid in thedetection of premalignant and malignant conditions of theuterine cervix. It is not a diagnostic procedure andshould not be used as the sole means of detecting cervicalcancer. Both false-positive and false-negative reports dooccur. Chlamydia trachomatis rRNA d etection by probe and target amplification methodOrdered By: Aileen Jacinto on 01-06-2025 C. trachomatis rRNA MACK+probe Ql (Unsp spec) Negative Negative [facility] Detection in cervical specim en of any of human papilloma virus (HPV) 16, 18, 31, 33,Ordered By: Aileen Jacinto on 01-06-2025 HPV 16+18+31+33+35+39+45+51+5 2+56+58+59+66+68 DNA Probe+sig amp Ql (Cvx) Negative Negative [facility] Comment on above: This nucleic acid am plification test detects fourteen high-risk HPV types (16,18,31,33,35,39,45,51,52,56,58,59,66,68)without differentiation. Laboratory - CytologyOrdered By: Aileen Jacinto on 01-06-2025 A P Manager Cyto stain Nom (Cvx/Vag) [ID] Comment . [facility] Comment on above: Betty Mendoza, Cyto logist (ASCP) Laboratory - Miscellaneous t estsOrdered By: Aileen Jacinto on 01-06-2025 Service comment (Unsp spec) [Interp] . . [facility] Neisseria gonorrhoeae nuclei c acid detection by amplified probe techniqueOrdered By: Aileen Jacinto on 01-06-2025 N. gonorrhoeae DNA MACK+probe Ql (Unsp spec) Negative Negative [facility] Comment on above: Performed at: =[address] [id number] Director: Valencia Vásquez MD, Phone: [phone] No Panel InformationOrdered By: Aileen Jacinto on 01-06-2025 Pap Smear Specimen Adequacy Comment . [facility] Comment on above: Satisfactory for hardy luation. Endocervical and/or squamous metaplasticcells (endocervical component) are present. Manager Decision Support Office Visit Reporton 01-06-2025 Manager Decision Support Office Visit Report [facility] [address], [address] [place] [address] OFFICE VISIT Date of Service: 01/06/25 MR#: [id number] Acct: [id number] Name: LOLA PEREZ Rep #: [id number] : 1995 Provider: PAULINO Kaplan ams Age/Sex: 29/F Location: [facility] Status: Signed Intake Vital Signs 12/13/24 14:03 01/06/25 12:59 Height 5 ft 2 in 5 ft 2 in Weight: 121 lb 2 oz BMI 22.1 BP 106/69 Intake Visit Reasons: *NEW* NOB LMP 5, DONALD 08/09 Chief Complaint: New OB Motion Picture Narrator Required: No Is patient in pain?: No Allergies shrimp Allergy (Mild, Verified 07/11/25 13:04) Rash Medications ???Medication ???Instructions ???Recorded ???Confirmed [...] 1 current occupational status: employed current occupation: [employer] 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) [...] physical activity do you participate in: none chung/mormon: None seatbelt use: always do you feel safe at home: Yes 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 Date Name GA/Weeks Outcome Route Bth Weight Infant Gen Labor Lgth Anesthesia Del Locatn Provider FOB 10/03/20 Andrea Suarez 40 live - full term 7lbs 5oz Male epidur gayathri Mendez HPI *NEW* NOB LMP 11/02, DONALD 08/09 Details: LOLA PEREZ is a 29 year old who [...] list details Initial Weight: 121 lb Date -???-???-???-???-?? ?-???-???-???-???-? ??-???-???- EGA Weight BP Urine Prot -???-???-???-???-?? ?-???-???-???-???-? ??-???-???- Glucose FHR FuHt Pres Dilation -???-???-???-???-?? ?-???-???-???-???-? ??-???-???- Effaced St Visit Note 01/06/25 -???-???-???-???-?? ?-???-???-???-???-? ??-???-???- 9w 2d 121 lb 2 oz (+2 oz) 106/69 -???-???-???-???-?? ?-???-???-???-???-? ??-???-???- 158 -???-???-???-???-?? ?-???-???-???-???-? ??-???-???- KW- CRL 2.96 cm cons with date. [...] Other, Othe (more content not included)... Normal [facility] Urine cultureOrdered By: Jae Jacinto on 01-06-2025 Bacteria identified Cx Nom (U) Positive Abnormal [facility] - Chemistry and C hemistry - challengeOrdered By: Patria Dooley on 12-13-2024 HCG ( test) Ql (U) Positive [facility] Manager Decision Support Office Visit Reporton 12-13-2024 Manager Decision Support Office Visit Report [facility] [address], [address] [place] [address] OFFICE VISIT Date of Service: 12/13/24 MR#: [id number] Acct: [id number] Name: LOLA PEREZ Rep #: [id number] : 1995 Provider: VINEET Jarquin Age/Sex: 29/F Location: [facility] Status: Signed Intake Vital Signs 12/13/24 14:03 Height 5 ft 2 in Weight: 121 lb 2 oz BMI 22.1 BP 92/59 L Intake Visit Reasons: Confirm , est care Chief Complaint: Urine preg.- confirm preg. 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 RTO as scheduled for New OB Orders: Orders POC Urine Today N91.2 - Amenorrhea, unspecified 12/13/24 1430 Date Patria Dooley NP-C Cosigner Signature: Date (if applicable) CC: Normal [facility] Basic Metabolic Panelon 04-0 Calcium [Mass/Vol] 8.4 mg/dL Normal 8.4-10.4 [facility] Comment on above: Performed By: #### Misa GRUBBS #### [facility] [address] [place] [address] [facility] #### ABSGL #### [facility] [address] [place] [address] Glucose [Mass/Vol] 104 mg/dL High 70-100 [facility] Comment on above: Performed By: #### Misa GRUBBS #### [facility] [address] [place] [address] [facility] #### ABSGL #### [facility] [address] [place] [address] Anion gap [Moles/Vol] 3 mmol/L Normal 3-13 [facility] Comment on above: Performed By: #### Misa GRUBBS #### [facility] [address] [place] [address] [facility] #### ABSGL #### [facility] [address] [place] [address] CO2 [Moles/Vol] 21 mmol/L Low 22-30 [facility] Comment on above: Performed By: #### Misa GRUBBS #### [facility] [address] [place] [address] [facility] #### ABSGL #### [facility] [address] [place] [address] Creatinine [Mass/Vol] 0.60 mg/dL Normal 0.52-1.25 [facility] Comment on above: Performed By: #### Misa GRUBBS #### [facility] [address] [place] [address] [facility] #### ABSGL #### [facility] [address] [place] [address] GFR/1.73 sq M predicted among blacks MDRD (S/P/Bld) [Vol rate/Area] mL/min/{1.73_m2} Normal >60 [facility] Comment on above: Performed By: #### A HUMERA #### [facility] [address] [place] [address] [facility] #### ABSGL #### [facility] [address] [place] [address] GFR/1.73 sq M predicted among non-blacks MDRD (S/P/Bld) [Vol rate/Area] mL/min/{1.73_m2} Normal >60 [facility] Comment on above: Result Comment: KDIG O [...] secretion. Performed By: #### A HUMERA #### [facility] [address] [place] [address] [facility] #### ABSGL #### [facility] [address] [place] [address] Urea nitrogen [Mass/Vol] 9 mg/dL Normal 7-20 [facility] Comment on above: Performed By: #### A HUMERA #### [facility] [address] [place] [address] [facility] #### ABSGL #### [facility] [address] [place] [address] Chloride [Moles/Vol] 109 mmol/L High 98-107 [facility] Comment on above: Performed By: #### A HUMERA #### [facility] [address] [place] [address] [facility] #### ABSGL #### [facility] [address] [place] [address] Potassium [Moles/Vol] 3.6 mmol/L Normal 3.5-5.1 [facility] Comment on above: Performed By: #### A HUMERA #### [facility] [address] [place] [address] [facility] #### ABSGL #### [facility] [address] [place] [address] Sodium [Moles/Vol] 133 mmol/L Low 135-145 [facility] Comment on above: Performed By: #### A HUMERA #### [facility] [address] [place] [address] [facility] #### ABSGL #### [facility] [address] [place] [address] [facility] 10-05-2020 Hematocrit (Bld) [Volume fraction] 25.3 % Low 35.0 - 47.0 % [facility] Work Phone: Hemoglobin.gastrointestin al spec 1 Ql (Stl) 8.5 g/dL Low 11.7 - 16.0 g/dL [facility] Work Phone: [phone] Interpretation and review of laboratory results Abnormal [facility] Work Phone: [phone] MCH (RBC) [Entitic mass] 31.7 pg 26.0 - 34.0 pg [facility] Work Phone: [phone] MCHC (RBC) [Mass/Vol] 33.6 % 32.0 - 36.0 % [facility] Work Phone: [phone] MCV (RBC) [Entitic vol] 94.4 fL 79.0 - 98.0 fL [facility] Work Phone: [phone] Platelet distribution width (Bld) [Ratio] 14.0 % 11.5 - 14.5 % [employer] Work Phone: [phone] Platelet mean volume (Bld) [Entitic vol] 7.8 fL 7.4 - 10.4 fL [employer] Work Phone: [phone] Platelets (Bld) [#/Vol] 140 10*3/uL 140 - 440 10*3/uL [employer] Work Phone: [phone] RBC (Bld) [#/Vol] 2.68 10*6/uL Low 3.80 - 5.2 0 10*6/uL [employer] Work Phone: [phone] WBC (Bld) [#/Vol] 20.3 10*3/uL High 3.6 - 10.7 10*3/uL [employer] Work Phone: [phone] Performed by [facility], [address] [place] [address] [employer] Work Phone: [phone] Hemogramon 10-05-2020 Erythrocyte distribution width (RBC) [Ratio] 14.0 % Normal 11.5-14.5 [facility] Comment on above: Performed By: #### A HUMERA #### [facility] [employer] [facility] [address] [place], [place] [address] [place] [address] #### ABSGL #### [facility] [employer] [facility] [address] [place] [address] Hematocrit (Bld) [Volume fraction] 25.3 % Low 35.0-47.0 [facility] Comment on above: Performed By: #### A HUMERA #### [facility] [address] [place] [address] [facility] #### ABSGL #### [facility] [address] [place] [address] Hemoglobin (Bld) [Mass/Vol] 8.5 g/dL Low 11.7-16.0 [facility] Comment on above: Performed By: #### A HUMERA #### [facility] [employer] [facility] [address] [place] [address] [facility] #### ABSGL #### [facility] [employer] [facility] [address] [place] [address] MCH (RBC) [Entitic mass] 31.7 pg Normal 26.0-34.0 [facility] Comment on above: Performed By: #### Misa GRUBBS #### [facility] [address] [place] [address] [facility] #### ABSGL #### [facility] [address] [place] [address] MCHC (RBC) [Mass/Vol] 33.6 % Normal 32.0-36.0 [facility] Comment on above: Performed By: #### A HUMERA #### [facility] [address] [place] [address] [facility] #### ABSGL #### [facility] [address] [place] [address] MCV (RBC) [Entitic vol] 94.4 fL Normal 79.0-98.0 [facility] Comment on above: Performed By: #### Misa GRUBBS #### [facility] [address] [place], [place] [address] [place] [address] #### ABSGL #### [facility] [address] [place] [address] Platelet mean volume (Bld) [Entitic vol] 7.8 fL Normal 7.4-10.4 [facility] Comment on above: Performed By: #### Misa GRUBBS #### [facility] [address] [place] [address] [facility] #### ABSGL #### [facility] [address] [place] [address] Platelets (Bld) [#/Vol] 140 10*3/uL Normal 140-440 [facility] Comment on above: Performed By: #### Misa GRUBBS #### [facility] [address] [place] [address] [facility] #### ABSGL #### [facility] [address] [place] [address] RBC (Bld) [#/Vol] 2.68 10*6/uL Low 3.80-5.20 [facility] Comment on above: Performed By: #### A HUMERA #### [facility] [address] [place], [place] [address] [place] [address] #### ABSGL #### [facility] [address] [place] [address] WBC (Bld) [#/Vol] 20.3 10*3/uL High 3.6-10.7 [facility] Comment on above: Performed By: #### A HUMERA #### [facility] [address] [place], [place] [address] [place] [address] #### ABSGL #### [facility] [address] [place] [address] Hemogram w/ Autodiffon 10-05 Abs Baso Cnt 0.0 10*3/uL Normal 0.0-0.2 [facility] Comment on above: Performed By: #### A HUMERA #### [facility] [address] [place], [place] [address] [place] [address] #### ABSGL #### [facility] [address] [place] [address] Abs Neutrophile Cnt 14.7 10*3/uL High 1.8-7.0 [facility] Comment on above: Performed By: #### Misa GRUBBS #### [facility] [address] [place], [place] [address] [place] [address] #### ABSGL #### [facility] [address] [place] [address] Basophils/100 WBC (Bld) 0.2 % Normal 0.0-2.0 [facility] Comment on above: Performed By: #### A HUMERA #### [facility] [address] [place], [place] [address] [place] [address] #### ABSGL #### [facility] [address] [place] [address] Eosinophils (Bld) [#/Vol] 0.0 10*3/uL Normal 0.0-0.5 [facility] Comment on above: Performed By: #### A HUMERA #### [facility] [address] [place] [address] [facility] #### ABSGL #### [facility] [address] [place] [address] Eosinophils/100 WBC (Bld) 0.2 % Low 1.0-6.0 [facility] Comment on above: Performed By: #### A HUMERA #### [facility] [address] [place] [address] [facility] #### ABSGL #### [facility] [address] [place] [address] Erythrocyte distribution width (RBC) [Ratio] 14.0 % Normal 11.5-14.5 [facility] Comment on above: Performed By: #### A HUMERA #### [facility] [address] [place] [address] [facility] #### ABSGL #### [facility] [address] [place] [address] Granulocytes/100 WBC (Bld) 89.5 % High 40.0-80.0 [facility] Comment on above: Performed By: #### A HUMERA #### [facility] [address] [place] [address] [facility] #### ABSGL #### [facility] [address] [place] [address] Hematocrit (Bld) [Volume fraction] 24.3 % Low 35.0-47.0 [facility] Comment on above: Performed By: #### A HUMERA #### [facility] [address] [place] [address] [facility] #### ABSGL #### [facility] [address] [place] [address] Hemoglobin (Bld) [Mass/Vol] 8.4 g/dL Low 11.7-16.0 [facility] Comment on above: Performed By: #### A HUMERA #### [facility] [address] [place] [address] [facility] #### ABSGL #### [facility] [address] [place] [address] Lymphocytes (Bld) [#/Vol] 0.6 10*3/uL Low 1.0-4.3 [facility] Comment on above: Performed By: #### A HUMERA #### [facility] [address] [place], [place] [address] [place] [address] #### ABSGL #### [facility] [address] [place] [address] Lymphocytes/100 WBC (Bld) 3.9 % Low 20.0-40.0 [facility] Comment on above: Performed By: #### A HUMERA #### [facility] [address] [place], [place] [address] [place] [address] #### ABSGL #### [facility] [address] [place] [address] MCH (RBC) [Entitic mass] 32.1 pg Normal 26.0-34.0 [facility] Comment on above: Performed By: #### A HUMERA #### [facility] [address] [place], [place] [address] [place] [address] #### ABSGL #### [facility] [address] [place] [address] MCHC (RBC) [Mass/Vol] 34.5 % Normal 32.0-36.0 [facility] Comment on above: Performed By: #### A HUMERA #### [facility] [address] [place], [place] [address] [place] [address] #### ABSGL #### [facility] [address] [place] [address] MCV (RBC) [Entitic vol] 93.0 fL Normal 79.0-98.0 [facility] Comment on above: Performed By: #### A HUMERA #### [facility] [address] [place] [address] [facility] #### ABSGL #### [facility] [address] [place] [address] Monocytes (Bld) [#/Vol] 1.0 10*3/uL High 0.0-0.8 [facility] Comment on above: Performed By: #### Misa GRUBBS #### [facility] [address] [place] [address] [facility] #### ABSGL #### [facility] [address] [place] [address] Monocytes/100 WBC (Bld) 6.2 % Normal 2.0-10.0 [facility] Comment on above: Performed By: #### A HUMERA #### [facility] [address] [place] [address] [facility] #### ABSGL #### [facility] [address] [place] [address] Platelet mean volume (Bld) [Entitic vol] 8.0 fL Normal 7.4-10.4 [facility] Comment on above: Performed By: #### Misa GRUBBS #### [facility] [address] [place] [address] [facility] #### ABSGL #### [facility] [address] [place] [address] Platelets (Bld) [#/Vol] 142 10*3/uL Normal 140-440 [facility] Comment on above: Performed By: #### Misa GRUBBS #### [facility] [address] [place] [address] [facility] #### ABSGL #### [facility] [address] [place] [address] RBC (Bld) [#/Vol] 2.61 10*6/uL Low 3.80-5.20 [facility] Comment on above: Performed By: #### Misa GRUBBS #### [facility] [address] [place] [address] [facility] #### ABSGL #### [facility] [address] [place] [address] WBC (Bld) [#/Vol] 16.4 10*3/uL High 3.6-10.7 [facility] Comment on above: Performed By: #### A HUMERA #### [facility] [address] [place], [place] [address] [place] [address] #### ABSGL #### [facility] [address] [place] [address] Lactic Acidon 10-05-2020 Lactate [Moles/Vol] 1.6 mmol/L Normal 0.7-2.0 [facility] Comment on above: Performed By: #### A HUMERA #### [facility] [address] [place], [place] [address] [place] [address] #### ABSGL #### [facility] [address] [place] [address] BASIC METABOLIC PANELon Anion gap [Moles/Vol] 3 mmol/L 3 - 13 mmol/L [facility] Work Phone: Calcium [Mass/Vol] 8.4 mg/dL 8.4 - 10. 4 mg/dL [facility] Work Phone: Chloride [Moles/Vol] 109 mmol/L High 98 - 10 7 mmol/L [facility] Work Phone: CO2 [Moles/Vol] 21 mmol/L Low 22 - 30 mmol/L [facility] Work Phone: Creatinine [Mass/Vol] 0.6 mg/dL 0.52 - 1.25 mg/dL [facility] Work Phone: EGFR IF NonAfrican Afghan >90.0 >60 mL/min [facility] Work Phone: Comment on above: KDIGO guidelines [...] [Mass/Vol] 9 mg/dL 7 - 20 mg/dL [facility] Work Phone: CBC WITH AUTO DIFFERENTIALon 10-04-2020 Absolute Baso # 0.0 10*3/uL 0.0 - 0.2 10*3/uL [facility] Work Phone: Absolute Neut # 14.7 10*3/uL High 1.8 - 7.0 10*3/uL [facility] Work Phone: Basophils/100 WBC (Bld) 0.2 % 0.0 - 2.0 % [facility] Work Phone: Eosinophils (Bld) [#/Vol] 0.0 10*3/uL 0. 0 - 0.5 10*3/uL [facility] Work Phone: 22 Eosinophils/100 WBC (Bld) 0.2 % Low 1.0 - 6.0 % [facility] Work Phone: Granulocytes/100 WBC (Bld) 89.5 % High 40.0 - 80.0 % [facility] Work Phone: Hematocrit (Bld) [Volume fraction] 24.3 % Low 35.0 - 47.0 % [facility] Work Phone: 22 Hemoglobin.gastrointestin al spec 1 Ql (Stl) 8.4 g/dL Low 11.7 - 16.0 g/dL [facility] Work Phone: 1 22 Lymphocytes (Bld) [#/Vol] 0.6 10*3/uL Low 1. 0 - 4.3 10*3/uL [facility] Work Phone: 1) 22 Lymphocytes/100 WBC (Bld) 3.9 % Low 20.0 - 40. 0 % [facility] Work Phone: 1 MCH (RBC) [Entitic mass] 32.1 pg 26.0 - 34.0 pg [facility] Work Phone: MCHC (RBC) [Mass/Vol] 34.5 % 32.0 - 36.0 % [facility] Work Phone: MCV (RBC) [Entitic vol] 93.0 fL 79.0 - 98.0 fL [facility] Work Phone: Monocytes (Bld) [#/Vol] 1.0 10*3/uL High 0.0 - 0.8 10*3/uL [facility] Work Phone: ) 22 Monocytes/100 WBC (Bld) 6.2 % 2.0 - 10.0 % [facility] Work Phone: Platelet distribution width (Bld) [Ratio] 14.0 % 11.5 - 14.5 % [facility] Work Phone: Platelet mean volume (Bld) [Entitic vol] 8.0 fL 7.4 - 10.4 fL [facility] Work Phone: Platelets (Bld) [#/Vol] 142 10*3/uL 140 - 440 10*3/uL [facility] Work Phone: 22 RBC (Bld) [#/Vol] 2.61 10*6/uL Low 3.80 - 5.2 0 10*6/uL [facility] Work Phone: ) 22 WBC (Bld) [#/Vol] 16.4 10*3/uL High 3.6 - 10.7 10*3/uL [facility] Work Phone: 22 Lactic Acid, Plasmaon 04-08- 2021 Lactate [Moles/Vol] 1.6 mmol/L 0.7 - 2. 0 mmol/L [facility] Work Phone: Test Performed by [facility], [address] [place], [place] [id number] [place] [address] Work Phone: [phone] Otheron 10-04-2020 Interpretation and review of laboratory results Abnormal [facility] Work Phone: Test Performed by [facility], [address] [place], [address] Work Phone: Hemogramon 10-03-2020 Erythrocyte distribution width (RBC) [Ratio] 14.0 % Normal 11.5-14.5 [facility] Comment on above: Performed By: #### A HUMERA #### [facility] [address] [place], [place] [address] [place] [address] #### ABSGL #### [facility] [address] [place] [address] Hematocrit (Bld) [Volume fraction] 36.9 % Normal 35.0-47.0 [facility] Comment on above: Performed By: #### A HUMERA #### [facility] [address] [place] [address] [facility] #### ABSGL #### [facility] [address] [place] [address] Hemoglobin (Bld) [Mass/Vol] 12.8 g/dL Normal 11.7-16.0 [facility] Comment on above: Performed By: #### A HUMERA #### [facility] [address] [place] [address] [facility] #### ABSGL #### [facility] [address] [place] [address] MCH (RBC) [Entitic mass] 31.8 pg Normal 26.0-34.0 [facility] Comment on above: Performed By: #### A HUMERA #### [facility] [address] [place] [address] [facility] #### ABSGL #### [facility] [address] [place] [address] MCHC (RBC) [Mass/Vol] 34.6 % Normal 32.0-36.0 [facility] Comment on above: Performed By: #### A HUMERA #### [facility] [address] [place] [address] [facility] #### ABSGL #### [facility] [address] [place] [address] MCV (RBC) [Entitic vol] 91.8 fL Normal 79.0-98.0 [facility] Comment on above: Performed By: #### A HUMERA #### [facility] [address] [place] [address] [facility] #### ABSGL #### [facility] [address] [place] [address] Platelet mean volume (Bld) [Entitic vol] 8.3 fL Normal 7.4-10.4 [facility] Comment on above: Performed By: #### A HUMERA #### [facility] [address] [place] [address] [facility] #### ABSGL #### [facility] [address] [place] [address] Platelets (Bld) [#/Vol] 219 10*3/uL Normal 140-440 [facility] Comment on above: Performed By: #### Misa GRUBBS #### [facility] [address] [place] [address] [facility] #### ABSGL #### [facility] [address] [place] [address] RBC (Bld) [#/Vol] 4.02 10*6/uL Normal 3.80-5.20 [facility] Comment on above: Performed By: #### A HUMERA #### [facility] [address] [place] [address] [facility] #### ABSGL #### [facility] [address] [place] [address] WBC (Bld) [#/Vol] 10.6 10*3/uL Normal 3.6-10.7 [facility] Comment on above: Performed By: #### A BORH #### [facility] [address] [place] [address] [facility] #### ABSGL #### [facility] [address] [place] [address] TS GELon 10-03-2020 TS GEL ABO Group: O Rh, Gel: POS Antibody Screen Gel: NEG Normal [facility] Comment on above: Performed By: #### T SGL ####[facility] mSnap [facility] CBCon 10-02-2020 Hematocrit (Bld) [Volume fraction] 36.9 % 35.0 - 47.0 % [facility] Phone: 22 Hemoglobin.gastrointestin al spec 1 Ql (Stl) 12.8 g/dL 11.7 - 16.0 g/dL [employer] Phone: MCH (RBC) [Entitic mass] 31.8 pg 26.0 - 34.0 pg [employer] Work Phone: MCHC (RBC) [Mass/Vol] 34.6 % 32.0 - 36.0 % [employer] Phone: MCV (RBC) [Entitic vol] 91.8 fL 79.0 - 98.0 fL [employer] Work Phone: Platelet distribution width (Bld) [Ratio] 14.0 % 11.5 - 14.5 % [employer] Phone: Platelet mean volume (Bld) [Entitic vol] 8.3 fL 7.4 - 10.4 fL [employer] Work Phone: ) 22 Platelets (Bld) [#/Vol] 219 10*3/uL 140 - 440 10*3/uL [employer] Work Phone: ) RBC (Bld) [#/Vol] 4.02 10*6/uL 3.80 - 5.2 0 10*6/uL [employer] Work Phone: 22 WBC (Bld) [#/Vol] 10.6 10*3/uL 3.6 - 10.7 10*3/uL [facility] Work Phone: Test Performed by [facility], [address] [place], [place] [address] [facility] Work Phone: TYPE AND SCREENon 10-02-2020 Sodium [Moles/Vol] O [facility] Work Phone: [phone] Sodium [Moles/Vol] Positive [facility] Work Phone: [phone] Sodium [Moles/Vol] Negative [facility] Work Phone: [phone] Test Performed by [facility], [address] [place], [place] [address] [facility] Work Phone: CBC Auto Differentialon 06-30 Absolute Baso # 0.2 10*3/uL 0 - 0.2 10*3/uL [place] Absolute Neut # 6.2 10*3/uL 1.8 - 7 10*3/uL [place] Basophils/100 WBC (Bld) 1.9 % 0 - 2 % [place] Eosinophils (Bld) [#/Vol] 0.1 10*3/uL 0 - 0.5 10*3/uL [place] Eosinophils/100 WBC (Bld) 1.5 % 1 - 6 % [place] Erythrocyte distribution width (RBC) [Ratio] 13.7 % 11.5 - 14.5 % [place] Granulocytes/100 WBC (Bld) 73.0 % 40 - 80 % [place] Hematocrit (Bld) [Volume fraction] 35.0 % 35 - 47 % [place] Hemoglobin (Bld) [Mass/Vol] 11.7 g/dL 11.7 - 16 g/dL [place] Interpretation and review of laboratory results Abnormal [place] Lymphocytes (Bld) [#/Vol] 1.3 10*3/uL 1 - 4.3 10*3/uL [place] Lymphocytes/100 WBC (Bld) 15.7 % Low 20 - 40 % [place] MCH (RBC) [Entitic mass] 31.1 pg 26 - 34 pg [place] MCHC (RBC) [Mass/Vol] 33.6 % 32 - 36 % [place] MCV (RBC) [Entitic vol] 92.6 fL 79 - 98 fL [place], [place] Monocytes (Bld) [#/Vol] 0.7 10*3/uL 0 - 0.8 10*3/uL [place] Monocytes/100 WBC (Bld) 7.9 % 2 - 10 % [place] Platelet mean volume (Bld) [Entitic vol] 7.8 fL 7.4 - 10.4 fL [place] Platelets (Bld) [#/Vol] 191 10*3/uL 140 - 440 10*3/uL [place] RBC (Bld) [#/Vol] 3.78 10*6/uL Low 3.8 - 5.2 10*6/uL [place] WBC (Bld) [#/Vol] 8.5 10*3/uL 3.6 - 10.7 10*3/uL [place] Test Performed by [facility], [address] , [address] Glucose Challenge,1Hron 06-30 Glucose [Mass/Vol] 90 mg/dL Normal <140 [facility] Comment on above: Performed By: #### A BORH #### [facility] [address] #### ABSGL #### [address] [place] [address] Glucose tolerance, 1 houron 07-20-2020 Glucose [Mass/Vol] 90 mg/dL <140 [place] Test Performed by [facility], [address] Hemogram w/ Autodiffon 07-20 Abs Baso Cnt 0.2 10*3/uL Normal 0.0-0.2 [facility] Comment on above: Performed By: #### A HUMERA #### [facility] [address] [place], [place] [address] [place] [address] #### ABSGL #### [facility] [address] [place] [address] Abs Neutrophile Cnt 6.2 10*3/uL Normal 1.8-7.0 [facility] Comment on above: Performed By: #### A HUMERA #### [facility] [address] [place], [place] [address] [place] [address] #### ABSGL #### [facility] [address] [place] [address] Basophils/100 WBC (Bld) 1.9 % Normal 0.0-2.0 [facility] Comment on above: Performed By: #### A HUMERA #### [facility] [address] [place], [place] [address] [place] [address] #### ABSGL #### [facility] [address] [place] [address] Eosinophils (Bld) [#/Vol] 0.1 10*3/uL Normal 0.0-0.5 [facility] Comment on above: Performed By: #### Misa GRUBBS #### [facility] [address] [place], [place] [address] [place] [address] #### ABSGL #### [facility] [address] [place] [address] Eosinophils/100 WBC (Bld) 1.5 % Normal 1.0-6.0 [facility] Comment on above: Performed By: #### A HUMERA #### [facility] [address] [place], [place] [address] [place] [address] #### ABSGL #### [facility] [address] [place] [address] Erythrocyte distribution width (RBC) [Ratio] 13.7 % Normal 11.5-14.5 [facility] Comment on above: Performed By: #### A HUMERA #### [facility] [address] [place] [address] [facility] #### ABSGL #### [facility] [address] [place] [address] Granulocytes/100 WBC (Bld) 73.0 % Normal 40.0-80.0 [facility] Comment on above: Performed By: #### A HUMERA #### [facility] [address] [place] [address] [facility] #### ABSGL #### [facility] [address] [place] [address] Hematocrit (Bld) [Volume fraction] 35.0 % Normal 35.0-47.0 [facility] Comment on above: Performed By: #### A HUMERA #### [facility] [address] [place] [address] [facility] #### ABSGL #### [facility] [address] [place] [address] Hemoglobin (Bld) [Mass/Vol] 11.7 g/dL Normal 11.7-16.0 [facility] Comment on above: Performed By: #### A HUMERA #### [facility] [address] [place] [address] [facility] #### ABSGL #### [facility] [address] [place] [address] Lymphocytes (Bld) [#/Vol] 1.3 10*3/uL Normal 1.0-4.3 [facility] Comment on above: Performed By: #### A HUMERA #### [facility] [address] [place] [address] [facility] #### ABSGL #### [facility] [address] [place] [address] Lymphocytes/100 WBC (Bld) 15.7 % Low 20.0-40.0 [facility] Comment on above: Performed By: #### A HUMERA #### [facility] [address] [place] [address] [facility] #### ABSGL #### [facility] [address] [place] [address] MCH (RBC) [Entitic mass] 31.1 pg Normal 26.0-34.0 [facility] Comment on above: Performed By: #### A HUMERA #### [facility] [address] [place], [place] [address] [place] [address] #### ABSGL #### [facility] [address] [place] [address] MCHC (RBC) [Mass/Vol] 33.6 % Normal 32.0-36.0 [facility] Comment on above: Performed By: #### A HUMERA #### [facility] [address] [place], [place] [address] [place] [address] #### ABSGL #### [facility] [address] [place] [address] MCV (RBC) [Entitic vol] 92.6 fL Normal 79.0-98.0 [facility] Comment on above: Performed By: #### A HUMERA #### [facility] [address] #### ABSGL #### [facility] [address] [place] [address] Monocytes (Bld) [#/Vol] 0.7 10*3/uL Normal 0.0-0.8 [facility] Comment on above: Performed By: #### A HUMERA #### [facility] [address] [place], [place] [address] [place] [address] #### ABSGL #### [facility] [address] [place] [address] Monocytes/100 WBC (Bld) 7.9 % Normal 2.0-10.0 [facility] Comment on above: Performed By: #### A HUMERA #### [facility] [address] [place], [place] [address] [place] [address] #### ABSGL #### [facility] [address] [place] [address] Platelet mean volume (Bld) [Entitic vol] 7.8 fL Normal 7.4-10.4 [facility] Comment on above: Performed By: ###Zofia GRUBBS #### [facility] [address] [place] [address] [facility] #### ABSGL #### [facility] [address] [place] [address] Platelets (Bld) [#/Vol] 191 10*3/uL Normal 140-440 [facility] Comment on above: Performed By: #### Misa GRUBBS #### [facility] [address] [place] [address] [facility] #### ABSGL #### [facility] [address] [place] [address] RBC (Bld) [#/Vol] 3.78 10*6/uL Low 3.80-5.20 [facility] Comment on above: Performed By: ###Zofia GRUBBS #### [facility] [address] [place] [address] [facility] #### ABSGL #### [facility] [address] [place] [address] WBC (Bld) [#/Vol] 8.5 10*3/uL Normal 3.6-10.7 [facility] Comment on above: Performed By: ###Zofia GRUBBS #### [facility] [address] [place] [address] [facility] #### ABSGL #### [facility] [address] [place] [address] Hemoglobin Evaluationon 02-28 Erythrocyte Cnt 3.99 Mill/uL Normal 3.80-5.10 [facility] Comment on above: Performed By: #### H EPC, HBSAG, HIV4, RPR #### [facility] [address] [place] [address] #### HGBFO #### The performing lab is in the report. #### RUBG #### [facility] [address] [place] [address] #### HEMDF #### [facility] [address] [facility] [place] [address] Erythrocyte distribution width (RBC) [Ratio] 14.0 % Normal 11.0-15.0 [facility] Comment on above: Result Comment: Test Performed by Julianna Willis, [facility], [address] [place] [address] Joe Olivia M.D., Ph.D., Director of Laboratories , [facility] [id number] Performed By: #### H EPC, HBSAG, HIV4, RPR #### [place] [address] [place] [address] #### HGBFO #### The performing lab is in the report. #### RUBG #### [facility] [address] [place] [address] #### HEMDF #### [facility] [address] [facility] [place] [address] Hemoglobin A 97.0 % Normal >96.0 [facility] Comment on above: Performed By: #### H EPC, HBSAG, HIV4, RPR #### [address] [address] #### HGBFO #### The performing lab is in the report. #### RUBG #### [facility] [address] [place] [address] #### HEMDF #### [facility] [address] [facility] [place] [address] Hemoglobin A2 2.8 % Normal 1.8-3.5 [facility] Comment on above: Performed By: #### H EPC, HBSAG, HIV4, RPR #### [address] [address] #### HGBFO #### The performing lab is in the report. #### RUBG #### [facility] [address] [place] [address] #### HEMDF #### [facility] [address] [facility] [place] [address] Hemoglobin F 0.2 % Normal <2.0 [facility] Comment on above: Performed By: #### H EPC, HBSAG, HIV4, RPR #### [facility] [address] [place] #### HGBFO #### The performing lab is in the report. #### RUBG #### [facility] [address] [place] [address] #### HEMDF #### [facility] [address] [place] [address] Interpretation see below Normal [facility] Comment on above: Result Comment: NORM [...] and Hemoglobinopathy Comprehensive is available (Test code 50769). Test Performed by [facility], [facility], [address] [place] [address] Joe Olivia M.D., Ph.D., Director of Laboratories , [facility] [id number] Performed By: #### H EPC, HBSAG, HIV4, RPR #### [address] [address] [place], [place] #### HGBFO #### The performing lab is in the report. #### RUBG #### [facility] [address] [place] [address] #### HEMDF #### [facility] [address] [place] [address] MCH (RBC) [Entitic mass] 31.1 pg Normal 27.0-33.0 [facility] Comment on above: Performed By: #### H EPC, HBSAG, HIV4, RPR #### [facility] [address] [place], [place] #### HGBFO #### The performing lab is in the report. #### RUBG #### [facility] [address] [place] [address] #### HEMDF #### [facility] [address] [place] [address] MCV (RBC) [Entitic vol] 93.0 FL Normal 80.0-100.0 [facility] Comment on above: Performed By: #### H EPC, HBSAG, HIV4, RPR #### [facility] [address] [place] [address] #### HGBFO #### The performing lab is in the report. #### RUBG #### [facility] [address] [place] [address] #### HEMDF #### [facility] [address] [place] [address] ABO Rh Blood Typeon 03-16-20 20 ABO and Rh group Nom (Bld) ABO Group: O Rh, Gel: POS Normal [facility] Comment on above: Performed By: #### A HUMERA #### [facility] [address] #### ABSGL #### [facility] [address] [place] [address] Antibody Screen Gelon 2019 Antibody Screen Gel Antibody Screen Gel: NEG Normal [facility] Comment on above: Performed By: #### A HUMERA #### [facility] [address] #### ABSGL #### [facility] [address] [place] [address] HIV 1,2 Ab; p24 Agon 020 HIV 1,2 Ab; p24 Ag NONREACTIVE Normal Nonreactive [facility] Comment on above: Result Comment: Resu lts [...] #### H EPC, HBSAG, HIV4, RPR #### [address] #### HGBFO #### The performing lab is in the report. #### RUBG #### [place] [address] [place] [address] #### HEMDF #### [facility] [address] [place] [address] Hep B Surface Agon 0 Hep B Surface Ag NOT DETECTED Normal Not-Detected [facility] Comment on above: Performed By: #### H EPC, HBSAG, HIV4, RPR #### [address] #### HGBFO #### The performing lab is in the report. #### RUBG #### [place] [address] [place] [address] #### HEMDF #### [address] [place] [address] Hep C Antibodyon 03-16-2020 Hep C Antibody NOT DETECTED Normal Not-Detected [facility] Comment on above: Result Comment: Jessica ents with DETECTED Hepatitis C Ab results should have a new specimen submitted for supplemental testing with a Hepatitis C Quantitative RNA assay (viral load), if clinically indicated. Performed By: #### H EPC, HBSAG, HIV4, RPR #### [address] #### HGBFO #### The performing lab is in the report. #### RUBG #### [place] [address] [place] [address] #### HEMDF #### [address] [place] [address] RPR, Qualon 03-16-2020 RPR, Qual NONREACTIVE Normal Non-Reactive [facility] Comment on above: Performed By: #### H EPC, HBSAG, HIV4, RPR #### [address] [address] #### HGBFO #### The performing lab is in the report. #### RUBG #### [facility] [address] [place] [address] #### HEMDF #### [facility] [address] [place] [address] ABO/RHon 03-15-2020 Sodium [Moles/Vol] O [place] Sodium [Moles/Vol] Positive [place] ANTIBODY SCREENon 03-15-2020 Sodium [Moles/Vol] Negative [place], [place] CBC Auto Differentialon 02-27 Absolute Baso # 0.0 10*3/uL 0 - 0.2 10*3/uL [place] Absolute Neut # 4.1 10*3/uL 1.8 - 7 10*3/uL [place] Basophils/100 WBC (Bld) 0.5 % 0 - 2 % [place] Eosinophils (Bld) [#/Vol] 0.1 10*3/uL 0 - 0.5 10*3/uL [place] Eosinophils/100 WBC (Bld) 1.0 % 1 - 6 % [place] Erythrocyte distribution width (RBC) [Ratio] 13.5 % 11.5 - 14.5 % [place] Granulocytes/100 WBC (Bld) 66.5 % 40 - 80 % [place] Hematocrit (Bld) [Volume fraction] 36.1 % 35 - 47 % [place] Hemoglobin (Bld) [Mass/Vol] 12.5 g/dL 11.7 - 16 g/dL [place] Lymphocytes (Bld) [#/Vol] 1.5 10*3/uL 1 - 4.3 10*3/uL [place] Lymphocytes/100 WBC (Bld) 25.1 % 20 - 40 % [place] MCH (RBC) [Entitic mass] 31.1 pg 26 - 34 pg [place] MCHC (RBC) [Mass/Vol] 34.8 % 32 - 36 % [place] MCV (RBC) [Entitic vol] 89.4 fL 79 - 98 fL [place], [place] Monocytes (Bld) [#/Vol] 0.4 10*3/uL 0 - 0.8 10*3/uL [place] Monocytes/100 WBC (Bld) 6.9 % 2 - 10 % [place] Platelet mean volume (Bld) [Entitic vol] 8.2 fL 7.4 - 10.4 fL [place] Platelets (Bld) [#/Vol] 218 10*3/uL 140 - 440 10*3/uL [place] RBC (Bld) [#/Vol] 4.03 10*6/uL 3.8 - 5.2 10*6/uL [place] WBC (Bld) [#/Vol] 6.1 10*3/uL 3.6 - 10.7 10*3/uL [place] Test Performed by [facility], [address] Hemogram w/ Autodiffon 03-15 Abs Baso Cnt 0.0 10*3/uL Normal 0.0-0.2 [facility] Comment on above: Performed By: #### H EPC, HBSAG, HIV4, RPR #### [address] [address] #### HGBFO #### The performing lab is in the report. #### RUBG #### [facility] [address] [place] [address] #### HEMDF #### [facility] [address] [place] [address] Abs Neutrophile Cnt 4.1 10*3/uL Normal 1.8-7.0 [facility] Comment on above: Performed By: #### H EPC, HBSAG, HIV4, RPR #### [address] [address] #### HGBFO #### The performing lab is in the report. #### RUBG #### [facility] [address] [place] [address] #### HEMDF #### [facility] [address] [facility] [place] [address] Basophils/100 WBC (Bld) 0.5 % Normal 0.0-2.0 [facility] Comment on above: Performed By: #### H EPC, HBSAG, HIV4, RPR #### [address] [address] #### HGBFO #### The performing lab is in the report. #### RUBG #### [place] [address] [facility] [place] [address] #### HEMDF #### [facility] [address] [place] [address] Eosinophils (Bld) [#/Vol] 0.1 10*3/uL Normal 0.0-0.5 [facility] Comment on above: Performed By: #### H EPC, HBSAG, HIV4, RPR #### [address] [address] #### HGBFO #### The performing lab is in the report. #### RUBG #### [address] [place] [address] #### HEMDF #### [facility] [address] [place] [address] Eosinophils/100 WBC (Bld) 1.0 % Normal 1.0-6.0 [facility] Comment on above: Performed By: #### H EPC, HBSAG, HIV4, RPR #### [address] [address] #### HGBFO #### The performing lab is in the report. #### RUBG #### [place] [address] [facility] [place] [address] #### HEMDF #### [facility] [address] [place] [address] Erythrocyte distribution width (RBC) [Ratio] 13.5 % Normal 11.5-14.5 [facility] Comment on above: Performed By: #### H EPC, HBSAG, HIV4, RPR #### [address] #### HGBFO #### The performing lab is in the report. #### RUBG #### [facility] [address] [place] [address] #### HEMDF #### [facility] [address] [place] [address] Granulocytes/100 WBC (Bld) 66.5 % Normal 40.0-80.0 [facility] Comment on above: Performed By: #### H EPC, HBSAG, HIV4, RPR #### [address] #### HGBFO #### The performing lab is in the report. #### RUBG #### [facility] [address] [place] [address] #### HEMDF #### [facility] [address] [place] [address] Hematocrit (Bld) [Volume fraction] 36.1 % Normal 35.0-47.0 [facility] Comment on above: Performed By: #### H EPC, HBSAG, HIV4, RPR #### [address] #### HGBFO #### The performing lab is in the report. #### RUBG #### [facility] [address] [place] [address] #### HEMDF #### [address] [address] Hemoglobin (Bld) [Mass/Vol] 12.5 g/dL Normal 11.7-16.0 [facility] Comment on above: Performed By: #### H EPC, HBSAG, HIV4, RPR #### [address] #### HGBFO #### The performing lab is in the report. #### RUBG #### [place] [address] [place] [address] #### HEMDF #### [facility] [address] [facility] [place] [address] Lymphocytes (Bld) [#/Vol] 1.5 10*3/uL Normal 1.0-4.3 [facility] Comment on above: Performed By: #### H EPC, HBSAG, HIV4, RPR #### [address] [address] #### HGBFO #### The performing lab is in the report. #### RUBG #### [address] [facility] [address] #### HEMDF #### [address] [address] Lymphocytes/100 WBC (Bld) 25.1 % Normal 20.0-40.0 [facility] Comment on above: Performed By: #### H EPC, HBSAG, HIV4, RPR #### [address] [address] #### HGBFO #### The performing lab is in the report. #### RUBG #### [address] [facility] [place] [address] #### HEMDF #### [address] [address] MCH (RBC) [Entitic mass] 31.1 pg Normal 26.0-34.0 [facility] Comment on above: Performed By: #### H EPC, HBSAG, HIV4, RPR #### [address] [address] #### HGBFO #### The performing lab is in the report. #### RUBG #### [address] [place] [address] #### HEMDF #### [address] [address] MCHC (RBC) [Mass/Vol] 34.8 % Normal 32.0-36.0 [facility] Comment on above: Performed By: #### H EPC, HBSAG, HIV4, RPR #### [address] #### HGBFO #### The performing lab is in the report. #### RUBG #### [address] [place] [address] #### HEMDF #### [address] [address] MCV (RBC) [Entitic vol] 89.4 fL Normal 79.0-98.0 [facility] Comment on above: Performed By: #### H EPC, HBSAG, HIV4, RPR #### [address] #### HGBFO #### The performing lab is in the report. #### RUBG #### [address] [place] #### HEMDF #### [address] [address] Monocytes (Bld) [#/Vol] 0.4 10*3/uL Normal 0.0-0.8 [facility] Comment on above: Performed By: #### H EPC, HBSAG, HIV4, RPR #### [address] #### HGBFO #### The performing lab is in the report. #### RUBG #### [address] [place] [address] #### HEMDF #### [address] [address] Monocytes/100 WBC (Bld) 6.9 % Normal 2.0-10.0 [facility] Comment on above: Performed By: #### H EPC, HBSAG, HIV4, RPR #### [address] #### HGBFO #### The performing lab is in the report. #### RUBG #### [address] [place] [address] #### HEMDF #### [facility] [address] [place] [address] Platelet mean volume (Bld) [Entitic vol] 8.2 fL Normal 7.4-10.4 [facility] Comment on above: Performed By: #### H EPC, HBSAG, HIV4, RPR #### [address] [address] #### HGBFO #### The performing lab is in the report. #### RUBG #### [place] [address] [place] [address] #### HEMDF #### [facility] [address] [address] Platelets (Bld) [#/Vol] 218 10*3/uL Normal 140-440 [facility] Comment on above: Performed By: #### H EPC, HBSAG, HIV4, RPR #### [address] #### HGBFO #### The performing lab is in the report. #### RUBG #### [place] [address] [place] [address] #### HEMDF #### [facility] [address] [address] RBC (Bld) [#/Vol] 4.03 10*6/uL Normal 3.80-5.20 [facility] Comment on above: Performed By: #### H EPC, HBSAG, HIV4, RPR #### [address] [address] #### HGBFO #### The performing lab is in the report. #### RUBG #### [place] [address] [place] [address] #### HEMDF #### [facility] [address] [place] [address] WBC (Bld) [#/Vol] 6.1 10*3/uL Normal 3.6-10.7 [facility] Comment on above: Performed By: #### H EPC, HBSAG, HIV4, RPR #### [facility] [address] [place] [address] #### HGBFO #### The performing lab is in the report. #### RUBG #### [facility] [address] [place] [address] #### HEMDF #### [facility] [address] [place] [address] Otheron 03-15-2020 Test Performed by [facility], [address] , [address] Rubellaon 03-15-2020 Rubella virus IgG Ql (S) 39.1 [place] Comment on above: Interpretation Table : <10.0 Antibody NOT Detected >=10.0 Antibody Detected Test Performed by [place] [address] Rubella Immune Statuson 02-27 Rubella Immune Status 39.1 [facility] Comment on above: Result Comment: Inte rpretation Table: <10.0 Antibody NOT Detected >=10.0 Antibody Detected Performed By: #### H EPC, HBSAG, HIV4, RPR #### [facility] [address] [place] [address] #### HGBFO #### The performing lab is in the report. #### RUBG #### [facility] [address] [place] [address] #### HEMDF #### [facility] [address] [place] [address] ABO Rh Blood Typeon 02-06-20 20 ABO and Rh group Nom (Bld) ABO Group: O Rh, Gel: POS Normal [facility] Comment on above: Performed By: #### A BORH #### [facility] [address] #### ABSGL #### [facility] [address] [place] [address] ABO/RHon 02-06-2020 Sodium [Moles/Vol] O [place] Sodium [Moles/Vol] Positive [place] ANTIBODY SCREENon 02-06-2020 Sodium [Moles/Vol] Negative [facility]IEL Antibody Screen Gelon 2019 Antibody Screen Gel Antibody Screen Gel: NEG Normal [facility] Comment on above: Performed By: #### A BORAngelina #### [facility] [address] #### ABSGL #### [facility] [address] [place] [address] HCG, Quantitative, on 02-06-2020 hCG Quant 8420 m[IU]/mL Abnormal [place] Comment on above: Females < 5 [...] Interpretation and review of laboratory results Abnormal [facility] Test Performed by [facility], [address] , [address] Otheron 02-06-2020 Test Performed by [facility], [address] , [address] hCG Quantitativeon 0 hCG Quantitative 8420 m[IU]/mL Abnormal [facility] Comment on above: Result Comment: Fema les [...] disease. Performed By: #### A HUMERA #### [address] [address] [facility] #### BARBARA #### [address] [place] [address] Vital Signs Date Time Vital Sign Value Performing Clinician Facility 03-10-2025 13:58-0400 Body height 157.48 cm Patria ARDONC Work Phone: [facility] 03-10-2025 13:58-0400 Body mass index (BMI) [Ratio] 22.7 kg/m2 Patria Dooley NP-Thomas Work Phone: [facility] 03-10-2025 13:58-0400 Body weight 56.35 kg Patria Dooley NP-Thomas Work Phone: [facility] 03-10-2025 13:58-0400 Diastolic blood pressure 67 mm[Hg] Patria Barkman RESEARCH GENETICIST-C Work Phone: [facility] 03-10-2025 13:58-0400 Systolic blood pressure 102 mm[Hg] Patria Manriquezman RESEARCH GENETICIST-C Work Phone: [facility] 02-06-2025 16:01-0400 Body height 157.48 cm Patria Manriquezman RESEARCH GENETICIST-C Work Phone: [facility] 02-06-2025 16:01-0400 Body mass index (BMI) [Ratio] 22.1 kg/m2 Patria Manriquezman RESEARCH GENETICIST-C Work Phone: [facility] 02-06-2025 16:01-0400 Body weight 54.88 kg Patria Manriquezman RESEARCH GENETICIST-C Work Phone: [facility] 02-06-2025 16:01-0400 Diastolic blood pressure 63 mm[Hg] Patria Manriquezman RESEARCH GENETICIST-C Work Phone: [facility] 02-06-2025 16:01-0400 Systolic blood pressure 96 mm[Hg] Patria Manriquezman RESEARCH GENETICIST-C Work Phone: [facility] 01-31-2025 20:02-0400 Body mass index (BMI) [Ratio] 22.1 kg/m2 Patria Manriquezman RESEARCH GENETICIST-C Work Phone: [facility] 01-31-2025 20:02-0400 Body temperature 97.5 [degF] Patria Manriquezman RESEARCH GENETICIST-C Work Phone: [facility] 01-31-2025 20:02-0400 Body weight 54.88 kg Patria Manriquezman RESEARCH GENETICIST-C Work Phone: [facility] 01-31-2025 20:02-0400 Diastolic blood pressure 62 mm[Hg] Patria Manriquezman RESEARCH GENETICIST-C Work Phone: [facility] 01-31-2025 20:02-0400 Heart rate 99 /min Patrianaila Manriquezman RESEARCH GENETICIST-C Work Phone: [facility] 01-31-2025 20:02-0400 Respiratory rate 18 /min Patria Manriquezman RESEARCH GENETICIST-C Work Phone: [facility] 01-31-2025 20:02-0400 SaO2% (BldA) [Mass fraction] 99 % Patria Manriquezman RESEARCH GENETICIST-C Work Phone: [facility] 01-31-2025 20:02-0400 Systolic blood pressure 99 mm[Hg] Patria Manriquezman RESEARCH GENETICIST-C Work Phone: [facility] 01-06-2025 12:59-0400 Body height 157.48 cm Patria Manriquezman RESEARCH GENETICIST-C Work Phone: [facility] 01-06-2025 12:59-0400 Body mass index (BMI) [Ratio] 22.1 kg/m2 Patrianaila Manriquezman RESEARCH GENETICIST-C Work Phone: [facility] 01-06-2025 12:59-0400 Body weight 54.94 kg Patrianaila Manriquezman RESEARCH GENETICIST-C Work Phone: [facility] 01-06-2025 12:59-0400 Diastolic blood pressure 69 mm[Hg] Patria Manriquezman RESEARCH GENETICIST-C Work Phone: [facility] 01-06-2025 12:59-0400 Systolic blood pressure 106 mm[Hg] Patria Manriquezman RESEARCH GENETICIST-C Work Phone: [facility] 12-13-2024 14:03-0400 Body height 157.48 cm Patria Manriquezman RESEARCH GENETICIST-C Work Phone: [facility] 12-13-2024 14:03-0400 Body mass index (BMI) [Ratio] 22.1 kg/m2 Patrianaila Manriquezman RESEARCH GENETICIST-C Work Phone: [facility] 12-13-2024 14:03-0400 Body weight 54.94 kg Patria Manriquezman RESEARCH GENETICIST-C Work Phone: [facility] 12-13-2024 14:03-0400 Diastolic blood pressure 59 mm[Hg] Patria Manriquezman RESEARCH GENETICIST-C Work Phone: [facility] 12-13-2024 14:03-0400 Systolic blood pressure 92 mm[Hg] Patria ARDONC Work Phone: [facility] 10-05-2020 08:01-0400 Body Temperature 98.29 [degF] Savanna BENITO Work Phone: 10-05-2020 08:01-0400 Pulse (Heart Rate) 109 /min Savanna BENITO Work Phone: 10-05-2020 08:01-0400 Pulse Oximetry 99 % Savanna BENITO Work Phone: 10-05-2020 08:01-0400 Respiratory Rate 16 /min Savanna BENITO Work Phone: 10-05-2020 07:56-0400 BP Diastolic 62 mm[Hg] Savanna BENITO Work Phone: 10-05-2020 07:56-0400 BP Systolic 97 mm[Hg] Savanna BENITO Work Phone: 10-02-2020 21:17-0400 BMI (Body Mass Index) 25.06 kg/m2 Savanna BENITO Work Phone: 10-02-2020 21:17-0400 Body weight 62.14 kg Savanna BENITO Work Phone: 10-02-2020 21:17-0400 Height 157.5 cm Savanna BENITO Work Phone: Encounters Encounter Date Encounter Type Care Provider Facility Start: 03-10-2025 ambulatory Dee Avelar lity:[facility] Start: 03-10-2025 End: 03-10-2025 ambulatory Patria ARDONC Work Phone: -[facility] Start: 03-10-2025 End: 03-10-2025 Patient encounter procedure Aileen Jacinto CNM -[facility] Work Phone: Start: 02-06-2025 End: 02-06-[address] Dee Miller MD -[facility] Work Phone: Start: 02-06-2025 End: 02-06-2025 [facility] Start: 01-16-2025 End: 01-16-2025 ambulatory Patria Dooley RESEARCH GENETICIST-C Work Phone: -Lab [facility] Start: 01-16-2025 End: 01-16-[address] Keyona Marshall DO -Lab [facility] Start: 01-16-2025 End: 01-16-2025 ambulatory Keyona Marshall Facility:[facility] Start: 01-06-2025 End: 01-06-2025 ambulatory Patria Dooley RESEARCH GENETICIST-C Work Phone: -Laboratory Specimen Start: 01-06-2025 End: 01-06-2025 Patient encounter procedure Aileen Jacinto CN -Laboratory Specimen Work Phone: Start: 01-06-2025 End: 01-06-2025 Patient encounter procedure Aileen NEWSOME -[facility] Work Phone: Start: 01-06-2025 End: 01-06-2025 ambulatory Aileen Jacinto -[facility] Start: 01-06-2025 End: 01-06-2025 ambulatory Aileen Jacinto Facility:[facility] Start: 12-13-2024 End: 12-13-2024 Patient encounter procedure Patria Dooley NP-C -[facility] Work Phone: Start: 12-13-2024 End: 12-13-2024 ambulatory Patria Dooley [facility] Work Phone: Start: 10-02-2020 End: 10-05-2020 Evaluation and management of inpatient Savanna Ramirez Work Phone: [facility] Start: 07-20-2020 End: 07-20-2020 Subsequent hospital visit by physician Chelsey Perez Work Phone: [facility] Laboratory Comment on above: care in sec ond trimester Start: 03-15-2020 End: 03-15-2020 Subsequent hospital visit by physician Chelsey Perez Work Phone: [facility] Comment on above: Supervision of high risk in first trimester Start: 02-06-2020 End: 02-06-2020 Subsequent hospital visit by physician Savanna Ramirez Work Phone: [facility] Comment on above: Missed menses Start: 11-29-2018 Manual pelvic examination Patria Dooley RESEARCH GENETICIST-C Work Phone: [facility] Procedures Date Procedure Procedure Detail Performing Clinician Start: 01-16-2025 Hepatitis C antibody measurement Patria Dooley RESEARCH GENETICIST-C Work Phone: Comment on above: Reactive: Presumptiv e evidence of antibodies to HCV. Follow CDC recommendations for supplemental testing.Non-Reactive: Antibodies to HCV were not detected; does not exclude the possibility of exposure to HCVReactive Results are presumptive evidence of antibodies to HCV. Follow CDC recommendations for supplemental testing.Order confirmation testing: HCV Quant by PCR testing - HCVPCR #[id number] Non Reactive: < 0.8 Equivocal: >/= 0.8 to < 1.0 Reactive: >/= 1.0The CDC requires that a reactive/equivocal HCV antibody result be sent out for confirmation. HCV Quant by PCR testing. Start: 01-16-2025 Procedure Patria Jarquin RESEARCH GENETICIST-C Work Phone: Start: 01-16-2025 Rubella IgG measurement Patria Dooley RESEARCH GENETICIST-C Work Phone: Comment on above: Antibody Result: Int erpretationNon-Reactive: Non- ImmuneReactive: ImmuneThe following results were obtained with the [employer] Rubella IgG assay. Results from assays of other manufacturers cannot be used interchangeably. Start: 01-16-2025 Serologic test for syphilis Patria Dooley RESEARCH GENETICIST-C Work Phone: Start: 01-06-2025 Liquid based cervica l cytology screening Patria Dooley RESEARCH GENETICIST-C Work Phone: Comment on above: NEGATIVE FOR INTRAEP ITHELIAL LESION OR MALIGNANCY. This liquid based Th inPrep(R) pap test was screened withthe use of an image guided system. Start: 01-06-2025 Urine culture Patria meyer NP-C Work Phone: Start: 10-05-2020 Blood count complete automated Flavio Bellamy Soniya Work Phone: Start: 10-04-2020 Assay of lactate Flavio Bellamy Soniya Work Phone: Start: 10-04-2020 Basic metabolic pane l calcium total Flavio Bellamy Soniya Work Phone: Start: 10-04-2020 Blood count complete auto&auto difrntl wbc Flavio Bellamy Huron Work Phone: Start: 10-02-2020 Blood count complete automated Keyona Reyeswin Work Phone: Start: 10-02-2020 Blood typing serologic abo Keyona Reyeswin Work Phone: Start: 07-20-2020 Blood count complete auto&auto difrntl wbc Chelsey Saffell Work Phone: Start: 07-20-[address] gtt 3 specimens Chelsey Saffell Work Phone: Start: 03-22-2020 Blood count hemoglobin Comment on above: Performed By: #### H EPC, HBSAG, HIV4, RPR #### [facility] [address] [place] [address] #### HGBFO #### The performing lab is in the report. #### RUBG #### [facility] [address] [place] [address] #### HEMDF #### [facility] [address] [address] Start: 03-15-2020 Antibody screen rbc each serum technique Chelsey Saffell Work Phone: Start: 03-15-2020 Blood count complete auto&auto difrntl wbc Chelsey Saffell Work Phone: Start: 03-15-2020 Blood typing serologic abo Chelsey Saffell Work Phone: Start: 03-15-2020 RUBELLA IMMUNE Chelsey Sa ffell Work Phone: Start: 02-06-2020 Antibody screen rbc each serum technique Savanna Ramirez Work Phone: Start: 02-06-2020 Blood typing serologic abo Savanna Ramirez Work Phone: Start: 02-06-2020 Gonadotropin chorion ic quantitative Savanna Ramirez Work Phone: Plan of Treatment Date Care Activity Detail Author Start: 07-27-2030 DTaP/Tdap/Td vaccine (2 - Td) DTaP/Tdap/Td vaccine (2 - Td) JIGNA Work Phone: Start: 01-06-2025 Liquid based cervica l cytology screening [facility] Start: 03-15-2023 Screening for malign ant neoplasm of cervix Cervical cancer screen [place] Start: 05-08-2021 End: 05-08-2021 Office Visit 05/08/2021 Office Visit Urology Yannick Shukla MD [address] [place] [phone] [facility] Start: 02-27-2021 Influenza vaccination Flu vacc ine (Season Ended) [facility] Work Phone: Start: 07-26-2020 End: 07-26-2020 Routine 07/26/2020 Routine Obstetrics and Gynecology Joy Wang MD [address] [place] [phone] [facility] Start: 04-13-2020 End: 04-13-2020 Routine 04/13/2020 Routine Obstetrics and Gynecology Christiane Mg MD [address] [place], [address] [place] [address] [facility] Start: 02-28-2020 Influenza vaccination Flu vaccine (# 1) [place] Start: 02-08-2020 End: 02-08-2020 Procedure visit [facility] Start: 2014 Screening for malign ant neoplasm of cervix Cervical cancer [place] Start: 2012 DTaP/Tdap/Td vaccine (1 - Tdap) DTaP/Tdap/Td vaccine (1 - Tdap) [place] Start: 2009 COVID-19 Vaccine (1) COVID-19 Vaccin e (1) [facility]IGNA Work Phone: Start: 2008 [facility] [place] [place] Start: 2004 HPV vaccine (1 - 2-d ose series) HPV vaccine (1 - 2-dose series) [place] Start: 1994 Varicella vaccine (1 of 2 - 2-dose childhood series) Varicella vaccine (1 of 2 - 2-dose childhood series) [place] CBC W Auto Different ial panel - Blood [facility] Chlamydia deoxyribon ucleic acid detection [facility] Cytology report of Cervical or vaginal smear or scraping Cyto stain.thin prep [facility] End: 03-15-2020 Hemoglobin Fractionation Profile Hemoglobin Fractionation Profile Lab Routine Supervision of high risk in first trimester 1 Occurrences starting 03/15/2020 until 03/15/2020 [place] Comment on above: 1 Occurrences starti ng 03/15/2020 until 03/15/2020 Hemoglobin Fractiona tion Profile Hemoglobin Fractionation Profile Lab Routine Supervision of high risk in first trimester 03/15/2020 2:56 PM EDT [place] End: 03-15-2020 Hepatitis B Surface Antigen Hepatitis B Surface Antigen Lab Routine Supervision of high risk in first trimester 1 Occurrences starting 03/15/2020 until 03/15/2020 [place], [place] Comment on above: 1 Occurrences starti ng 03/15/2020 until 03/15/2020 Hepatitis B Surface Antigen Hepatitis B Surface Antigen Lab Routine Supervision of high risk in first trimester 03/15/2020 2:56 PM EDT [place], [place] End: 03-15-2020 Hepatitis C Antibody Hepatitis C Antibody Lab Routine Supervision of high risk in first trimester 1 Occurrences starting 03/15/2020 until 03/15/2020 [place] Comment on above: 1 Occurrences starti ng 03/15/2020 until 03/15/2020 Hepatitis C Antibody Hepatitis C Antibody Lab Routine Supervision of high risk in first trimester 03/15/2020 2:56 PM EDT [place] Hepatitis C antibody measurement [facility] End: 03-15-2020 HIV Screen HIV Screen Lab Routine Supervision of high risk in first trimester 1 Occurrences starting 03/15/2020 until 03/15/2020 [place] Comment on above: 1 Occurrences starti ng 03/15/2020 until 03/15/2020 HIV Screen HIV Screen Lab R outine Supervision of high risk in first trimester 03/15/2020 2:56 PM EDT [place] Liquid based cervica l cytology screening [facility] Nonrebreather mask oxygen Nonreb reather mask oxygen Respiratory Care Routine As directed - RT (PRN) until discontinued starting 10/02/2020 [facility] Work Phone: Comment on above: As directed - RT (MT N) until discontinued starting 10/02/2020 Oxygen therapy [[facility] Data Set] Initiate Oxygen Therapy Protocol while on epidural Respiratory Care Routine Daily until discontinued starting 10/03/2020 [facility] Work Phone: Comment on above: Daily until disconti nued starting 10/03/[address] report[address] Dx Spec [facility] End: 03-15-2020 RPR with FTA Relex RPR with FTA Relex Lab Routine Supervision of high risk in first trimester 1 Occurrences starting 03/15/2020 until 03/15/2020 [place] Comment on above: 1 Occurrences starti ng 03/15/2020 until 03/15/2020 RPR with FTA Relex RPR with FTA Relex Lab Routine Supervision of high risk in first trimester 03/15/2020 2:56 PM EDT [place] Rubella IgG measurement [facility] Serologic test for syphilis [facility] End: 10-02-2020 Ultrasound OB limited - unit performed Ultrasound OB limited - unit performed OB Routine One Time for 1 Occurrences starting 10/02/2020 until 10/02/2020 [facility] Work Phone: Comment on above: One Time for 1 Occur rences starting 10/02/2020 until 10/02/2020 [facility] Immunizations Immunization Date Immunization Notes Care Provider Abhilash floyd 07-27-2020 tetanus toxoid, redu leana diphtheria toxoid, and acellular pertussis vaccine, adsorbed Savanna BENITO Work Phone: Payers Date Payer Category Payer Self-pay 2024 Unknown [id number] 2019 Unknown [employer] [address] [id number] 2019-Present [phone] [address] [place] [address] [id number] Unknown [id number] Unknown [id number] Unknown [id number] Unknown [id number] Unknown [id number] Unknown [id number] Social History Date Type Detail Facility Start: 02-03-2020 End: 12-13-2024 Tobacco smoking status NHIS Never smoker [facility] Start: 02-03-2020 End: 10-03-2020 Tobacco use and exposure [facility] Start: 02-03-2020 End: 10-03-2020 Alcohol intake [facility]-dr[facility] (finding) [facility]igned At Not on file [facility] [place] Start: [facility]-14-[facility] [place] Exposure to SARS-CoV -2 (event) Not sure [facility] Start: 1995 Sex Assigned At Female [facility] Start: 12-23-2024 Tobacco smoking stat us NHIS Ex-smoker (finding) [facility] Progress note 03-10-2025 Note Date & Type Note Facility 03-10-2025 Progress note [facility] Progress note 03-10-2025 Note Date & Type Note Facility 03-10-2025 Progress note Note Date/Time March 10, 2025 2:23pm [facility] [address], [address] [place] [address] OFFICE VISIT Date of Service: 03/10/25 MR#: [id number] Acct: [id number] Name: LOLA PEREZ Rep #: [id number] : 1995 Provider: PAULINO Jacinto Age/Sex: 29/F Location[facility] Status: Signed Intake Vital Signs 01/06/25 12:59 01/31/25 20:02 02/06/25 16:01 03/10/25 13:58 Height 5 ft 2 in 5 ft 2 in 5 ft 2 in 5 ft 2 in Weight: 124 lb 4 oz BMI 22.7 BP 102/67 Intake Visit Reasons: 18wk ob Chief Complaint: 18wk OB Motion Picture Narrator Required: No Is patient in pain?: No Allergies shrimp Allergy (Mild, Verified 03/10/25 13:57) Rash Medications ?Medication ?Instructions ?Recorded ?Confirmed ?Type vits 75-iron 28 mg-folic pkg PO 12/13/2402/27 History acid 800 mcg-omega-3 oral combo pack ([facility]) clobetasol 0.05 % topical cream 1 applic topical BID 2 weeks #45 01/31/25 03/10/25 Rx grams methylprednisolone 4 mg tablets in See Rx Instructions PO PER PKG DIR 02/06/25 03/10/25 Rx a dose pack (Medrol ([place])) #21 tabs Last Menstrual Period: 11/02/24 : No PFSH PFSH Medical History Gynecologic exam normal Family History Grandfather Heart disease Diabetes Father Hypertension Brain aneurysm in 40s Social History adopted: No household members: spouse, family and children housing: house number of children: 1 current occupational status: employed current occupation: [employer] 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) [...] physical activity do you participate in: none chung/mormon: None seatbelt use: always do you feel safe at home: Yes 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 Date Name GA/Weeks Outcome Route Bth Weight Infant Gen Labor Lgth Anesthesia Del Locatn Provider FOB 10/03/20 Andrea Suarez 40 live - full term 7lbs 5 oz Male epidural Abigail Mendez HPI 18wk ob Details: LOLA PEREZ is a 29 year old who presents for routine OB visit. OB Visit DONALD Calculator Estimated Delivery Date Method Current WG Current Estimate 08/09/25 LMP (Certain) 18w 2d Other Estimates 08/05/25 Ultrasound #1 18w 6d Expected Delivery Route/Plan Labor Preferences- CB/BF classes: [...] Dilation -?-?-?-?-?-?-?-?-?-?-?-?- Effaced St Visit Note 01/06/25 -?-?-?-?-?-?-?-?-?-?-?-?- 9w 2d 121 lb 2 oz (+2 oz) 106/69 -?-?-?-?-?-?-?-?-?-?-?-?- 158 -?-?-?-?-?-?-?-?-?-?-?-?- KW- CRL 2.96cm c ons with date. 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 feeling good. no vb/lof/ctx. good fm. MFM number given to schedule anatomy US. rash is slightly better and recommended benadryl and Claritin for sx. ACOG First Trimester First Trimester: Desire for , Alcohol, Tobacco Cessation, Illicit/Recreational Drug/Substance Use, Intimate Partner Violence, Barriers to care, Unstable Housing, Communication Barriers, Environmental/Work Hazards, Anticipated Course of Care, Toxoplasmosis Precations, Use of Any medications, Sexual activity, Exercise, Dental Care, Sauna/Hot tub use, Seat Belt use, Childbirth classes/Hospital facilities, Travel, Indications for Ultrasound and Screening for Aneuploidy; Discussed Second Trimester Second Trimester: Signs and Symptoms of Labor, Selecting a care provider, Reproductive Life Planning & Contreception, Care Planning, Depression/Anxiety and Intimate Partner Violence; Discussed Tobacco Cessation Third Trimester Third Trimester: Pain Management Plans, Labor support person(s), Immediate Larc, Signs and Symptoms of Preeclampsia, Feeding No , [place] Education and Family Medical Leave or Disability Forms ROS Const Reports system reviewed and no additional complaints, except as documented Eyes Reports system reviewed and no additional complaints, except as documented ENT Reports system reviewed and no additional complaints, except as documented Card Reports system reviewed and no additional complaints, except as documented Resp Reports system reviewed and no additional complaints, except as documented GI Reports system reviewed and no additional complaints, except as documented, Denies nausea and Denies vomiting Reports system reviewed and no additional complaints, except as documented Musc Reports system reviewed and no additional complaints, except as documented Skin/Breast Reports system reviewed and no additional complaints, except as documented Neuro Yes system reviewed and no additional complaints, except as documented Psych Reports system reviewed and no additional complaints, except as documented Endo Reports system reviewed and no additional complaints, except as documented Mauro/Lymph Reports system reviewed and no additional complaints, except as documented Aller/Immun Reports system reviewed and no additional complaints, except as documented Exam Const General: cooperative, healthy appearing and no acute distress Orientation: alert, awake and oriented x3 Neck Neck: normal visual inspection and full ROM Resp Effort & Inspection: normal respiratory effort, able to speak in complete sentences and symmetric chest movement GI Inspection: normal to inspection Palpation: soft and other Other: gravid Skin General: no rashes or lesions noted Neuro General: patient alert, patient awake and patient oriented x3 Cognition: normal cognition Speech: speech normal Gait: normal gait Motor: muscle tone normal throughout Extrem General: normal to inspection and full ROM Psych Appearance: grossly normal Mental Status: mental status grossly normal Mood: congruent mood Affect: normal affect Speech and Movement: speech and movement normal Attitude: cooperative Thought Process: normal Thought Content: normal Judgment: judgment good Results POC Urinalysis 2 Dip (Clinic) Office Urine Glucose Negative Last Edit by Yamila Pope on 03/10/25 14:04 Office Urine Protein Negative Last Edit by Yamila Pope on 03/10/25 14:04 Coding Level of Care Code OB Routine Diagnoses Psoriasis L40.9 Infertility Former smoker, stopped smoking in distant past Z87.891 Supervision of normal Z34.90 18 weeks gestation of Z3A.18 Weeks of gestation: 18 weeks Amenorrhea N91.2 Assessment and Plan Assessment and Plan (1) Psoriasis: Status: Acute (2) Infertility: Status: Acute Comment: 3yrs to conceive each (3) Former smoker, stopped smoking in distant past: Status: Acute (4) Supervision of normal : Status: Acute Comment: PRR, , DONALD 08/09/25, PC Andrea, Andrea (5) : Status: Acute Qualifiers: Weeks of gestation: 18 weeks Qualified Code(s): Z3A.18 - 18 weeks gestation of Comment: declined Carrier testing. NIPT low risk male. (6) Amenorrhea: Status: Acute Comment: nurse visit; positive test today. RTO as scheduled for New OB Orders: Orders POC Urinalysis 2 Dip (Clinic) Today Plan Details Additional Comments: ACOG trimester education reviewed and updated. see problem list details for updated plan management information and see below for orders placed at this visit. GA appropriate handout given. 03/10/25 4601 <Electronically signed by Aileen mata CNM> Date _ Aileen Jacinto CNM Cosigner Signature: Date (if applicable) CC: ~ [facility] [employer] Work Phone: Progress note 01-06-2025 Note Date & Type Note Facility 01-06-2025 Progress note [facility] Evaluation note 12-13-2024 Note Date & Type Note Facility 12-13-2024 Evaluation note Diagnosis Onset Date Resolution Amenorrhea acute December 13 1:58pm Amenorrhea acute January 06 12:35pm Former smoker, stopped smoking in distant past acute December 12:35pm Infertility acute January 06 12:35pm acute January 06 12:35pm Supervision of normal acute January 06, 2025 12:35pm [facility] Work Phone: Evaluation note 12-13-2024 Note Date & Type Note Facility 12-13-2024 Evaluation note Diagnosis Onset Date Resolution Amenorrhea acute December 13 1:58pm Amenorrhea acute January 06 12:35pm Former smoker, stopped smoking in distant past acute December 12:35pm Infertility acute January 06 12:35pm acute January 06 12:35pm Supervision of normal acute January 06, 2025 12:35pm acute January 31 4:08pm Psoriasis acute January 31 4:08pm Amenorrhea acute February 06, 2 025 3:58pm Former smoker, stopped smoking in distant past acute January 272024 3:58pm Infertility acute February 06, 2025 3:58pm acute February 06, 2 025 3:58pm Psoriasis acute February 06, 2 025 3:58pm Supervision of normal acute February 06 3:58pm [facility] Work Phone: Evaluation note 12-13-2024 Note Date & Type Note Facility 12-13-2024 Evaluation note Diagnosis Onset Date Resolution Amenorrhea acute December 13 1:58pm Amenorrhea acute January 06 12:35pm Former smoker, stopped smoking in distant past acute December 12:35pm Infertility acute January 06 12:35pm acute January 06 12:35pm Supervision of normal acute January 06, 2025 12:35pm acute January 31 4:08pm Psoriasis acute January 31 4:08pm Amenorrhea acute February 06, 2 025 3:58pm Former smoker, stopped smoking in distant past acute January 272024 3:58pm Infertility acute February 06, 2025 3:58pm acute February 06, 2 025 3:58pm Psoriasis acute February 06, 2 025 3:58pm Supervision of normal acute February 06 3:58pm Amenorrhea acute February 1:50pm Former smoker, stopped smoking in distant past acute Febemb2024 1:50pm Infertility acute February 1:50pm acute February 1:50pm Psoriasis acute February 1:50pm Supervision of normal acute March 10, 2025 1:50pm [facility] Work Phone: Evaluation note Note Date & Type Note Facility Evaluation note No assessment information availa ble [facility] Work Phone: Progress note Note Date & Type Note Facility Progress note Note Date/Time January 06, 2025 1:47pm [facility] [address], [address] [place] [address] OFFICE VISIT Date of Service: 01/06/25 MR#: [id number] Acct: [id number] Name: LOLA PEREZ Rep #: [id number] : 1995 Provider: PAULINO Jacinto Age/Sex: 29/F Location: [facility] Status: Signed Intake Vital Signs 12/13/24 14:03 01/06/25 12:59 Height 5 ft 2 in 5 ft 2 in Weight: 121 lb 2 oz BMI 22.1 BP 106/69 Intake Visit Reasons: *NEW* NOB LMP 11/02, DONALD 08/09 Chief Complaint: New OB Motion Picture Narrator Required: No Is patient in pain?: No [...] 1 current occupational status: employed current occupation: [employer] 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) [...] physical activity do you participate in: none chung/mormon: None seatbelt use: always do you feel safe at home: Yes 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 Date Name GA/Weeks Outcome Route Bth Weight Gen Labor Lgth Anesthesia Del Locatn Provider FOB 10/03/20 Andrea Suarez 40 live - full term 7lbs 5 oz Male epidural Abigail Mendez HPI *NEW* NOB LMP 5, DONALD 08/09 Details: LOLA PEREZ is a 29 year old who [...] Pulmonary (e.g.,TB,Asthma), Seasonal allergies, Drug/latex allergies/reactions, Breast, Egg Producer surgery, Operations/hospitalizations, Anesthetic complications, History of abnormal [...] patient and patient chose: [ ] 01/06/25 2454 <Electronically signed by Aileen mata CNM> Date _ Aileen Jacinto CNM Cosigner Signature: Date (if applicable) CC: ~ [employer] Work Phone: Reason for referral (narrative) Note Date & Type Note Facility Reason for referral (narrative) No reason for referral information available [facility] Work Phone: Assessments Diagnosis Missed menses Absence of menstruation Diagnosis Supervision of high risk in first trimester Unspecified high-risk Diagnosis care in second trimester Diagnosis PROM (premature rupture of membranes) Premature rupture of membranes in , unspecified as to episode of care Term Advance Directives Documents on File Type Date Recorded Patient Environmental Educator Expl anation Advance Directives and Living Will Power of Lead Security Officer Documents on File Type Date Recorded Patient Environmental Educator Expl anation ACP-Advance Directive ACP-Power of Lead Security Officer Latest Code Status on File Code Status Date Activated Date Inactivated Comments Full Code 10/03/2020 7:57 PM Full Code 10/02/2020 9:40 PM 10/03/2020 7:57 PM Hospital Course Note Department of Obstetrics and Gynecology Delivery Discharge Summary Admission on 10/02/2020 8:57 PM Reason for admission: PROM Intrapartum Course: Augmented with pitocin 39w4d PC-01 Indications for Delivery: Was patient delivered between 37w0d - [id number]? NO Surgical Operations & Procedures: Date of delivery: 10/03/20 Delivery Type: spontaneous vaginal Anesthesia: Epidural anesthesia Laceration(s): 2nd degree Delivery Complications: none Pertinent Findings & Procedures: Information for the patient's : GiorgioisraelPatel [[id number]] male Weight: 7 lb 5.1 oz (3.32 kg) Apgars: Information for the patient's : SlimePatel [[id number]] One Minute : 8 Five Minute : 9 Course: complicated by difficulty urinating which resolved, tachycardia associated with shaking and crying which also resolved, anemia (pp hgb 8.5), and elevated wbc without fevers/uterine tenderness/purulent discharge. No complaints by the time of discharge. : Male (more content not included)... Discharge Instructions * Instructions* Savanna Ramirez MD - 10/05/2020 Images from the original note were not included. After Your Delivery (the Period): Your Care Instructions Thank you for allowing us to care of you at [facility]. This time can be one of many [...] over the next few weeks. 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 Clean your hands often Wash your hands often with soap and water for at least 20 seconds, especially after blowing your nose, coughing, or sneezing; going to the bathroom; and before eating or preparing food. If soap and water are not readily available, use an alcohol-based hand law office assistant with at least 60% alcohol, covering all [...] healthcare provider to call the local or [facility] health department. Persons who are placed underactive [...] isolation precautions should be made on a cspb-lg-dlbc basis, in consultation with healthcare providers and [facility] health departments. Information on COVID-19 for all [...] respiratory tract signs and symptoms. Ways to [place] with Anxiety & Stress It is normal [...] an illness that was first found in [facility], in May 2019. It has since [...] seen in people before. This virus spreads xcvmuu-xm-sosnfy through droplets from coughing and sneezing. It [...] water aren't available, use an alcohol-based hand law office assistant. Call 911 anytime you think you may [...] of: September 28, 2019 Content Version: 12.4 [employer]. Care instructions adapted under license by your healthcare professional. If you have questions about a medical condition or this instruction, always ask your healthcare professional. [employer] disclaims any warranty or liability for your use of this information. General Recommendations for Routine Cleaning and Disinfection of Households Community members can practice routine cleaning of frequently touched surfaces (for example: tables, doorknobs, light switches, handles, desks, toilets, faucets, sinks) with household abstract searcher and EPA-registered disinfectants that are appropriate for [...] appropriate. These supplies include tissues, paper towels, abstract searcher and EPA-registered disinfectants (see list link at [...] be used for other purposes. Consult the rubber press tender's instructions for cleaning and disinfection products used. [...] used if appropriate for the surface. Follow rubber press tender's instructions for application and proper ventilation. Check [...] o Products with EPA-approved emerging viral pathogens claimsf iconexternal icon are expected to be effective against COVID-19 based on data for harder to kill viruses. Follow the rubber press tender's instructions for all cleaning and disinfection products (e.g., concentration, application method and contact time, etc.). Soft (porous) surfaces such as carpeted floor, rugs, and drapes Remove visible contamination if present and clean with appropriate abstract searcher indicated for use on these surfaces. After cleaning: Launder items as appropriate in accordance with the rubber press tender's instructions. If possible, launder items using the [...] items as appropriate in accordance with the rubber press tender's instructions. If possible, launder items using the warmest appropriate water setting for the items and dry items completely. Dirtylaundry from an ill person can be washed with other people's items. o Clean and disinfect clothes hampers according to guidance above for surfaces. If possible, consider placing a bag shop worker that is either disposable (can be thrown away) or can be laundered. CDC has a list of EPA approved cleaning products on their website - https://www.cdc.gov/coronavirus/ 2019-ncov/community/home/cleaning-disinfection.html https://www.[employer].QuarterSpot/Fuafq-Aqfzeytalrn-Uiuphufu-Products-List.pdf boaconsulta.com Stores with delivery and picker machine operator services: [facility] [place]: Free picker machine operator at locations Delivery is $12.95 a month Website - [employer] [place]: Primary Care Pediatrician $2.95 (1st order is free) Delivery is $14.95 Website [employer] Pamela [place]: switch coupler is free Delivery is $5.95 Website [employer]: switch coupler is $4.95 Delivery is $9.95 Website [employer]: switch coupler is $4.95 Delivery is $9.95 [employer] Market: Can be ordered for delivery and picker machine operator with [employer] Website - [employer]: Free deliver for first 3 orders of $35 or more Website aldiShaka Will deliver from [facility], [employer], [employer], and [...] to pain? Plan:Encouraged oral intake with the QualySense pitcher,2.5 cups per pitcher,attempt 2 before considering [...] expectant management Cx:deferred FHP: Cat I tracing [place]: q5min A/P: 1. PROM 2. Urehral caruncle 3. Subchorionic hemorrhage of placenta in first trimester. Laying in bed with epidural in place. Denies any pain or discomfort at this time. Continues to haveleakage of fluid. Contractions have slowed to q5mins. Cat I tracing on monitor with no decels present. Continue routine management. \ Cx:deferred FHP: Cat I tracing [place]:irregular A/P: 1. PROM 2. Urethral caruncle 3. [...] Viramontes MD - 10/03/2020 1:18 AM EDT Lola Perez is a 25 y.o. female 39w4d [...] in this encounter Summary Purpose Family History Relationship Condition Age at Onset Recorded Date/T [place] grandfather Cardiac disease Unknown Diabetes mellitus Unknown father Hypertension Unknown Cerebral aneurysm Unknown Chief Complaint and Reason for Visit Chief Complaint Admit Date Confirm , est care December 13 1:58pm Chief Complaint Admit Date Confirm , est care December 13 1:58pm *NEW* NOB LMP 11/02, DONALD 08/09January 06 025 12:35pm Reason for Visit Admit Date Amenorrhea December 13, 2024 1:58 pm Amenorrhea January 06, 2025 12:3 5pm Former smoker, stopped smoking in dist[place] past January 06, 2025 12:35pm Infertility January 06, 2025 12:3 5pm January 06, 2025 12:3 5pm Supervision of normal December 12:35pm Chief Complaint Admit Date Confirm , est care December 13 1:58pm *NEW* NOB LMP 11/02, ODNALD 08/09January 06 025 12:35pm Rash January 31, 2025 4:0 8pm 13 wk OB February 06, 2025 3: 58pm Reason for Visit Admit Date Amenorrhea December 13, 2024 1:58 pm Amenorrhea January 06, 2025 12:3 5pm Former smoker, stopped smoking in [place] January 06, 2025 12:35pm Infertility January 06, 2025 12:3 5pm January 06, 2025 12:3 5pm Supervision of normal December 12:35pm January 31, 2025 4:0 8pm Psoriasis January 31, 2025 4:0 8pm Amenorrhea February 06, 2025 3: 58pm Former smoker, stopped smoking in February 06, 2025 3:58pm Infertility February 06, 2025 3: 58pm February 06, 2025 3: 58pm Psoriasis February 06, 2025 3: 58pm Supervision of normal January 272024 3:58pm Chief Complaint Admit Date Confirm , est care December 13, 2 025 1:58pm *NEW* NOB LMP 11/02, DONALD 08/09January 06, 2 025 12:35pm Rash January 31, 2025 4:0 8pm 14wk ob February 06, 2025 3: 58pm 18wk ob March 10, 2025 1:50pm Reason for Visit Admit Date Amenorrhea December 13, 2024 1:58 pm Amenorrhea January 06, 2025 12:3 5pm Former smoker, stopped smoking in January 06, 2025 12:35pm Infertility January 06, 2025 12:3 5pm January 06, 2025 12:3 5pm Supervision of normal December 12:35pm January 31, 2025 4:0 8pm Psoriasis January 31, 2025 4:0 8pm Amenorrhea February 06, 2025 3: 58pm Former smoker, stopped smoking in [place] February 06, 2025 3:58pm Infertility February 06, 2025 3: 58pm February 06, 2025 3: 58pm Psoriasis February 06, 2025 3: 58pm Supervision of normal January 272024 3:58pm Amenorrhea March 10, 2025 1:50pm Former smoker, stopped smoking in [place] past March 10, 2025 1:50pm Infertility March 10, 2025 1:50pm March 10, 2025 1:50pm Psoriasis March 10, 2025 1:50pm Supervision of normal [place]ia [place] carmene r 2024 1:50pm Additional Source Comments Ordered Prescriptions (unrec ognized [...] section and content) DATE CREATED AUTHOR 10/11/2020 [facility] DATE CREATED AUTHOR AUTHOR'S ORGANIZ ATION 03/09/2025 [facility] Care Teams (unrecognized sec tion and [...] Team Status: Inactive Member Role/Relationship Status Dates Dr. Keyona Marshall DO Attending Provider Activ e Start: January 16, 2025 End: January 16, 2025 Team Status: Inactive Member Role/Relationship Status Dates Jody Jacobsen RESEARCH GENETICIST, RESEARCH GENETICIST-C Attending Provider Active Start: January 31, 2025 End: January 31, 2025 Team Status: Inactive Member Role/Relationship Status Dates Dr. Dee Miller MD Attending Provider Active Start: February 06, 2025 End: February 06, 2025 Team Status: Inactive Member Role/Relationship Status Dates Aileen Jacinto CNM Attending Provider Active S tart: March 10, 2025 End: March 10, 2025 Goals (unrecognized section and content) Goals [...] BE BASED ON THE PRIMARY CLINICAL RECORDS. [facility] [employer] [facility]. provides no warranty or guarantee of the accuracy or completeness of information in this document.
[2025-03-12 04:55] VITALS: BP 100/70; PULSE 88; RESP 16; TEMP 36.6; O2SAT 100
== END 2025-03-12 04:58 | disposition home or self-care (01) ==
PROVIDERS: Emergency Provider Student in an Organized Health Care Education/Training Program; Visit Provider Student in an Organized Health Care Education/Training Program
DX: O20.9 Hemorrhage in early pregnancy, unspecified (principal); Z3A.18 18 weeks gestation of pregnancy
CPT/HCPCS: 81001; 84702; 99282; A4216

== ENCOUNTER → 2025-05-05 | Outpatient (CLI) | payer OTHER, SELFPAY ==
[2025-05-05 16:57] LABS: Hematocrit 37.5 % (37-47); Hemoglobin 12.5 g/dL (12.0-15.0); Immature Granulocytes Count 0.090 X10^3/uL (0.0-0.0); Mean Corp Hgb Conc 33.3 g/dL (32-36); Mean Corpuscular Volume 93.1 fL (81-99); Mean Platelet Vol. 10.0 fl (6.2-12.0); NRBC Flagged by Analyzer 0 % (0-5); Platelet Count 242 K/mm3 (150-450); RBC Distribution Width CV 13.3 % (11.6-14.6); RBC Distribution Width SD 45.8 fl (35.1-43.9); Red Blood Count 4.03 M/mm3 (4.2-5.4); White Blood Count 11.9 K/mm3 (4.4-11.0)
--- OUTSIDE RECORDS SUMMARY | 2025-05-05 17:10 | XMS RPT_ITS | CCD ---
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 Keyona Marshall DO Attending Provider Delmar MANLEY, Jody Attending Provider [phone] Paul DOWD, Dr. Price Attending Provider [phone] Dr. Delphine Daily MD Emergency Provider Unavailab le Care Physician, No Primary Primary Care Provider Unavailable Keyona Marshall Attending UnavailDelphine Irby Attending Unavailable Care Physician, No Primary Primary Care Unava ilable Dee Smith Attending Unavailable Marina Taylor Attending Unavailable Care Physician, No Primary Referring Unava ilable Marina Taylor Attending Unavailable Care Physician, No Primary Primary Care Unava ilable Patria Dooley Attending Unavailable Marina Taylor Attending Unavailable Marina Taylor Attending Unavailable Unavailable Primary Care Provider Unavailstalin blanco NO PRIMARY CAREMD Primary Care Unavailable CLAUDIA LANDEROS Attending Unavailable DEE SMITH Referring UnavailMARINA Almazan S Referring Unavailable NO PRIMARY CARE, Primary Care Unavailable JOVITA WISEMAN Attending Unavailable Marina Taylor CNM Attending Physician [phone] Dr. Keyona Marshall DO Attending Physician Delmar MANLEY, Jody Attending Physician Dr. Dee Smith MD Attending Physician Dr. Delphine Daily MD Attending Physician Unavaila [facility] Abimbola DOWD, Dr. Akers Emergency Department Physici an Unavailable Care Physician, No Primary Primary Care Physicia n Unavailable Care Physician, No Primary Referring Provider Un available Allergies Allergy Classification Reported Allergen(s) Allergy Type Date of Onset Reaction(s) Facility (7 sources) shrimp allergenic extract Drug Allergy 01-06-2025 Rash [facility] (1 source) Shrimp product Drug allergy (disorder) 04-07-2025 [facility] Repository Medications Current Medications Medication [...] infusion clobetasol propionate 0.5 mg/ml topical cream (5 sources) Corticosteroid Start: 01-31-2025 clobetasol (Temovate) 0.05 % cream Apply 1 Application topically 2 times a day. 01/31/2025 Active Start: 01-31-2025 Clobetasol 0.0 5 % cream Active 1 NMA TOPICAL TWICE A DAY 45 14 5 January 31, 2025 12:00am Psoriasis Psoriasis, unspecified use 2 x a day for 2 weeks on and 2 weeks off till cleared then as needed Complies with drug therapy doxylamine succinate 25 mg oral tablet (1 [...] sulfat e (IRON 325) tablet 325 mg ketoconazole 20 mg/ml medicated shampoo (1 source) Azole Antifungal Start: 03-02-2025 ketoconazole (NIZOral) 2 % shampoo Apply 1 Application topically 2 times a week. 03/02/2025 Active lansinoh lanolin ointment (1 source) Start: 10-03-2020 lansinoh lanol in ointment 2 ml ondansetron 2 mg/ml injection (2 sources) Serotonin-3 Receptor Antagonist Start: 10-02-2020 End: 10-03-2020 ondansetron (ZOFRAN) injection 4 mg Untaec59-Epcj Fum-Folic Ac-Om3 (One A Day Women's Dha) 28 mg iron- 800 mcg combo pack (5 sources) Start: 12-13-2024 Eizurj99-Yqxc Fum-Folic Ac-Om3 (One A Day Women's Dha) 28 mg iron- 800 mcg combo pack Active NMA PO December 13, 2024 12:00am 75-Iron Gqm-Ywiez-Tr9 (One A Day Women's Dha) 28 mg iron- 800 mcg combo pack (3 sources) Start: 12-13-2024 75-Ir on Mzm-Rxmsq-Ma1 (One A Day Women's Dha) 28 mg iron- 800 mcg combo pack Active NMA PO December 13, 2024 12:00am Complies with drug therapy Start: 12-13-2024 75-Ir on Bmx-Prdfw-Nv1 (One A Day Women's Dha) 28 mg iron- 800 mcg combo pack Active NMA PO December 13, 2024 12:00am VIT 10-IRON FUM-FOLIC ORAL (1 source) take 1 tablet by mouth in the morning VIT 10-IRON FUM-FOLIC ORAL Take 1 tablet by mouth early in the morning.. Active Vit-Fe Fumarate-FA ( VITAMIN) 27-0.8 MG TABS (4 sources) Start: take 1 tablet by mouth once daily Vit-Fe Fumarate-FA ( VITAMIN) 27-0.8 MG TABS Take 1 tablet by mouth daily 90 tablet 4 02/03/2020 Active pyridoxine hydrochloride 25 mg oral tablet (1 source) Start: 0 take 1 tablet by mouth three times daily vitamin B-6 (PYRIDOXINE) 25 MG tablet Indications: Nausea and vomiting of , antepartum Take 1 tablet by mouth 3 times daily 90 tablet 3 03/15/2020 Active ropivacaine 0.2% in sodium chloride 0.9% 200mL (OB) epidural (1 source) Start: 1 ropivacaine 0.2% in sodium chloride 0.9% 200mL (OB) epidural simethicone 80 mg chewable tablet (1 source) Start: 1 simethicone (MYLICON) chewable tablet 80 mg triamcinolone acetonide 1 mg/ml topical cream (1 source) Corticosteroid Start: 5 triamcinolone (Kenalog) 0.1 % cream Apply 1 Application topically 2 times a day. 03/02/2025 Active witch anthony 500 mg/ml medicated pad (1 source) Start: 1 witch anthony-glycerin (TUCKS) pad Completed/Discontinued Medications Medication Drug Class(es) Dates Sig (Normalized) Sig (Original) 1 ml dexamethasone phosphate 4 mg/ml injection (2 sources) Corticosteroid Start: 04-12-2025 End: 04-12-2025 dexAMETHasone (Decadron) injection 8 mg Start: 04-12-2025 End: 04-12-2025 inject 8 mg by intramuscular injection once 8 mg, intramuscular, Once, On Thu04/12/25 at 1445, For 1 dose docusate sodium 100 mg oral capsule (3 [...] hours 40 tablet 1 10/05/2020 10/05/2020 Discontinued methylPREDNISolone 4 mg oral tablet (3 sources) Corticosteroid Start: 02-06-2025 End: 03-12-2025 take 1 tablet by mouth once Methylprednisolone (Medrol (Hayder)) 4 mg tablets,dose pack Discontinued 0 PO per package directions 21 0 February 06, 2025 12:00am March 12, 2025 3:15am PO PER PKG DIR oxyCODONE hydrochloride 5 mg oral tablet (1 source) Opioid Agonist Start: 10-04-2020 End: 10-04-2020 oxyCODONE (ROXICODONE) immediate release tablet 5 mg Oxytocin-Sodium Chloride 30-0.9 UT/500ML-% SOLN (2 sources) Start: 10-03-2020 End: 10-03-2020 Oxytocin-Sodium Chloride 30-0.9 UT/500ML-% SOLN Start: 10-02-2020 End: 10-03-2020 Oxytocin-Sodium Chloride 30- 0.9 UT/500ML-% SOLN Problems Active Problems Problem Classification Problem Date Documented Da te Episodic/Chronic Hemorrhage during ; abruptio placenta; placenta previa (3 sources) Bleeding from female genital tract during ; Translations: [Antepartum hemorrhage, unspecified, unspecified trimester] Onset: 03-17-2025 03-12-2025 Episodic Menstrual disorders (20 sources) Missed period; Translations: [Amenorrhea] Onset: 04-07-2025 12-13-2024 Chronic Comment on above: nurse visit; positiv e test today. RTO as scheduled for New OB Other complications of (1 source) High risk ; Translations: [Supervision of high risk in first trimester] Episodic Other inflammatory condition of skin (12 sources) Psoriasis; Translations: [Psoriasis, unspecified] 01-31-2025 Chronic Comment on above: steroid inj @ 23w. 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 NIPT low risk male. Polyhydramnios and other problems of amniotic cavity (5 sources) Subchorionic hematoma; Translations: [Premature rupture of membranes] Onset: 03-15-2020 03-15-2020 Episodic Residual codes; unclassified (20 sources) Infertile 12-23-2024 Episodic Comment on above: 3yrs to conceive eac h Residual codes; unclassified (1 source) 22 weeks gestation of ; Translations: [22 weeks gestation of ] Onset: 04-07-2025 Episodic Screening and history of mental health and substance abuse codes (20 sources) Ex-smoker; Translations: [Personal history of nicotine dependence] Onset: 04-07-2025 12-23-2024 Episodic Unclassified (2 sources) Patient encounter status; Translations: [ care, antepartum] Onset: 03-15-2020 03-15-2020 Past or Other Problems Problem Classification Problem Date Documented Da te Episodic/Chronic Other diseases of bladder and urethra (2 sources) Urethral caruncle; Translations: [Urethral caruncle] Onset: 04-26-2020 04-26-2020 Episodic Other screening for suspected conditions (not mental disorders or infectious disease) (2 sources) care status; Translations: [Encounter for screening for malignant neoplasm of cervix] Onset: 01-06-2025 Episodic Residual codes; unclassified (1 source) 9 weeks gestation of ; Translations: [9 weeks gestation of ] Onset: 01-06-2025 Episodic NEGATED: Highlighted row has been ruled out!Unclassified (1 source) No known active problems 04-12-2025 Results Test Name Value Interpretation Reference Range Facility Laboratory - Chemistry and C hemistry - challengeOrdered By: Marina Taylor on 04-07-2025 Glucose Ql (U) Negative [facility] Laboratory - UrinalysisOrder ed By: Marina Taylor on 04-07-2025 Protein Ql (U) Negative [facility] Playroom Attendant Office Visit Reporton 04-07-2025 Playroom Attendant Office Visit Report [facility]'s [address], [address] [place] [address] OFFICE VISIT Date of Service: 04/07/25 MR#: [id number] Acct: [id number] Name: LOLA PEREZ Rep #: [id number] : 1995 Provider: PAULINO Kaplan ams Age/Sex: 29/F [place] [facility] [place] Status: Signed Intake Vital Signs 02/06/25 16:01 03/12/25 03:06 04/07/25 14:30 Height 5 ft 2 in 5 ft 5 ft Weight: 129 lb 9 oz BMI 25.2 BP 110/74 Intake Visit Reasons: 22wk ob Chief Complaint: 22wk OB Ehr Trainer Required: No Is patient in pain?: No Allergies shrimp Allergy (Mild, Verified 04/07/25 14:29) Rash Medications ???Medication ???Instructions ???Recorded ???Confirmed ???Type vits 75-iron 28 mg-folic pkg PO 12/13/24 04/07/25 History acid 800 mcg-omega-3 oral combo pack (One A Day Women's DHA) clobetasol 0.05 % topical cream 1 applic topical BID 2 weeks #45 0 01/31/25 04/07/25 Rx grams Last Menstrual Period: 11/02/24 : No Have you fallen in the past year?: No PFSH PFSH Medical History Gynecologic exam normal Family History Grandfather Heart disease Diabetes Father Hypertension Brain aneurysm in 40s Social History adopted: No household members: spouse, family and children housing: house number of children: 1 current occupational status: employed current occupation: [employer] 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) pets and animals: Yes (Avoid litterbox ) pets and animals: cat(s) history of recent travel: No sexually active: Yes Smoking Status: Never smoker second hand exposure: No alcohol intake: current alcohol intake frequency: holidays/special occasions only details: Not while substance use type: does not use well-balanced diet: daily or most days caffeine: No eating out: 1-3 times/week during the past year weight has: remained stable what type of physical activity do you participate in: none chung/zoroastrianism: None seatbelt use: always do you feel safe at home: Yes additional social history: - Andrea- Staff Setter Out History 2 Elective abortions Hx Para 1 Spontaneous abortions Hx # Term Pregnancies Ectopic pregnancies Hx # Pregnancies Multiple births # of living children 1 Past Pregnancies Del. Date Name GA/Weeks Outcome Route Bth Weight Infant Gen Labor Lgth Anesthesia Del Locatn Provider FOB 10/03/20 Andrea Suarez 40 live - full term 7lbs 5oz Male epidur al Abigail Ramirez Andrea HPI 22wk ob Details: LOLA PEREZ is a 29 year old who presents for routine OB visit. OB Visit DONALD Calculator Estimated Delivery Date Method Current WG Current Estimate 08/09/25 LMP (Certain) 22w 2d Other Estimates 08/05/25 Ultrasound #1 22w 6d Expected Delivery Route/Plan Labor Preferences- CB/BF [...] and steroid pack may be pupps 03/10/25 -???-???-???-???-?? ?-???-???-???-???-? ??-???-???- 18w 2d 124 lb 4 oz (+3 lb 4 oz) 1 (more content not included)... Normal [facility] Bilirubin Test strip Ql (U)O rdered By: Delphine Daily on 03-12-2025 Bilirubin Ql (U) Negative Negative [facility] Emergency Department Summary on 03-12-2025 Emergency Department Summary [facility] Medical Records Department [address] [place] [address] Emergency Department Summary 03/12/25 MR#: [id number] Acct: [id number] Name: LOLA PEREZ Rep #: [id number] : 1995 29 From: Delphine Daily MD PCP: Care Physician,No Primary Status:DEP ER Location: ED HPI HPI - Female History of Present Illness Chief Complaint: Vag Bld, Preg Narrative Narrative: Patient is a 29-year-old female presenting to the emergency department for vaginal bleeding. Patient is 18 weeks and 2 days . She is G2, P1. She just had her 18-week visit on 03/10. thus far has been normal. She is scheduled for her anatomy scan at the end of the month. Patient states that this evening around 10 PM she noted some pink spotting. She states when she went to the bathroom this evening around 2 AM she noticed 3 drops of blood. She denies any abdominal pain, nausea, vomiting. Denies any abdominal trauma. Denies any vaginal trauma and denies any recent sexual intercourse. Denies any dysuria or hematuria. Denies any leakage of fluids. [facility] Medical History Gynecologic exam normal Home Medications ???Medication ???Instructions ???Recorded ???Last Taken ???Type vits 75-iron 28 mg-folic pkg PO 12/13/24 Unknown History acid 800 mcg-omega-3 oral combo pack (One A Day Women's DHA) clobetasol 0.05 % topical cream 1 applic topical BID 2 weeks #45 0 01/31/25 Unknown Rx grams Allergy/AdvReac Type Severity Reaction Status Date / Time shrimp Allergy Mild Rash Verified 03/10/25 13:57 Family History Grandfather Heart disease Diabetes Father Hypertension Brain aneurysm in 40s Social History adopted: No household members: spouse, family and children housing: house number of children: 1 current occupational status: employed current occupation: [employer] 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) pets and animals: Yes (Avoid litterbox ) pets and animals: cat(s) history of recent travel: No sexually active: Yes Smoking Status: Never smoker second hand exposure: No alcohol intake: current alcohol intake frequency: holidays/special occasions only details: Not while substance use type: does not use well-balanced diet: daily or most days caffeine: No eating out: 1-3 times/week during the past year weight has: remained stable what type of physical activity do you participate in: none chung/zoroastrianism: None seatbelt use: always do you feel safe at home: Yes additional social history: - Andrea- Staff Setter Out ROS ROS ED ROS Narrative See HPI EXAM Physical Exam Narrative Exam Narrative: Vital signs: Reviewed General: Alert and oriented. No acute distress HEENT: Head is normocephalic and atraumatic, sinuses nontender, pupils equal round and reactive. Nares are patent. Oropharynx and throat exams normal. Neck: Supple without lymphadenopathy nontender Cardiovascular: Regular rate and rhythm, no murmurs. No rubs or gallops. Normal S1 and S2 Respiratory: Clear to auscultation bilaterally. No wheezes, rales, rhonchi Abdominal: Soft and nontender. Normal bowel sounds. No guarding or rebound. Nonsurgical abdomen : Done with business development engineer, RN at bedside. Normal external female genitalia. No blood noted on external exam. On external rectal exam there is no noted hemorrhoid or fissure. On internal pelvic exam the cervix is closed there is no erythema of the cervix. There is no blood coming from the cervix. There is no blood in the vaginal vault. There is no lacerations. Extremities: No tenderness. No bruising. Normal range of motion. Normal sensation. The rest of the physical exam is unremarkable Const Vital Signs: 03/12/25 03:06 03/12/25 04:55 Temperature 98 F 98 F Temperature Source Oral Pulse Rate 94 88 Respiratory Rate 16 16 Blood Pressure 113/74 100/70 Blood Pressure Mean 87 80 Pulse Ox 100 100 Oxygen Delivery Method Room Air MDM MDM MDM Narrative Medical decision making narrative: Patient is a 29-year-old female presenting to the emergency department for vaginal bleeding. She is 18 weeks and 2 days. Patient was seen and examined. Vitals are stable. Patient resting in bed comfortably no acute distress. Differential includes but is not limited to: Threatened vs inevitable vs incomplete , cervicitis, UTI, less likely ectopic given normal US reported at OBGYN visits OB ultrasound was completed by myself at bedside. Normal movement. heart rate of 138. Normal-appearing placenta. Pelvic exam done with RN at bedside the ce (more content not included)... Normal [facility] Ketones Test strip Ql (U)Ord ered By: eDlphine Daily on 03-12-2025 Ketones Ql (U) Negative Negative [facility] Microscopic analysis of urin e for red blood cells (RBC)Ordered By: Delphine Daily on 03-12-2025 Microscopic analysis of urine for red blood cells (RBC) 0 SEEN /hpf 0-5 [facility] Mucus LM Ql (Urine sed)Order ed By: Delphine Daily on 03-12-2025 Mucus Ql (Urine sed) 0 SEEN /hpf [facility] Nitrite Test strip Ql (U)Ord ered By: Delphine Daily on 03-12-2025 Nitrite Ql (U) Negative Negative [facility] Protein Test strip Ql (U)Ord ered By: Delphine Daily on 03-12-2025 Protein Ql (U) 15 mg/dl High Negative [facility] Serum human chorionic gonado tropin detection for pregnancyOrdered By: Delphine Daily on 03-12-2025 HCG ( test) Ql [address] mIU/mL High <9 [facility] Comment on above: Gestational Age0.2-1 Week: 5-50 mIU/mL1-2 Weeks: 50-500 mIU/mL2-3 Weeks: 100-5000 mIU/mL3-4 Weeks: 500-10,000 mIU/mL4-5 Weeks:1000-50,000 mIU/mL5-6 Weeks: 10,000-100,000 mIU/mL6-8 Weeks: 15,000-200,000 mIU/mL2-3 Months:10,000-100,000 mIU/mL Squamous epithelial cells de tection in urine sediment by light microscopyOrdered By: Delphine Daily on 03-12-2025 Epithelial cells.squamous LM Ql (Urine sed) 0 SEEN /hpf 5-10 [facility] Urinalysis, Completeon 03-12 BACTERIA 0 SEEN Normal None Seen [facility] Comment on above: Order Comment: CLEAN CATCH Performed By: #### L [id number] ####[facility] [address] [place], [address] EPI,SQUAMOUS 0 SEEN Normal 5-10 [facility] Comment on above: Order Comment: CLEAN CATCH Performed By: #### L [id number] ####[facility] [address] [place], [address] Mucus Ql (Urine sed) 0 SEEN Normal [facility] Comment on above: Order Comment: CLEAN CATCH Performed By: #### L [id number] ####[facility] [address] [place], [address] RBC 0 SEEN Normal 0-5 [facility] Comment on above: Order Comment: CLEAN CATCH Performed By: #### L [id number] ####[facility] [address] [place], [address] WBC 0 SEEN Normal 0-5 [facility] Comment on above: Order Comment: CLEAN CATCH Performed By: #### L [id number] ####[facility] [address] [place], [address] Urine clarityOrdered By: Fernanda Daily on 03-12-2025 Clarity (U) Clear Clear [facility] Urine color determinationOrd ered By: Delphine Daily on 03-12-2025 Color (U) Yellow Yellow [facility] Urine glucose detectionOrder ed By: Delphine Daily on 03-12-2025 Glucose Ql (U) Normal mg/dl Normal [facility] Urine leukocyte esterase det ection by dipstickOrdered By: Delphine Daily on 03-12-2025 Leukocyte esterase Test strip Ql (U) Negative Negative [facility] Urine pHOrdered By: Delphine waddell on 03-12-2025 pH (U) 7.0 [pH] 5.0 - 8.0 [facility] Urine sediment bacteria coun t by microscopy (number/high power field)Ordered By: Delphine Daily on 03-12-2025 Bacteria LM.HPF (Urine sed) [#/Area] 0 /[HPF] None Seen [facility] Urine specific gravity measu rementOrdered By: Delphine Daily on 03-12-2025 Specific gravity (U) [Rel density] 1.010 1.002-1.030 [facility] Urine urobilinogen measureme ntOrdered By: Delphine Daily on 03-12-2025 Urobilinogen Ql (U) Normal mg/dl Normal [facility] White blood cell countOrdere d By: Delphine Daily on 03-12-2025 White blood cell count 0 SEEN /hpf 0-5 [facility] hCG Titer Quant., Serumon HCG QUANT. 42899 mIU/mL High <9 non-preg [facility] Comment on above: Result Comment: Gest ational Age 0.2-1 Week: 5-50 mIU/mL 1-2 Weeks: 50-500 mIU/mL 2-3 Weeks: 100-5000 mIU/mL 3-4 Weeks: 500-10,000 mIU/mL 4-5 Weeks:1000-50,000 mIU/mL 5-6 Weeks: 10,000-100,000 mIU/mL 6-8 Weeks: 15,000-200,000 mIU/mL 2-3 Months:10,000-100,000 mIU/mL Performed By: #### L [id number] ####[facility] [address] [place], [address] Laboratory - Chemistry and C hemistry - challengeOrdered By: Marina Taylor on 03-10-2025 Glucose Ql (U) Negative [facility] Laboratory - UrinalysisOrder ed By: Marina Taylor on 03-10-2025 Protein Ql (U) Negative [facility] Playroom Attendant Office Visit Reporton 03-10-2025 Playroom Attendant Office Visit Report [facility]'s [address], [address] [place] [address] OFFICE VISIT Date of Service: 03/10/25 MR#: [id number] Acct: [id number] Name: LOLA PEREZ Rep #: [id number] : 1995 Provider: PAULINO Kaplan ams Age/Sex: 29/F [place] [facility] [place] Status: Signed Intake Vital Signs 01/06/25 12:59 01/31/25 20:02 02/06/25 16:01 03/10/25 13:58 Height 5 ft 2 in 5 ft 2 in 5 ft 2 in 5 ft 2 in Weight: 124 lb 4 oz BMI 22.7 BP 102/67 Intake Visit Reasons: 18wk ob Chief Complaint: 18wk OB Ehr Trainer Required: No Is patient in pain?: No Allergies shrimp Allergy (Mild, Verified 03/10/25 13:57) Rash Medications ???Medication ???Instructions ???Recorded ???Confirmed ???Type vits 75-iron 28 mg-folic pkg PO 12/13/24 03/10/25 History acid 800 mcg-omega-3 oral combo pack (One A Day Women's DHA) clobetasol 0.05 % topical cream 1 applic topical BID 2 weeks #45 0 01/31/25 03/10/25 Rx grams methylprednisolone 4 mg tablets in See Rx Instructions PO PER PKG D IR 02/06/25 03/10/25 Rx a dose pack (Medrol (Hayder)) #21 tabs Last Menstrual Period: 11/02/24 : No PFSH PFSH Medical History Gynecologic exam normal Family History Grandfather Heart disease Diabetes Father Hypertension Brain aneurysm in 40s Social History adopted: No household members: spouse, family and children housing: house number of children: 1 current occupational status: employed current occupation: [employer] 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) [...] physical activity do you participate in: none chung/zoroastrianism: None seatbelt use: always do you feel safe at home: Yes additional social history: - Andrea- Staff Setter Out History 2 Elective abortions Hx Para 1 Spontaneous abortions Hx # Term Pregnancies Ectopic pregnancies Hx # Pregnancies Multiple births # of living children 1 Past Pregnancies Del. Date Name GA/Weeks Outcome Route Bth Weight Infant Gen Labor Lgth Anesthesia Del Locatn Provider FOB 10/03/20 Andrea Suarez 40 live - full term 7lbs 5oz Male epidur al Fletcher James Mendez HPI 18wk ob Details: LOLA PEREZ [...] with steroid cream, no biopsy was done, reo (more content not included)... Normal [facility] Laboratory - Chemistry and C hemistry - challengeOrdered By: Dee Smith on 02-06-2025 Glucose Ql (U) Negative [facility] Laboratory - UrinalysisOrder ed By: Dee Smith on 02-06-2025 Protein Ql (U) Negative [facility] Playroom Attendant Office Visit Reporton 02-06-2025 Playroom Attendant Office Visit Report [facility]'s [address], [address] [place] [address] OFFICE VISIT Date of Service: 02/06/25 MR#: [id number] Acct: [id number] Name: LOLA PEREZ Rep #: [id number] : 1995 Provider: Dr. Dee rodríguez MD Age/Sex: 29/F Location: [facility] [place] Status: Signed Intake Vital Signs 12/13/24 14:03 01/31/25 20:02 02/06/25 16:01 Height 5 ft 2 in 5 ft 2 in 5 ft 2 in Weight: 121 lb BMI 22.1 BP 96/63 Intake Visit Reasons: 13 wk OB Ehr Trainer Required: No Is patient in pain?: No [...] 1 current occupational status: employed current occupation: [employer] 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) [...] physical activity do you participate in: none chung/zoroastrianism: None seatbelt use: always do you feel safe at home: Yes additional social history: - Andrea- Staff Setter Out History 2 Elective abortions Hx Para 1 Spontaneous abortions Hx # Term Pregnancies Ectopic pregnancies Hx # Pregnancies Multiple births # of living children 1 Past Pregnancies Del. Date Name GA/Weeks Outcome Route Bth Weight Gen Labor Lgth Anesthesia Del Locatn Provider FOB 10/03/20 Andrea Suarez 40 live - full term 7lbs 5oz Male epidur al Abigail Mendez HPI 13 wk OB Details: LOLA [...] done, reocm (more content not included)... Normal [facility] Absolute lymphocyte countOrd ered By: Marina Taylor on 01-16-2025 Lymphocytes Auto (Unsp spec) [#/Vol] 1.60 10*3/uL 0.83-4.51 [facility] Absolute neutrophil countOrd ered By: Marina Taylor on 01-16-2025 Neutrophils (Bld) [#/Vol] 4.1 10*3/uL 2.0-7.7 [facility] Automated lymphocyte count a s percentage of total leukocytesOrdered By: Marina Orville on 01-16-2025 Lymphocytes/100 WBC Auto (Unsp spec) 24.3 % 19-41 [facility] Basophil percentageOrdered B y: Marina Orville on 01-16-2025 Basophils/100 WBC (Bld) 0.5 % 0-1 [facility] CBC W/Diff, Automatedon 12-28 Absolute Lymph 1.60 X10 3/uL Normal 0.83-4.51 [facility] Comment on above: Performed By: #### L 100.0100, L900.0098, L3890.6006, L3890.6102, L509.8002, L509.4006, BTS, L3890.6301 #### [facility] Laboratory [address] [place], [address] Absolute Neut 4.1 X10 3/uL Normal 2.0-7.7 [facility] Comment on above: Performed By: #### L 100.0100, L900.0098, L3890.6006, L3890.6102, L509.8002, L509.4006, BTS, L3890.6301 #### [facility] [address] [place], [address] Basophils/100 WBC (Bld) 0.5 % Normal 0-1 [facility] Comment on above: Performed By: #### L 100.0100, L900.0098, L3890.6006, L3890.6102, L509.8002, L509.4006, BTS, L3890.6301 #### [facility] [address] [place], [address] Eosinophils/100 WBC (Bld) 6.8 % High 0-5 [facility] Comment on above: Performed By: #### L 100.0100, L900.0098, L3890.6006, L3890.6102, L509.8002, L509.4006, BTS, L3890.6301 #### [facility] [address] [place], [address] Erythrocyte distribution width (RBC) [Ratio] 12.9 % Normal 11.6-14.6 [facility] Comment on above: Performed By: #### L 100.0100, L900.0098, L3890.6006, L3890.6102, L509.8002, L509.4006, BTS, L3890.6301 #### [facility] [address] [place], [address] Hematocrit (Bld) [Volume fraction] 37.6 % Normal 37-47 [facility] Comment on above: Performed By: #### L 100.0100, L900.0098, L3890.6006, L3890.6102, L509.8002, L509.4006, BTS, L3890.6301 #### [facility] [address] [place], [address] Hemoglobin (Bld) [Mass/Vol] 12.6 g/dL Normal 12.0-15.0 [facility] Comment on above: Performed By: #### L 100.0100, L900.0098, L3890.6006, L3890.6102, L509.8002, L509.4006, BTS, L3890.6301 #### [facility] [address] [place], [address] IG% 0.500 Normal 0.0-0.9 [facility] Comment on above: Result Comment: IG% - Immature Granulocytes (promyelocytes, myelocytes and metamyelocytes) > 1% indicates that a LEFT SHIFT is Present. Performed By: #### L 100.0100, L900.0098, L3890.6006, L3890.6102, L509.8002, L509.4006, BTS, L3890.6301 #### [facility] [address] [place], [address] Lymphocytes/100 WBC (Bld) 24.3 % Normal 19-41 [facility] Comment on above: Performed By: #### L 100.0100, L900.0098, L3890.6006, L3890.6102, L509.8002, L509.4006, BTS, L3890.6301 #### [facility] [address] [place], [address] MCH (RBC) [Entitic mass] 29.9 pg Normal 27.0-32.0 [facility] Comment on above: Performed By: #### L 100.0100, L900.0098, L3890.6006, L3890.6102, L509.8002, L509.4006, BTS, L3890.6301 #### [facility] [address] [place], [address] MCHC (RBC) [Mass/Vol] 33.5 g/dL Normal 32-36 [facility] Comment on above: Performed By: #### L 100.0100, L900.0098, L3890.6006, L3890.6102, L509.8002, L509.4006, BTS, L3890.6301 #### [facility] [address] [place], [address] MCV (RBC) [Entitic vol] 89.3 fL Normal 81-99 [facility] Comment on above: Performed By: #### L 100.0100, L900.0098, L3890.6006, L3890.6102, L509.8002, L509.4006, BTS, L3890.6301 #### [facility] [address] [place], [address] Monocytes/100 WBC (Bld) 5.5 % Normal 0-10 [facility] Comment on above: Performed By: #### L 100.0100, L900.0098, L3890.6006, L3890.6102, L509.8002, L509.4006, BTS, L3890.6301 #### [facility] [address] [place], [address] Neutrophils/100 WBC (Bld) 62.4 % Normal 47-70 [facility] Comment on above: Performed By: #### L 100.0100, L900.0098, L3890.6006, L3890.6102, L509.8002, L509.4006, BTS, L3890.6301 #### [facility] [address] [place], [address] Nucleated RBC (Bld) [#/Vol] 0 10*3/uL Normal 0-5 [facility] Comment on above: Performed By: #### L 100.0100, L900.0098, L3890.6006, L3890.6102, L509.8002, L509.4006, BTS, L3890.6301 #### [facility] [address] [place], [address] Platelet mean volume (Bld) [Entitic vol] 10.1 fL Normal 6.2-12.0 [facility] Comment on above: Performed By: #### L 100.0100, L900.0098, L3890.6006, L3890.6102, L509.8002, L509.4006, BTS, L3890.6301 #### [facility] [address] [place], [address] Platelets (Bld) [#/Vol] 250 10*3/uL Normal 150-450 [facility] Comment on above: Performed By: #### L 100.0100, L900.0098, L3890.6006, L3890.6102, L509.8002, L509.4006, BTS, L3890.6301 #### [facility] [address] [place], [address] RBC (Bld) [#/Vol] 4.21 10*6/uL Normal 4.2-5.4 [facility] Comment on above: Performed By: #### L 100.0100, L900.0098, L3890.6006, L3890.6102, L509.8002, L509.4006, BTS, L3890.6301 #### [facility] [address] [place], [address] RDW SD 42.3 fl Normal 35.1-43.9 [facility] Comment on above: Performed By: #### L 100.0100, L900.0098, L3890.6006, L3890.6102, L509.8002, L509.4006, BTS, L3890.6301 #### [facility] [address] [place], [address] WBC (Bld) [#/Vol] 6.6 10*3/uL Normal 4.4-11.0 [facility] Comment on above: Performed By: #### L 100.0100, L900.0098, L3890.6006, L3890.6102, L509.8002, L509.4006, BTS, L3890.6301 #### [facility] [address] [place], [address] Eosinophil percentageOrdered By: Marina Taylor on 01-16-2025 Eosinophils/100 WBC (Bld) 6.8 % High 0-5 [facility] Erythrocyte distribution wid th ratioOrdered By: Marina Tayolr on 01-16-2025 Erythrocyte distribution width (RBC) [Ratio] 12.9 % 11.6-14.6 [facility] Erythrocyte distribution wid th standard deviationOrdered By: Marina Taylor on 01-16-2025 Erythrocyte distribution width (RBC) [Ratio] 42.3 fl 35.1-43.9 [facility] HIVon 01-16-2025 HIV Non-Reactive Normal Nonreactive [facility] Comment on above: Result Comment: Non- Reactive Reactive Repeatedly reactive samples must be confirmed according to CDC recommended confirmatory algorithms. The subresults for either HIVAG or AHIV can be used as an aid in the selection of the confirmation algorithm for reactive samples. Send out specimens with Reactive results to [facility] for confirmation. Order the HIV antibody detection and differentiation: lc#[id number] Performed By: #### L 100.0100, L900.0098, L3890.6006, L3890.6102, L509.8002, L509.4006, BTS, L3890.6301 ####[facility] [address] [place], [address] Hematocrit Auto (Bld) [Volum e fraction]Ordered By: Marina Taylro on 01-16-2025 Hematocrit (Bld) [Volume fraction] 37.6 % 37-47 [facility] Hemoglobin measurementOrdere d By: Marina Taylor on 01-16-2025 Hemoglobin (Bld) [Mass/Vol] 12.6 g/dL 12.0-15.0 [facility] Hepatitis C Antibodyon 01-16 Hepatitis C Ab Non-Reactive Normal Nonreactive [facility] Comment on above: Result Comment: Reac tive: Presumptive evidence of antibodies to HCV. Follow CDC recommendations for supplemental testing. Non-Reactive: Antibodies to HCV were not detected; does not exclude the possibility of exposure to HCV Reactive Results are presumptive evidence of antibodies to HCV. Follow CDC recommendations for supplemental testing. Order confirmation testing: HCV Quant by PCR testing - HCVPCR lc#[id number] Non Reactive: < 0.8 Equivocal: >/= 0.8 to < 1.0 Reactive: >/= 1.0 The CDC requires that a reactive/equivocal HCV antibody result be sent out for confirmation. HCV Quant by PCR testing. Performed By: #### L 100.0100, L900.0098, L3890.6006, L3890.6102, L509.8002, L509.4006, BTS, L3890.6301 ####[facility] [address] [place], [address] Immature granulocytes/100 WB C Auto (Bld)Ordered By: Mairna Taylor on 01-16-2025 Immature granulocytes/100 WBC (Bld) 0.500 % 0.0-0.9 [facility] Comment on above: IG% - Immature Granu locytes (promyelocytes, myelocytes and metamyelocytes) > 1% indicates that a LEFT SHIFT is Present. L3890.6102on 01-16-2025 HEP B Surf Ag Non-Reactive Normal Nonreactive [facility] Comment on above: Result Comment: Reac tive: Presumptive evidence of HBV. Repeatedly reactive samples must be confirmed using a neutralization test ([employer] HBsAg Confirmatory Test) Non-Reactive: HBsAg not detected; does not exclude the possibility of exposure to HBV Performed By: #### L 100.0100, L900.0098, L3890.6006, L3890.6102, L509.8002, L509.4006, BTS, L3890.6301 ####[facility] [address] [place], [address] L509.4006on 01-16-2025 Rubella IgG REAC Normal Nonreactive [facility] Comment on above: Result Comment: Anti body Result: Interpretation Non-Reactive: Non-Immune Reactive: Immune The following results were obtained with the [employer] Rubella IgG assay. Results from assays of other manufacturers cannot be used interchangeably. Performed By: #### L 100.0100, L900.0098, L3890.6006, L3890.6102, L509.8002, L509.4006, BTS, L3890.6301 #### [facility] [address] [place], [place], [id number] Laboratory - Microbiology an d Antimicrobial susceptibilityOrdered By: Marina Taylor on 01-16-2025 HBV surface Ag Ql (S) Non-Reactive Nonreactive [facility] Comment on above: Reactive: Presumptiv e evidence of HBV. Repeatedly reactive samples must be confirmed using a neutralization test ([employer]-Doorss HBsAg Confirmatory Test)Non-Reactive: HBsAg not detected; does not exclude the possibility of exposure to HBV MCV (mean corpuscular volume ) determinationOrdered By: Marina Taylor on 01-16-2025 MCV (RBC) [Entitic vol] 89.3 fL 81-99 [facility] Mean corpuscular hemoglobin (MCH) determinationOrdered By: Marina Taylor on 01-16-2025 MCH (RBC) [Entitic mass] 29.9 pg 27.0-32.0 [facility] Mean corpuscular hemoglobin concentration (MCHC) determinationOrdered By: Marina Taylor on 01-16-2025 MCHC (RBC) [Mass/Vol] 33.5 g/dL 32-36 [facility] Mean platelet volume determi nationOrdered By: Marina Taylor on 01-16-2025 Platelet mean volume (Bld) [Entitic vol] 10.1 fL 6.2-12.0 [facility] Monocyte percentageOrdered B y: Marina Taylor on 01-16-2025 Monocytes/100 WBC (Bld) 5.5 % 0-10 [facility] NATERAon 01-16-2025 NATURA SEE SCANNED REPORT Normal [facility] Comment on above: Performed By: #### L 100.0100, L900.0098, L3890.6006, L3890.6102, L509.8002, L509.4006, BTS, L3890.6301 #### [facility] Laboratory [address] [place], [address] Neutrophil percentageOrdered By: Marina Taylor on 01-16-2025 Neutrophils/100 WBC (Bld) 62.4 % 47-70 [facility] No Panel InformationOrdered By: Marina Taylor on 01-16-2025 HIV (1&2) Antibody Non-Reactive Nonreactive [facility] Comment on above: Non-ReactiveReactive Repeatedly reactive samples must be confirmed according to CDC recommended confirmatory algorithms. The subresults for either HIVAG or AHIV can be used as an aid in the selection of the confirmation algorithm for reactive samples.Send out specimens with Reactive results to [facility] for confirmation.Order the HIV antibody detection and differentiation: #[id number] Nucleated red blood cell per centageOrdered By: Marina Taylor on 01-16-2025 Nucleated RBC/100 WBC (Bld) [Ratio] 0 % 0-5 [facility] Platelet countOrdered By: Claude Taylor on 01-16-2025 Platelets (Bld) [#/Vol] 250 10*3/uL 150-450 [facility] RBC Auto (Bld) [#/Vol]Ordere d By: Marina Taylor on 01-16-2025 RBC (Bld) [#/Vol] 4.21 10*6/uL 4.2-5.4 [facility] Syphilis Antibodieson 2024 Syphilis Abs Non-Reactive Normal Nonreactive [facility] Comment on above: Performed By: #### L 100.0100, L900.0098, L3890.6006, L3890.6102, L509.8002, L509.4006, BTS, L3890.6301 ####[facility] [address] [place], [address] Type AND Screenon 01-16-2025 Ab SCREEN GEL Negative Normal [facility] Comment on above: Order Comment: PN Performed By: #### L 100.0100, L900.0098, L3890.6006, L3890.6102, L509.8002, L509.4006, BTS, L3890.6301 #### [facility] [address] [place], [address] White blood cell (WBC) count Ordered By: Marina Taylor on 01-16-2025 WBC (Bld) [#/Vol] 6.6 10*3/uL 4.4-11.0 [facility] PAP IG HPV APTIMA 16/18,45on 01-13-2025 ADEQ Comment Normal . [facility] Comment on above: Order Comment: Speci men Comment: [id number] Specimen Comment: No. of containers..01 ThinPrep Vial Result Comment: Sati sfactory for evaluation. Endocervical and/or squamous metaplastic cells (endocervical component) are present. Performed By: #### L 7000.1800, M100.2200, L7400.0280 #### [facility] [address] [place], [place], [address] COMM . Normal . [facility] Comment on above: Order Comment: Speci men Comment: [id number] Specimen Comment: No. of containers..01 ThinPrep Vial Performed By: #### L 7000.1800, M100.2200, L7400.0280 #### [facility] [address] [place], [place], [address] COMMENT Comment Normal . [facility] Comment on above: Order Comment: Speci men Comment: [id number] Specimen Comment: No. of containers..01 ThinPrep Vial Result Comment: This liquid based ThinPrep(R) pap test was screened with the use of an image guided system. Performed By: #### L 7000.1800, M100.2200, L7400.0280 #### [facility] [address] [place], [place], [id number] DIAG Comment Normal . [facility] Comment on above: Order Comment: Speci men Comment: [id number] Specimen Comment: No. of containers..01 ThinPrep Vial Result Comment: NEGA TIVE FOR INTRAEPITHELIAL LESION OR MALIGNANCY. Performed By: #### L 7000.1800, M100.2200, L7400.0280 #### [facility] [address] [place], [place], [address] HPV APTIMA, HR Negative Normal Negative [facility] Comment on above: Order Comment: Speci men Comment: [id number] Specimen Comment: No. of containers..01 ThinPrep Vial Result Comment: This nucleic acid amplification test detects fourteen high- risk HPV types (16,18,31,33,35,39,45,51,52,56,58,59,66,68) without differentiation. Performed By: #### L 7000.1800, M100.2200, L7400.0280 #### [facility] [address] [place], [place], [address] HPV Rhina Rfx Comment Normal . [facility] Comment on above: Order Comment: Speci men Comment: [id number] Specimen Comment: No. of containers..01 ThinPrep Vial Result Comment: Crit chinedu not met, HPV Genotype not performed. Performed at: [facility] Cyto Histo [address] [place] [id number] Rub[employer] Factory Worker: Danny Cabrera MD, Phone: [phone] Performed at: - [address] [id number] [employer] Factory Worker: Valencia Vásquez MD, Phone: [phone] Performed at: = - [address] [id number] [employer] Worker: Valencia Vásquez MD, Phone: [phone] Performed By: #### L 7000.1800, M100.2200, L7400.0280 #### [facility] [address] [place], [place], [id number] PAPSMR Comment Normal . [facility] Comment on above: Order Comment: Speci men Comment: [id number] Specimen Comment: No. of containers..01 ThinPrep Vial [...] By: #### L 7000.1800, M100.2200, L7400.0280 #### [facility] [address] [place], [address] PERFORM Comment Normal . [facility] Comment on above: Order Comment: Speci men Comment: [id number] Specimen Comment: No. of containers..01 ThinPrep Vial Result Comment: Melany Mendoza, Java Swing Developer (ASCP) Performed By: #### L 7000.1800, M100.2200, L7400.0280 #### [facility] [address] [place], [address] Urine Cultureon 01-10-2025 [facility] Urine Culture Urine Culture Mixed Gram Positive Organisms [place] Count 25,000-50,000 MIXC Mixed contaminants. Submit a new specimen if indicated. Normal [facility] Comment on above: Performed By: #### L 7000.1800, M100.2200, L7400.0280 #### [facility] [address] [place], [address] Chlamydia/GC MACK aptimaon CHLAMY,NUC ACID Negative Normal Negative [facility] Comment on above: Performed By: #### L 7000.1800, M100.2200, L7400.0280 #### [facility] [address] [place], [address] GC BY NUC ACID Negative Normal Negative [facility] Comment on above: Result Comment: Perf ormed at: =G - [facility] [address] [id number] [employer] Factory Worker: Valencia Vásquez MD, Phone: [phone] Performed By: #### L 7000.1800, M100.2200, L7400.0280 #### [facility] [address] [place], [address] Cervical or vaginal specimen microscopic examination by liquid based cytology (reportOrdered By: Marina Taylor on 01-06-2025 Cytology report Cyto stain.thin prep Doc (Cvx/Vag) Comment . [facility] Comment on above: Criteria not met, HP V Genotype not performed.Performed at: [facility] [address] [place], [place] [id number] Director: Danny Cabrera MD, Phone: [phone] at: - [address] [id number] Director: Valencia Vásquez MD, Phone: [phone] at: = - [facility] [id number] Director: Valencia Vásquez MD, Phone: [phone] Cervical or vagninal specime n microscopic examination by cytology stain (reported asOrdered By: Marina Taylor on 01-06-2025 Cytology report Cyto stain Doc (Cvx/Vag) Comment . [facility] Comment on above: The Pap smear is a s creening test designed to aid in thedetection of premalignant and malignant conditions of theuterine cervix. It is not a diagnostic procedure andshould not be used as the sole means of detecting cervicalcancer. Both false-positive and false-negative reports dooccur. Chlamydia trachomatis rRNA d etection by probe and target amplification methodOrdered By: Marina Taylor on 01-06-2025 C. trachomatis rRNA MACK+probe Ql (Unsp spec) Negative Negative [facility] Detection in cervical specim en of any of human papilloma virus (HPV) 16, 18, 31, 33,Ordered By: Marina Taylor on 01-06-2025 HPV 16+18+31+33+35+39+45+51+5 2+56+58+59+66+68 DNA Probe+sig amp Ql (Cvx) Negative Negative [facility] Comment on above: This nucleic acid am plification test detects fourteen high-risk HPV types (16,18,31,33,35,39,45,51,52,56,58,59,66,68)without differentiation. Laboratory - CytologyOrdered By: Marina Taylor on 01-06-2025 Java Swing Developer Cyto stain Nom (Cvx/Vag) [ID] Comment . [facility] Comment on above: Betty Mendoza, Cyto logist (ASCP) Laboratory - Miscellaneous t estsOrdered By: Marina Taylor on 01-06-2025 Service comment (Unsp spec) [Interp] . . [facility] Neisseria gonorrhoeae nuclei c acid detection by amplified probe techniqueOrdered By: Marina Taylor on 01-06-2025 N. gonorrhoeae DNA MACK+probe Ql (Unsp spec) Negative Negative [facility] Comment on above: Performed at: =[address] [id number] Director: Valencia Vásquez MD, Phone: [phone] No Panel InformationOrdered By: Marina Taylor on 01-06-2025 Pap Smear Specimen Adequacy Comment . [facility] Comment on above: Satisfactory for hardy luation. Endocervical and/or squamous metaplasticcells (endocervical component) are present. Playroom Attendant Office Visit Reporton 01-06-2025 Playroom Attendant Office Visit Report [facility]'s [address], [address] [place] [address] OFFICE VISIT Date of Service: 01/06/25 MR#: [id number] Acct: [id number] Name: LOLA PEREZ Rep #: [id number] : 1995 Provider: PAULINO Kaplan ams Age/Sex: 29/F Location[place] [facility] [place] Status: Signed Intake Vital Signs 12/13/24 14:03 01/06/25 12:59 Height 5 ft 2 in 5 ft 2 in Weight: 121 lb 2 oz BMI 22.1 BP 106/69 Intake Visit Reasons: *NEW* NOB LMP 5, DONALD 08/09 Chief Complaint: New OB Ehr Trainer Required: No Is patient in pain?: No [...] 1 current occupational status: employed current occupation: [employer] 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) [...] physical activity do you participate in: none chung/zoroastrianism: None seatbelt use: always do you feel safe at home: Yes 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 Normal [facility] Urine cultureOrdered By: Jae Taylor on 01-06-2025 Bacteria identified Cx Nom (U) Positive Abnormal [facility] Laboratory - Chemistry and C hemistry - challengeOrdered By: Patria Dooley on 12-13-2024 HCG ( test) Ql (U) Positive [facility] Playroom Attendant Office Visit Reporton 12-13-2024 Playroom Attendant Office Visit Report [facility]'s [address], [address] [place] [address] OFFICE VISIT Date of Service: 12/13/24 MR#: [id number] Acct: [id number] Name: LOLA PEREZ Rep #: [id number] : 1995 Provider: VINEET Jarquin Age/Sex: 29/F Location[place] [facility] [place] Status: Signed Intake Vital Signs 12/13/24 14:03 Height 5 ft 2 in Weight: 121 lb 2 oz BMI 22.1 BP 92/59 L Intake Visit Reasons: Confirm , est care Chief Complaint: Urine preg.- confirm preg. Ehr Trainer Required: No Is patient in pain?: No [...] concerns before NOB visit. Patient voices understanding. 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 RTO as scheduled for New OB Orders: Orders POC Urine Today N91.2 - Amenorrhea, unspecified 12/13/24 1430 Date Patria Dooley NP-C Haile Signature: Date (if applicable) CC: Normal [facility] Basic Metabolic Panelon 04-0 Calcium [Mass/Vol] 8.4 mg/dL Normal 8.4-10.4 [facility] Comment on above: Performed By: #### A HUMERA #### [facility] [address] [place] [address] [facility] #### ABSGL #### [facility] [address] [place] [address] Glucose [Mass/Vol] 104 mg/dL High 70-100 [facility] Comment on above: Performed By: #### A HUMERA #### [facility] [address] [place] [address] [facility] #### ABSGL #### [facility] [address] [place] [address] Anion gap [Moles/Vol] 3 mmol/L Normal 3-13 [facility] Comment on above: Performed By: #### A HUMERA #### [facility] [address] [place] [address] [facility] #### ABSGL #### [facility] [address] [place] [address] CO2 [Moles/Vol] 21 mmol/L Low 22-30 [facility] Comment on above: Performed By: #### A HUMERA #### [facility] [address] [place] [address] [facility] #### ABSGL #### [facility] [address] [place] [address] Creatinine [Mass/Vol] 0.60 mg/dL Normal 0.52-1.25 [facility] Comment on above: Performed By: #### A HUMERA #### [facility] [address] [place] [address] [facility] #### ABSGL #### [facility] [address] [place] [address] GFR/1.73 sq M predicted among blacks MDRD (S/P/Bld) [Vol rate/Area] mL/min/{1.73_m2} Normal >60 [facility] Comment on above: Performed By: #### A HUMERA #### [facility] [address] [place] [address] [facility] #### ABSGL #### [facility] [address] [place] [address] GFR/1.73 sq M predicted among non-blacks MDRD (S/P/Bld) [Vol rate/Area] mL/min/{1.73_m2} Normal >60 [facility] Comment on above: Result Comment: KDIG [...] secretion. Performed By: #### A HUMERA #### [address] #### ABSGL #### [address] [place] [address] Urea nitrogen [Mass/Vol] 9 mg/dL Normal 7-20 [facility] Comment on above: Performed By: #### A HUMERA #### [facility] [address] [place] [address] [facility] #### ABSGL #### [address] [place] [address] Chloride [Moles/Vol] 109 mmol/L High 98-107 [facility] Comment on above: Performed By: #### A HUMERA #### [facility] [address] [place] [address] [facility] #### ABSGL #### [address] [place] [address] Potassium [Moles/Vol] 3.6 mmol/L Normal 3.5-5.1 [facility] Comment on above: Performed By: #### A HUMERA #### [facility] [address] [place], [place] [address] [place] [address] #### ABSGL #### [facility] [address] [place] [address] Sodium [Moles/Vol] 133 mmol/L Low 135-145 [facility] Comment on above: Performed By: #### A HUMERA #### [facility] [address] [place] [address] [facility] #### ABSGL #### [facility] [address] [place] [address] CBCon 10-05-2020 Hematocrit (Bld) [Volume fraction] 25.3 % Low 35.0 - 47.0 % [facility] Work Phone: 22 Hemoglobin.gastrointestin al spec 1 Ql (Stl) 8.5 g/dL Low 11.7 - 16.0 g/dL [facility] Work Phone: Interpretation and review of laboratory results Abnormal [facility] Work Phone: MCH (RBC) [Entitic mass] 31.7 pg 26.0 - 34.0 pg [facility] Work Phone: MCHC (RBC) [Mass/Vol] 33.6 % 32.0 - 36.0 % [facility] Work Phone: MCV (RBC) [Entitic vol] 94.4 fL 79.0 - 98.0 fL [facility] Work Phone: Platelet distribution width (Bld) [Ratio] 14.0 % 11.5 - 14.5 % [facility] Work Phone: Platelet mean volume (Bld) [Entitic vol] 7.8 fL 7.4 - 10.4 fL [facility] Work Phone: Platelets (Bld) [#/Vol] 140 10*3/uL 140 - 440 10*3/uL [facility] Work Phone: RBC (Bld) [#/Vol] 2.68 10*6/uL Low 3.80 - 5.2 0 10*6/uL [facility] Work Phone: WBC (Bld) [#/Vol] 20.3 10*3/uL High 3.6 - 10.7 10*3/uL [facility] Work Phone: Test Performed by [facility], [address] [facility] [address] [facility]. [place], [place] [address] [facility] Work Phone: Hemogramon 10-05-2020 Erythrocyte distribution width (RBC) [Ratio] 14.0 % Normal 11.5-14.5 [facility] Comment on above: Performed By: #### A HUMERA #### [facility] [address] [place], [place] [address] [place] [address] #### ABSGL #### [facility] [address] [place] [address] Hematocrit (Bld) [Volume fraction] 25.3 % Low 35.0-47.0 [facility] Comment on above: Performed By: #### A HUMERA #### [facility] [address] [place], [place] [address] [place] [address] #### ABSGL #### [facility] [address] [place] [address] Hemoglobin (Bld) [Mass/Vol] 8.5 g/dL Low 11.7-16.0 [facility] Comment on above: Performed By: #### A HUMERA #### [facility] [address] [place] [address] [facility] #### ABSGL #### [facility] [address] [place] [address] MCH (RBC) [Entitic mass] 31.7 pg Normal 26.0-34.0 [facility] Comment on above: Performed By: #### A HUMERA #### [facility] [address] [place] [address] [facility] #### ABSGL #### [facility] [address] [place] [address] MCHC (RBC) [Mass/Vol] 33.6 % Normal 32.0-36.0 [facility] Comment on above: Performed By: #### Misa GRUBBS #### [facility] [address] [place] [address] [facility] #### ABSGL #### [facility] [address] [place] [address] MCV (RBC) [Entitic vol] 94.4 fL Normal 79.0-98.0 [facility] Comment on above: Performed By: #### Misa GRUBBS #### [facility] [address] [place] [address] [facility] #### ABSGL #### [facility] [address] [place] [address] Platelet mean volume (Bld) [Entitic vol] 7.8 fL Normal 7.4-10.4 [facility] Comment on above: Performed By: #### Misa GRUBBS #### [facility] [address] [place] [address] [facility] #### ABSGL #### [facility] [address] [place] [address] Platelets (Bld) [#/Vol] 140 10*3/uL Normal 140-440 [facility] Comment on above: Performed By: #### Misa GRUBBS #### [facility] [address] [place] [address] [facility] #### ABSGL #### [facility] [address] [place] [address] RBC (Bld) [#/Vol] 2.68 10*6/uL Low 3.80-5.20 [facility] Comment on above: Performed By: #### Misa GRUBBS #### [facility] [address] [place] [address] [facility] #### ABSGL #### [facility] [address] [place] [address] WBC (Bld) [#/Vol] 20.3 10*3/uL High 3.6-10.7 [facility] Comment on above: Performed By: #### Misa GRUBBS #### [facility] [address] [place], [place] [address] [place] [address] #### ABSGL #### [facility] [address] [place] [address] Hemogram w/ Autodiffon 10-05 Abs Baso Cnt 0.0 10*3/uL Normal 0.0-0.2 [facility] Comment on above: Performed By: #### A HUMERA #### [facility] [address] [place], [place] [address] [place] [address] #### ABSGL #### [facility] [address] [place] [address] Abs Neutrophile Cnt 14.7 10*3/uL High 1.8-7.0 [facility] Comment on above: Performed By: #### A HUMERA #### [facility] [address] [place], [place] [address] [place] [address] #### ABSGL #### [facility] [address] [place] [address] Basophils/100 WBC (Bld) 0.2 % Normal 0.0-2.0 [facility] Comment on above: Performed By: #### A HUMERA #### [facility] [address] [place], [place] [address] [place] [address] #### ABSGL #### [facility] [address] [place] [address] Eosinophils (Bld) [#/Vol] 0.0 10*3/uL Normal 0.0-0.5 [facility] Comment on above: Performed By: #### A HUMERA #### [facility] [address] [place], [place] [address] [place] [address] #### ABSGL #### [facility] [address] [place] [address] Eosinophils/100 WBC (Bld) 0.2 % Low 1.0-6.0 [facility] Comment on above: Performed By: #### A HUMERA #### [facility] [address] #### ABSGL #### [facility] [address] [place] [address] Erythrocyte distribution width (RBC) [Ratio] 14.0 % Normal 11.5-14.5 [facility] Comment on above: Performed By: #### A HUMERA #### [facility] [address] [place] [address] [facility] #### ABSGL #### [facility] [address] [place] [address] Granulocytes/100 WBC (Bld) 89.5 % High 40.0-80.0 [facility] Comment on above: Performed By: #### A HUMERA #### [facility] [address] [place] [address] [facility] #### ABSGL #### [facility] [address] [place] [address] Hematocrit (Bld) [Volume fraction] 24.3 % Low 35.0-47.0 [facility] Comment on above: Performed By: #### A HUMERA #### [facility] [address] [place] [address] [facility] #### ABSGL #### [facility] [address] [place] [address] Hemoglobin (Bld) [Mass/Vol] 8.4 g/dL Low 11.7-16.0 [facility] Comment on above: Performed By: #### A HUMERA #### [facility] [address] [place] [address] [facility] #### ABSGL #### [facility] [address] [place] [address] Lymphocytes (Bld) [#/Vol] 0.6 10*3/uL Low 1.0-4.3 [facility] Comment on above: Performed By: #### A HUMERA #### [facility] [address] [place] [address] [facility] #### ABSGL #### [facility] [address] [place] [address] Lymphocytes/100 WBC (Bld) 3.9 % Low 20.0-40.0 [facility] Comment on above: Performed By: #### A HUMERA #### [facility] [address] #### ABSGL #### [facility] [address] [place] [address] MCH (RBC) [Entitic mass] 32.1 pg Normal 26.0-34.0 [facility] Comment on above: Performed By: #### A HUMERA #### [facility] [address] #### ABSGL #### [facility] [address] [place] [address] MCHC (RBC) [Mass/Vol] 34.5 % Normal 32.0-36.0 [facility] Comment on above: Performed By: #### A HUMERA #### [facility] [address] #### ABSGL #### [facility] [address] [place] [address] MCV (RBC) [Entitic vol] 93.0 fL Normal 79.0-98.0 [facility] Comment on above: Performed By: #### A HUMERA #### [facility] [address] #### ABSGL #### [facility] [address] [place] [address] Monocytes (Bld) [#/Vol] 1.0 10*3/uL High 0.0-0.8 [facility] Comment on above: Performed By: #### A HUMERA #### [facility] [address] #### ABSGL #### [facility] [address] [place] [address] Monocytes/100 WBC (Bld) 6.2 % Normal 2.0-10.0 [facility] Comment on above: Performed By: #### A RAULH #### [facility] [address] [place] [address] [facility] #### ABSGL #### [facility] [address] [place] [address] Platelet mean volume (Bld) [Entitic vol] 8.0 fL Normal 7.4-10.4 [facility] Comment on above: Performed By: #### Misa GRUBBS #### [facility] [address] [place] [address] [facility] #### ABSGL #### [facility] [address] [place] [address] Platelets (Bld) [#/Vol] 142 10*3/uL Normal 140-440 [facility] Comment on above: Performed By: #### Misa GRUBBS #### [facility] [address] [place] [address] [facility] #### ABSGL #### [facility] [address] [place] [address] RBC (Bld) [#/Vol] 2.61 10*6/uL Low 3.80-5.20 [facility] Comment on above: Performed By: #### Misa GRUBBS #### [facility] [address] [place] [address] [facility] #### ABSGL #### [facility] [address] [place] [address] WBC (Bld) [#/Vol] 16.4 10*3/uL High 3.6-10.7 [facility] Comment on above: Performed By: #### Misa GRUBBS #### [facility] [address] [place] [address] [facility] #### ABSGL #### [facility] [address] [place] [address] Lactic Acidon 10-05-2020 Lactate [Moles/Vol] 1.6 mmol/L Normal 0.7-2.0 [facility] Comment on above: Performed By: #### Misa GRUBBS #### [facility] [address] [place] [address] [facility] #### ABSGL #### [facility] [address] [place] [address] BASIC METABOLIC PANELon 04-0 Anion gap [Moles/Vol] 3 mmol/L 3 - 13 mmol/L [facility] Work Phone: Calcium [Mass/Vol] 8.4 mg/dL 8.4 - 10. 4 mg/dL [facility] Work Phone: Chloride [Moles/Vol] 109 mmol/L High 98 - 10 7 mmol/L [facility] Work Phone: CO2 [Moles/Vol] 21 mmol/L Low 22 - 30 mmol/L [facility] Work Phone: Creatinine [Mass/Vol] 0.6 mg/dL 0.52 - 1.25 mg/dL [facility] Work Phone: EGFR IF NonAfrican [place] Islander >90.0 >60 mL/min [facility] Work Phone: Comment on above: KDIGO [...] - 100 mg/dL [facility] Work Phone: [phone] Potassium [Moles/Vol] 3.6 mmol/L 3.5 - 5.1 mmol/L [facility] Work Phone: Sodium [Moles/Vol] 133 mmol/L Low 135 - 145 mmol/L [facility] Work Phone: [phone] Urea nitrogen (BldV) [Mass/Vol] 9 mg/dL 7 - 20 mg/dL [facility] Work Phone: [phone] CBC WITH AUTO DIFFERENTIALon 10-04-2020 Absolute Baso # 0.0 10*3/uL 0.0 - 0.2 10*3/uL [facility] Work Phone: [phone] Absolute Neut # 14.7 10*3/uL High 1.8 - 7.0 10*3/uL [facility] Work Phone: [phone] Basophils/100 WBC (Bld) 0.2 % 0.0 - 2.0 % [facility] Work Phone: Eosinophils (Bld) [#/Vol] 0.0 10*3/uL 0. 0 - 0.5 10*3/uL [facility] Work Phone: Eosinophils/100 WBC (Bld) 0.2 % Low 1.0 - 6.0 % [facility] Work Phone: Granulocytes/100 WBC (Bld) 89.5 % High 40.0 - 80.0 % [facility] Work Phone: [phone] Hematocrit (Bld) [Volume fraction] 24.3 % Low 35.0 - 47.0 % [facility] Work Phone: 22 Hemoglobin.gastrointestin al spec 1 Ql (Stl) 8.4 g/dL Low 11.7 - 16.0 g/dL [facility] Work Phone: [phone] Lymphocytes (Bld) [#/Vol] 0.6 10*3/uL Low 1. 0 - 4.3 10*3/uL [facility] Work Phone: [phone] Lymphocytes/100 WBC (Bld) 3.9 % Low 20.0 - 40. 0 % [facility] Work Phone: [phone] MCH (RBC) [Entitic mass] 32.1 pg 26.0 - 34.0 pg [facility] Work Phone: 1 MCHC (RBC) [Mass/Vol] 34.5 % 32.0 - 36.0 % [facility] Work Phone: MCV (RBC) [Entitic vol] 93.0 fL 79.0 - 98.0 fL [facility] Work Phone: Monocytes (Bld) [#/Vol] 1.0 10*3/uL High 0.0 - 0.8 10*3/uL [facility] Work Phone: 1 Monocytes/100 WBC (Bld) 6.2 % 2.0 - 10.0 % [facility] Work Phone: Platelet distribution width (Bld) [Ratio] 14.0 % 11.5 - 14.5 % [facility] Work Phone: Platelet mean volume (Bld) [Entitic vol] 8.0 fL 7.4 - 10.4 fL [facility] Work Phone: Platelets (Bld) [#/Vol] 142 10*3/uL 140 - 440 10*3/uL [facility] Work Phone: RBC (Bld) [#/Vol] 2.61 10*6/uL Low 3.80 - 5.2 0 10*6/uL [facility] Work Phone: WBC (Bld) [#/Vol] 16.4 10*3/uL High 3.6 - 10.7 10*3/uL [facility] Work Phone: Lactic Acid, Plasmaon 2020 Lactate [Moles/Vol] 1.6 mmol/L 0.7 - 2. 0 mmol/L [facility] Work Phone: 1 Test Performed by [employer], [address] [place], [place] [address] [facility] Work Phone: 1 Otheron 10-04-2020 Interpretation and review of laboratory results Abnormal [facility] Work Phone: Test Performed by [employer], [address] Work Phone: Hemogramon 10-03-2020 Erythrocyte distribution width (RBC) [Ratio] 14.0 % Normal 11.5-14.5 [facility] Comment on above: Performed By: #### A HUMERA #### [facility] [address] [place] [address] [facility] #### ABSGL #### [facility] [address] [place] [address] Hematocrit (Bld) [Volume fraction] 36.9 % Normal 35.0-47.0 [facility] Comment on above: Performed By: #### A HUMERA #### [facility] [address] [place] [address] [facility] #### ABSGL #### [facility] [address] [place] [address] Hemoglobin (Bld) [Mass/Vol] 12.8 g/dL Normal 11.7-16.0 [facility] Comment on above: Performed By: #### A HUMERA #### [facility] [address] [place] [address] [facility] #### ABSGL #### [facility] [address] [place] [address] MCH (RBC) [Entitic mass] 31.8 pg Normal 26.0-34.0 [facility] Comment on above: Performed By: #### A HUMERA #### [facility] [address] [place] [address] [facility] #### ABSGL #### [facility] [address] [place] [address] MCHC (RBC) [Mass/Vol] 34.6 % Normal 32.0-36.0 [facility] Comment on above: Performed By: #### A HUMERA #### [facility] [address] [place] [address] [facility] #### ABSGL #### [facility] [address] [place] [address] MCV (RBC) [Entitic vol] 91.8 fL Normal 79.0-98.0 [facility] Comment on above: Performed By: #### Misa GRUBBS #### [facility] [address] [place] [address] [facility] #### ABSGL #### [facility] [address] [place] [address] Platelet mean volume (Bld) [Entitic vol] 8.3 fL Normal 7.4-10.4 [facility] Comment on above: Performed By: #### Misa GRUBBS #### [facility] [address] [place] [address] [facility] #### ABSGL #### [facility] [address] [place] [address] Platelets (Bld) [#/Vol] 219 10*3/uL Normal 140-440 [facility] Comment on above: Performed By: #### Misa GRUBBS #### [facility] [address] [place] [address] [facility] #### ABSGL #### [facility] [address] [place] [address] RBC (Bld) [#/Vol] 4.02 10*6/uL Normal 3.80-5.20 [facility] Comment on above: Performed By: ###Zofia GRUBBS #### [facility] [address] [place] [address] [facility] #### ABSGL #### [facility] [address] [place] [address] WBC (Bld) [#/Vol] 10.6 10*3/uL Normal 3.6-10.7 [facility] Comment on above: Performed By: #### Misa GRUBBS #### [facility] [address] [place] [address] [facility] #### ABSGL #### [facility] [address] [place] [address] TS GELon 10-03-2020 TS GEL [employer] Group: O Rh, Gel: POS Antibody Screen Gel: NEG Normal [facility] Comment on above: Performed By: #### T SGL ####[employer] CBCon 10-02-2020 Hematocrit (Bld) [Volume fraction] 36.9 % 35.0 - 47.0 % [employer] Work Phone: 1 Hemoglobin.gastrointestin al spec 1 Ql (Stl) 12.8 g/dL 11.7 - 16.0 g/dL [employer] Work Phone: 1) MCH (RBC) [Entitic mass] 31.8 pg 26.0 - 34.0 pg [employer] Work Phone: 1) MCHC (RBC) [Mass/Vol] 34.6 % 32.0 - 36.0 % [employer] Work Phone: 1) MCV (RBC) [Entitic vol] 91.8 fL 79.0 - 98.0 fL [employer] Work Phone: 1) Platelet distribution width (Bld) [Ratio] 14.0 % 11.5 - 14.5 % [employer] Work Phone: 1) Platelet mean volume (Bld) [Entitic vol] 8.3 fL 7.4 - 10.4 fL [employer] Work Phone: 1() Platelets (Bld) [#/Vol] 219 10*3/uL 140 - 440 10*3/uL [employer] Work Phone: 1) RBC (Bld) [#/Vol] 4.02 10*6/uL 3.80 - 5.2 0 10*6/uL [employer] Work Phone: 1) WBC (Bld) [#/Vol] 10.6 10*3/uL 3.6 - 10.7 10*3/uL [employer] Work Phone: 1) Test Performed by [employer], [address] [place] [address] Str. [place], [place] [address] [employer] Work Phone: TYPE AND SCREENon 10-02-2020 Sodium [Moles/Vol] O [employer] Work Phone: 1) Sodium [Moles/Vol] Positive [employer] Work Phone: [phone] Sodium [Moles/Vol] Negative [employer] Work Phone: Test Performed by [email or web address], [address], [place], [place] [address] [employer] Work Phone: CBC Auto Differentialon 06-30 Absolute Baso # 0.2 10*3/uL 0 - 0.2 10*3/uL [place], [place] Absolute Neut # 6.2 10*3/uL 1.8 - 7 10*3/uL [place], [place] Basophils/100 WBC (Bld) 1.9 % 0 - 2 % [place], [place] Eosinophils (Bld) [#/Vol] 0.1 10*3/uL 0 - 0.5 10*3/uL [place] Eosinophils/100 WBC (Bld) 1.5 % 1 - 6 % [place] Erythrocyte distribution width (RBC) [Ratio] 13.7 % 11.5 - 14.5 % [place] Granulocytes/100 WBC (Bld) 73.0 % 40 - 80 % [place] Hematocrit (Bld) [Volume fraction] 35.0 % 35 - 47 % [place] Hemoglobin (Bld) [Mass/Vol] 11.7 g/dL 11.7 - 16 g/dL [place] Interpretation and review of laboratory results Abnormal [place] Lymphocytes (Bld) [#/Vol] 1.3 10*3/uL 1 - 4.3 10*3/uL [place] Lymphocytes/100 WBC (Bld) 15.7 % Low 20 - 40 % [place] MCH (RBC) [Entitic mass] 31.1 pg 26 - 34 pg [place] MCHC (RBC) [Mass/Vol] 33.6 % 32 - 36 % [place] MCV (RBC) [Entitic vol] 92.6 fL 79 - 98 fL [place], [place] Monocytes (Bld) [#/Vol] 0.7 10*3/uL 0 - 0.8 10*3/uL [place] Monocytes/100 WBC (Bld) 7.9 % 2 - 10 % [place], [place] Platelet mean volume (Bld) [Entitic vol] 7.8 fL 7.4 - 10.4 fL [place] Platelets (Bld) [#/Vol] 191 10*3/uL 140 - 440 10*3/uL [place] RBC (Bld) [#/Vol] 3.78 10*6/uL Low 3.8 - 5.2 10*6/uL [place] WBC (Bld) [#/Vol] 8.5 10*3/uL 3.6 - 10.7 10*3/uL [place] Test Performed by [facility], [facility] [address] , [address] Glucose Challenge,1Hron 06-30 Glucose [Mass/Vol] 90 mg/dL Normal <140 [facility] Comment on above: Performed By: #### A HUMERA #### [facility] [address] #### ABSGL #### [address] [place] [address] Glucose tolerance, 1 houron 07-20-2020 Glucose [Mass/Vol] 90 mg/dL <140 [place], [place] Test Performed by [facility], [facility] [address] , [address] Hemogram w/ Autodiffon 07-20 Abs Baso Cnt 0.2 10*3/uL Normal 0.0-0.2 [facility] Comment on above: Performed By: #### A HUMERA #### [facility] [address] #### ABSGL #### [address] [place] [address] Abs Neutrophile Cnt 6.2 10*3/uL Normal 1.8-7.0 [facility] Comment on above: Performed By: #### A HUMERA #### [facility] [address] [place] [id number] [facility] #### ABSGL #### [facility] [address] [place] [address] Basophils/100 WBC (Bld) 1.9 % Normal 0.0-2.0 [facility] Comment on above: Performed By: #### A HUMERA #### [facility] [address] [place] [address] [facility] #### ABSGL #### [facility] [address] [place] [address] Eosinophils (Bld) [#/Vol] 0.1 10*3/uL Normal 0.0-0.5 [facility] Comment on above: Performed By: #### A HUMERA #### [facility] [address] [place] [address] [facility] #### ABSGL #### [facility] [address] [place] [address] Eosinophils/100 WBC (Bld) 1.5 % Normal 1.0-6.0 [facility] Comment on above: Performed By: #### A HUMERA #### [facility] [address] [place] [address] [facility] #### ABSGL #### [facility] [address] [place] [address] Erythrocyte distribution width (RBC) [Ratio] 13.7 % Normal 11.5-14.5 [facility] Comment on above: Performed By: #### A HUMERA #### [facility] [address] [place] [address] [facility] #### ABSGL #### [facility] [address] [place] [address] Granulocytes/100 WBC (Bld) 73.0 % Normal 40.0-80.0 [facility] Comment on above: Performed By: #### A HUMERA #### [facility] [address] [place] [address] [facility] #### ABSGL #### [facility] [address] [place] [address] Hematocrit (Bld) [Volume fraction] 35.0 % Normal 35.0-47.0 [facility] Comment on above: Performed By: #### A HUMERA #### [facility] [address] [place], [place] [address] [place] [address] #### ABSGL #### [facility] [address] [place] [address] Hemoglobin (Bld) [Mass/Vol] 11.7 g/dL Normal 11.7-16.0 [facility] Comment on above: Performed By: #### A HUMERA #### [facility] [address] [place], [place] [address] [place] [address] #### ABSGL #### [facility] [address] [place] [address] Lymphocytes (Bld) [#/Vol] 1.3 10*3/uL Normal 1.0-4.3 [facility] Comment on above: Performed By: #### A HUMERA #### [facility] [address] [place], [place] [address] [place] [address] #### ABSGL #### [facility] [address] [place] [address] Lymphocytes/100 WBC (Bld) 15.7 % Low 20.0-40.0 [facility] Comment on above: Performed By: #### A HUMERA #### [facility] [address] [place], [place] [address] [place] [address] #### ABSGL #### [facility] [address] [place] [address] MCH (RBC) [Entitic mass] 31.1 pg Normal 26.0-34.0 [facility] Comment on above: Performed By: #### A HUMERA #### [facility] [address] [place] [address] [facility] #### ABSGL #### [facility] [address] [place] [address] MCHC (RBC) [Mass/Vol] 33.6 % Normal 32.0-36.0 [facility] Comment on above: Performed By: #### A HUMERA #### [facility] [address] [place] [address] [facility] #### ABSGL #### [facility] [address] [place] [address] MCV (RBC) [Entitic vol] 92.6 fL Normal 79.0-98.0 [facility] Comment on above: Performed By: #### A HUMERA #### [facility] [address] [place] [address] [facility] #### ABSGL #### [facility] [address] [place] [address] Monocytes (Bld) [#/Vol] 0.7 10*3/uL Normal 0.0-0.8 [facility] Comment on above: Performed By: #### A HUMERA #### [facility] [address] [place], [place] [address] [place] [address] #### ABSGL #### [facility] [address] [place] [address] Monocytes/100 WBC (Bld) 7.9 % Normal 2.0-10.0 [facility] Comment on above: Performed By: #### Misa GRUBBS #### [facility] [address] [place], [place] [address] [place] [address] #### ABSGL #### [facility] [address] [place] [address] Platelet mean volume (Bld) [Entitic vol] 7.8 fL Normal 7.4-10.4 [facility] Comment on above: Performed By: #### A HUMERA #### [facility] [address] [place] [address] [facility] #### ABSGL #### [facility] [address] [place] [address] Platelets (Bld) [#/Vol] 191 10*3/uL Normal 140-440 [facility] Comment on above: Performed By: #### A HUMERA #### [facility] [address] [place], [place] [address] [place] [address] #### ABSGL #### [facility] [address] [place] [address] RBC (Bld) [#/Vol] 3.78 10*6/uL Low 3.80-5.20 [facility] Comment on above: Performed By: #### Misa GRUBBS #### [facility] [address] [place] [address] [facility] #### ABSGL #### [facility] [address] [place] [address] WBC (Bld) [#/Vol] 8.5 10*3/uL Normal 3.6-10.7 [facility] Comment on above: Performed By: #### Misa GRUBBS #### [facility] [address] [place], [place] [address] [place] [address] #### ABSGL #### [facility] [address] [place] [address] Hemoglobin Evaluationon 02-28 Erythrocyte Cnt 3.99 Mill/uL Normal 3.80-5.10 [facility] Comment on above: Performed By: #### H EPC, HBSAG, HIV4, RPR #### [facility] [address] [place] [address] #### HGBFO #### The performing lab is in the report. #### RUBG #### [facility] [address] [place] [address] #### HEMDF #### [facility] [address] [place] [address] Erythrocyte distribution width (RBC) [Ratio] 14.0 % Normal 11.0-15.0 [facility] Comment on above: Result Comment: Test Performed by Julianna Willis, [facility], [address] [place] [address] Joe Olivia M.D., Ph.D., Director of Laboratories , [place] [id number] Performed By: #### H EPC, HBSAG, HIV4, RPR #### [facility] [address] [place] [address] #### HGBFO #### The performing lab is in the report. #### RUBG #### [facility] [address] [place] [facility] [place] [address] #### HEMDF #### [facility] [address] [facility] [place] [address] Hemoglobin A 97.0 % Normal >96.0 [facility] Comment on above: Performed By: #### H EPC, HBSAG, HIV4, RPR #### [address] [address] #### HGBFO #### The performing lab is in the report. #### RUBG #### [place] [address] [place] [address] #### HEMDF #### [facility] [address] [facility] [place] [address] Hemoglobin A2 2.8 % Normal 1.8-3.5 [facility] Comment on above: Performed By: #### H EPC, HBSAG, HIV4, RPR #### [address] #### HGBFO #### The performing lab is in the report. #### RUBG #### [address] [place] [facility] [place] [address] #### HEMDF #### [facility] [address] [place] [address] Hemoglobin F 0.2 % Normal <2.0 [facility] Comment on above: Performed By: #### H EPC, HBSAG, HIV4, RPR #### [address] #### HGBFO #### The performing lab is in the report. #### RUBG #### [place] [address] [place] [address] #### HEMDF #### [facility] [address] [place] [address] Interpretation see below Normal [facility] Comment on above: Result Comment: NORM AL [...] and Hemoglobinopathy Comprehensive is available (Test code 32073). Test Performed by [facility], [facility], [address] [place] [address] Joe Olivia M.D., Ph.D., Director of Laboratories , [facility] [id number] Performed By: #### H EPC, HBSAG, HIV4, RPR #### [address] #### HGBFO #### The performing lab is in the report. #### RUBG #### [facility] [address] [place] [address] #### HEMDF #### [facility] [address] [facility] [place] [address] MCH (RBC) [Entitic mass] 31.1 pg Normal 27.0-33.0 [facility] Comment on above: Performed By: #### H EPC, HBSAG, HIV4, RPR #### [address] [address] #### HGBFO #### The performing lab is in the report. #### RUBG #### [facility] [address] [place] [address] #### HEMDF #### [facility] [address] [facility] [place] [address] MCV (RBC) [Entitic vol] 93.0 FL Normal 80.0-100.0 [facility] Comment on above: Performed By: #### H EPC, HBSAG, HIV4, RPR #### [address] #### HGBFO #### The performing lab is in the report. #### RUBG #### [facility] [address] [place] [address] #### HEMDF #### [facility] [address] [place] [address] ABO Rh Blood Typeon 03-16-20 20 ABO and Rh group Nom (Bld) ABO Group: O Rh, Gel: POS Normal [facility] Comment on above: Performed By: #### A HUMERA #### [facility] [address] #### ABSGL #### [address] [place] [id number] Antibody Screen Gelon 2019 Antibody Screen Gel Antibody Screen Gel: NEG Normal [facility] Comment on above: Performed By: #### Misa GRUBBS #### [address] #### ABSGL #### [facility] [address] [place] [address] HIV 1,2 Ab; p24 Agon 020 HIV 1,2 Ab; p24 Ag NONREACTIVE Normal Nonreactive [facility] Comment on above: Result Comment: Resu [...] #### H EPC, HBSAG, HIV4, RPR #### [facility] [address] [place] [address] #### HGBFO #### The performing lab is in the report. #### RUBG #### [facility] [address] [place] [address] #### HEMDF #### [facility] [address] [place] [address] Hep B Surface Agon 0 Hep B Surface Ag NOT DETECTED Normal Not-Detected [facility] Comment on above: Performed By: #### H EPC, HBSAG, HIV4, RPR #### [address] #### HGBFO #### The performing lab is in the report. #### RUBG #### [facility] [address] [place] [address] #### HEMDF #### [facility] [address] [place] [address] Hep C Antibodyon 03-16-2020 Hep C Antibody NOT DETECTED Normal Not-Detected [facility] Comment on above: Result Comment: Jessica ents with DETECTED Hepatitis C Ab results should have a new specimen submitted for supplemental testing with a Hepatitis C Quantitative RNA assay (viral load), if clinically indicated. Performed By: #### H EPC, HBSAG, HIV4, RPR #### [address] #### HGBFO #### The performing lab is in the report. #### RUBG #### [facility] [address] [place] [address] #### HEMDF #### [facility] [address] [place] [address] RPR, Qualon 03-16-2020 RPR, Qual NONREACTIVE Normal Non-Reactive [facility] Comment on above: Performed By: #### H EPC, HBSAG, HIV4, RPR #### [facility] [address] #### HGBFO #### The performing lab is in the report. #### RUBG #### [facility] [address] [place] [address] #### HEMDF #### [facility] [address] [place] [address] ABO/RHon 03-15-2020 Sodium [Moles/Vol] O [facility] [place], [place] Sodium [Moles/Vol] Positive [facility], [place] ANTIBODY SCREENon 03-15-2020 Sodium [Moles/Vol] Negative [place], [place] CBC Auto Differentialon 02-27 Absolute Baso # 0.0 10*3/uL 0 - 0.2 10*3/uL [place], [place] Absolute Neut # 4.1 10*3/uL 1.8 - 7 10*3/uL [place], [place] Basophils/100 WBC (Bld) 0.5 % 0 - 2 % [place], [place] Eosinophils (Bld) [#/Vol] 0.1 10*3/uL 0 - 0.5 10*3/uL [place] Eosinophils/100 WBC (Bld) 1.0 % 1 - 6 % [place] Erythrocyte distribution width (RBC) [Ratio] 13.5 % 11.5 - 14.5 % [place] Granulocytes/100 WBC (Bld) 66.5 % 40 - 80 % [place] Hematocrit (Bld) [Volume fraction] 36.1 % 35 - 47 % [place] Hemoglobin (Bld) [Mass/Vol] 12.5 g/dL 11.7 - 16 g/dL [place] Lymphocytes (Bld) [#/Vol] 1.5 10*3/uL 1 - 4.3 10*3/uL [place] Lymphocytes/100 WBC (Bld) 25.1 % 20 - 40 % [place] MCH (RBC) [Entitic mass] 31.1 pg 26 - 34 pg [place] MCHC (RBC) [Mass/Vol] 34.8 % 32 - 36 % [place] MCV (RBC) [Entitic vol] 89.4 fL 79 - 98 fL [place], [place] Monocytes (Bld) [#/Vol] 0.4 10*3/uL 0 - 0.8 10*3/uL [place], [place] Monocytes/100 WBC (Bld) 6.9 % 2 - 10 % [place], [place] Platelet mean volume (Bld) [Entitic vol] 8.2 fL 7.4 - 10.4 fL [place] Platelets (Bld) [#/Vol] 218 10*3/uL 140 - 440 10*3/uL [place] RBC (Bld) [#/Vol] 4.03 10*6/uL 3.8 - 5.2 10*6/uL [place] WBC (Bld) [#/Vol] 6.1 10*3/uL 3.6 - 10.7 10*3/uL [place] Test Performed by [facility], [address] , [address] Hemogram w/ Autodiffon 03-15 Abs Baso Cnt 0.0 10*3/uL Normal 0.0-0.2 [facility] Comment on above: Performed By: #### H EPC, HBSAG, HIV4, RPR #### [address] #### HGBFO #### The performing lab is in the report. #### RUBG #### [facility] [address] [place] [address] #### HEMDF #### [facility] [address] [place] [address] Abs Neutrophile Cnt 4.1 10*3/uL Normal 1.8-7.0 [facility] Comment on above: Performed By: #### H EPC, HBSAG, HIV4, RPR #### [address] #### HGBFO #### The performing lab is in the report. #### RUBG #### [place] [address] [place] [address] #### HEMDF #### [facility] [address] [place] [address] Basophils/100 WBC (Bld) 0.5 % Normal 0.0-2.0 [facility] Comment on above: Performed By: #### H EPC, HBSAG, HIV4, RPR #### [address] #### HGBFO #### The performing lab is in the report. #### RUBG #### [facility] [address] [place] [address] #### HEMDF #### [facility] [address] [place] [address] Eosinophils (Bld) [#/Vol] 0.1 10*3/uL Normal 0.0-0.5 [facility] Comment on above: Performed By: #### H EPC, HBSAG, HIV4, RPR #### [address] #### HGBFO #### The performing lab is in the report. #### RUBG #### [address] [place] [address] #### HEMDF #### [address] [address] Eosinophils/100 WBC (Bld) 1.0 % Normal 1.0-6.0 [facility] Comment on above: Performed By: #### H EPC, HBSAG, HIV4, RPR #### [address] #### HGBFO #### The performing lab is in the report. #### RUBG #### [address] [place] [address] #### HEMDF #### [address] [address] Erythrocyte distribution width (RBC) [Ratio] 13.5 % Normal 11.5-14.5 [facility] Comment on above: Performed By: #### H EPC, HBSAG, HIV4, RPR #### [address] #### HGBFO #### The performing lab is in the report. #### RUBG #### [place] [address] [place] [address] #### HEMDF #### [facility] [address] [place] [address] Granulocytes/100 WBC (Bld) 66.5 % Normal 40.0-80.0 [facility] Comment on above: Performed By: #### H EPC, HBSAG, HIV4, RPR #### [address] #### HGBFO #### The performing lab is in the report. #### RUBG #### [facility] [address] [place] [address] #### HEMDF #### [facility] [address] [place] [address] Hematocrit (Bld) [Volume fraction] 36.1 % Normal 35.0-47.0 [facility] Comment on above: Performed By: #### H EPC, HBSAG, HIV4, RPR #### [address] #### HGBFO #### The performing lab is in the report. #### RUBG #### [facility] [address] [place] [address] #### HEMDF #### [facility] [address] [place] [address] Hemoglobin (Bld) [Mass/Vol] 12.5 g/dL Normal 11.7-16.0 [facility] Comment on above: Performed By: #### H EPC, HBSAG, HIV4, RPR #### [address] #### HGBFO #### The performing lab is in the report. #### RUBG #### [address] [place] [address] #### HEMDF #### [facility] [address] [place] [address] Lymphocytes (Bld) [#/Vol] 1.5 10*3/uL Normal 1.0-4.3 [facility] Comment on above: Performed By: #### H EPC, HBSAG, HIV4, RPR #### [address] #### HGBFO #### The performing lab is in the report. #### RUBG #### [facility] [address] [place] [address] #### HEMDF #### [facility] [address] [place] [address] Lymphocytes/100 WBC (Bld) 25.1 % Normal 20.0-40.0 [facility] Comment on above: Performed By: #### H EPC, HBSAG, HIV4, RPR #### [address] [address] #### HGBFO #### The performing lab is in the report. #### RUBG #### [address] [place] [address] #### HEMDF #### [address] [address] MCH (RBC) [Entitic mass] 31.1 pg Normal 26.0-34.0 [facility] Comment on above: Performed By: #### H EPC, HBSAG, HIV4, RPR #### [address] [address] #### HGBFO #### The performing lab is in the report. #### RUBG #### [address] [place] [address] #### HEMDF #### [address] [address] MCHC (RBC) [Mass/Vol] 34.8 % Normal 32.0-36.0 [facility] Comment on above: Performed By: #### H EPC, HBSAG, HIV4, RPR #### [address] [address] #### HGBFO #### The performing lab is in the report. #### RUBG #### [address] [place] [address] #### HEMDF #### [address] [address] MCV (RBC) [Entitic vol] 89.4 fL Normal 79.0-98.0 [facility] Comment on above: Performed By: #### H EPC, HBSAG, HIV4, RPR #### [address] #### HGBFO #### The performing lab is in the report. #### RUBG #### [facility] [address] [place] [address] #### HEMDF #### [facility] [address] [facility] [place] [address] Monocytes (Bld) [#/Vol] 0.4 10*3/uL Normal 0.0-0.8 [facility] Comment on above: Performed By: #### H EPC, HBSAG, HIV4, RPR #### [address] #### HGBFO #### The performing lab is in the report. #### RUBG #### [address] [place] [address] #### HEMDF #### [facility] [address] [place] [address] Monocytes/100 WBC (Bld) 6.9 % Normal 2.0-10.0 [facility] Comment on above: Performed By: #### H EPC, HBSAG, HIV4, RPR #### [address] #### HGBFO #### The performing lab is in the report. #### RUBG #### [address] [place] [address] #### HEMDF #### [address] [place] [address] Platelet mean volume (Bld) [Entitic vol] 8.2 fL Normal 7.4-10.4 [facility] Comment on above: Performed By: #### H EPC, HBSAG, HIV4, RPR #### [address] #### HGBFO #### The performing lab is in the report. #### RUBG #### [facility] [address] [place] [address] #### HEMDF #### [facility] [address] [place] [address] Platelets (Bld) [#/Vol] 218 10*3/uL Normal 140-440 [facility] Comment on above: Performed By: #### H EPC, HBSAG, HIV4, RPR #### [address] [address] #### HGBFO #### The performing lab is in the report. #### RUBG #### [facility] [address] [place] [address] #### HEMDF #### [address] [place] [address] RBC (Bld) [#/Vol] 4.03 10*6/uL Normal 3.80-5.20 [facility] Comment on above: Performed By: #### H EPC, HBSAG, HIV4, RPR #### [address] [address] #### HGBFO #### The performing lab is in the report. #### RUBG #### [place] [address] [place] [address] #### HEMDF #### [address] [place] [address] WBC (Bld) [#/Vol] 6.1 10*3/uL Normal 3.6-10.7 [facility] Comment on above: Performed By: #### H EPC, HBSAG, HIV4, RPR #### [address] [address] #### HGBFO #### The performing lab is in the report. #### RUBG #### [place] [address] [place] [address] #### HEMDF #### [facility] [address] [place] [address] Otheron 03-15-2020 Test Performed by [facility], [address] , [place], [place] [id number] [place] [address] Rubellaon 03-15-2020 Rubella virus IgG Ql (S) 39.1 [place], [place] Comment on above: Interpretation Table : <10.0 Antibody NOT Detected >=10.0 Antibody Detected Test Performed by [facility], [address], [place], [place] [id number] [place] [address] Rubella Immune Statuson 02-27 Rubella Immune Status 39.1 Normal [facility] Comment on above: Result Comment: Inte rpretation Table: <10.0 Antibody NOT Detected >=10.0 Antibody Detected Performed By: #### H EPC, HBSAG, HIV4, RPR #### [facility] [address] [place] [address] #### HGBFO #### The performing lab is in the report. #### RUBG #### [facility] [address] [place] [address] #### HEMDF #### [facility] [address] [place] [address] ABO Rh Blood Typeon 02-06-20 20 ABO and Rh group Nom (Bld) ABO Group: O Rh, Gel: POS Normal [facility] Comment on above: Performed By: #### A BORH #### [facility] [address] [place], [place] [id number] [place] [address] #### ABSGL #### [facility] [address] [place] [address] ABO/RHon 02-06-2020 Sodium [Moles/Vol] O [place] Sodium [Moles/Vol] Positive [place] ANTIBODY SCREENon 02-06-2020 Sodium [Moles/Vol] Negative [place] Antibody Screen Gelon 2019 Antibody Screen Gel Antibody Screen Gel: NEG Normal [facility] Comment on above: Performed By: #### A BORH #### [facility] [address] #### ABSGL #### [facility] [address] [place] [address] HCG, Quantitative, on 02-06-2020 hCG Quant 8420 m[IU]/mL Abnormal [place] Comment on above: Females < 5 [...] Interpretation and review of laboratory results Abnormal [place] Test Performed by [facility], [address] , [address] Otheron 02-06-2020 Test Performed by [facility], [address] , [place], [place] [address] [place] [address] hCG Quantitativeon 0 hCG Quantitative 8420 m[IU]/mL Abnormal [facility] Comment on above: Result Comment: Fema [...] disease. Performed By: #### A HUMERA #### [id number] [place] [address] #### BARBARA #### [address] [place] [address] Vital Signs Date Time Vital Sign Value Performing Clinician Facility 04-12-2025 14:41-0400 Body temperature 97.5 [degF] [employer]fSinbad: [employer] Work Phone: [facility] 04-12-2025 14:41-0400 Diastolic blood pressure 69 mm[Hg] JfRaiing PA-C Work Phone: [facility] 04-12-2025 14:41-0400 Heart rate 82 /min [employer] PA-C Work Phone: [facility] 04-12-2025 14:41-0400 Respiratory rate 20 /min [employer] PA-C Work Phone: [facility] 04-12-2025 14:41-0400 SaO2% (BldA) [Mass fraction] 100 % Jf Travis HINA-C Work Phone: [facility] 04-12-2025 14:41-0400 Systolic blood pressure 101 mm[Hg] Jf Travis PA-C Work Phone: [facility] 04-12-2025 13:52-0400 Body height 152.4 cm Jf SANTAMARIA-C Work Phone: [facility] 04-12-2025 13:52-0400 Body mass index (BMI) [Ratio] 25.78 kg/m2 Jfjohnny Robles PA-C Work Phone: [facility] 04-12-2025 13:52-0400 Body weight 59.88 kg Jf Robles PA-C Work Phone: [facility] 04-07-2025 14:30-0400 Body height 152.[address] Delphine Daily MD [facility] 04-07-2025 14:30-0400 Body mass index (BMI) [Ratio] 25.2 kg/m2 Dr. Delphine Daily MD [facility] 04-07-2025 14:30-0400 Body weight 58.[address] Delphine Daily MD [facility] 04-07-2025 14:30-0400 Diastolic blood pressure 74 mm[Hg] Dr. Delphine Daily MD [facility] 04-07-2025 14:30-0400 Systolic blood pressure 110 mm[Hg] Dr. Delphine Daily MD [facility] 03-12-2025 04:55-0400 Body temperature 98 [degF] Dr. Delphine Daily MD [facility] 03-12-2025 04:55-0400 Diastolic blood pressure 70 mm[Hg] Dr. Delphine Daily MD [facility] 03-12-2025 04:55-0400 Heart rate 88 /min Dr. Delphine Daily MD [facility] 03-12-2025 04:55-0400 Respiratory rate 16 /min Dr. Delphine Daily MD [facility] 03-12-2025 04:55-0400 SaO2% (BldA) [Mass fraction] 100 % Dr. Delphine Daily MD [facility] 03-12-2025 04:55-0400 Systolic blood pressure 100 mm[Hg] Dr. Delphine Daily MD [facility] 03-12-2025 03:06-0400 Body height 152.[address] Delphine Daily MD [facility] 03-12-2025 03:06-0400 Body mass index (BMI) [Ratio] 24.7 kg/m2 Dr. Delphine Daily MD [facility] 03-12-2025 03:06-0400 Body weight 57.[address] Delphine Daily MD [facility] 03-10-2025 13:58-0400 Body height 157.48 cm Patria Manriquezman [employer] Work Phone: [facility] 03-10-2025 13:58-0400 Body mass index (BMI) [Ratio] 22.7 kg/m2 Patria Barkman [employer]PER[employer] Work Phone: [phone] [place] [address] 03-10-2025 13:58-0400 Body weight 56.35 kg Patria Barkman [employer] M[employer] OPERATOR[employer]C Work Phone: [facility] 03-10-2025 13:58-0400 Diastolic blood pressure 67 mm[Hg] Patria Barkman [employer] OPERATOR-C Work Phone: [facility] 03-10-2025 13:58-0400 Systolic blood pressure 102 mm[Hg] Patria Barkman [employer] M[employer] OPERATOR-C Work Phone: [facility] 02-06-2025 16:01-0400 Body height 157.48 cm Patria Barkman [employer] OPERATOR-C Work Phone: [facility] 02-06-2025 16:01-0400 Body mass index (BMI) [Ratio] 22.1 kg/m2 Patria Barkman [employer] OPERATOR[employer] Work Phone: [facility] 02-06-2025 16:01-0400 Body weight 54.88 kg Patria Barkman [employer] M[employer] OPERATOR[employer]C Work Phone: [facility] 02-06-2025 16:01-0400 Diastolic blood pressure 63 mm[Hg] Patria Barkman [employer] M[employer] OPERATOR-C Work Phone: [facility] 02-06-2025 16:01-0400 Systolic blood pressure 96 mm[Hg] Patria Barkman [employer] M[employer] OPERATOR-C Work Phone: [facility] 01-31-2025 20:02-0400 Body mass index (BMI) [Ratio] 22.1 kg/m2 Patria Dooley [employer] OPERATOR[employer] Work Phone: [facility] 01-31-2025 20:02-0400 Body temperature 97.5 [degF] Patria Manriquezman [employer] OPERATOR-C Work Phone: [facility] 01-31-2025 20:02-0400 Body weight 54.88 kg Patria Manriquezman [employer] M[employer] OPERATOR-C Work Phone: [facility] 01-31-2025 20:02-0400 Diastolic blood pressure 62 mm[Hg] Patria Manriquezman [employer] M[employer] OPERATOR-C Work Phone: [facility] 01-31-2025 20:02-0400 Heart rate 99 /min Patria Manriquezman [employer] M[employer] OPERATOR[employer]C Work Phone: [facility] 01-31-2025 20:02-0400 Respiratory rate 18 /min Patria Dooley [employer] M[employer] OPERATOR-C Work Phone: [facility] 01-31-2025 20:02-0400 SaO2% (BldA) [Mass fraction] 99 % Patria Manriquezman [employer] M[employer] OPERATOR-C Work Phone: [facility] 01-31-2025 20:02-0400 Systolic blood pressure 99 mm[Hg] Patria Dooley FE[employer] M[employer] OPERATOR-C Work Phone: [facility] 01-06-2025 12:59-0400 Body height 157.48 cm Patria Manriquezman [employer] M[employer] OPERATOR[employer]C Work Phone: [facility] 01-06-2025 12:59-0400 Body mass index (BMI) [Ratio] 22.1 kg/m2 Patria Manriquezman [employer] OPERATOR[employer]C Work Phone: [facility] 01-06-2025 12:59-0400 Body weight 54.94 kg Patria Manriquezman [employer] M[employer] OPERATOR[employer]C Work Phone: [facility] 01-06-2025 12:59-0400 Diastolic blood pressure 69 mm[Hg] Patrianaila Manriquezman FE[employer] MILL OPERATOR-C Work Phone: [facility] 01-06-2025 12:59-0400 Systolic blood pressure 106 mm[Hg] Patria Dooley FE[employer] MILL OPERATOR-C Work Phone: [facility] 12-13-2024 14:03-0400 Body height 157.48 cm Patria Dooley [employer] M[employer] OPERATOR[employer]C Work Phone: [facility] 12-13-2024 14:03-0400 Body mass index (BMI) [Ratio] 22.1 kg/m2 Patria Dooley [employer] M[employer] OPERATOR-C Work Phone: [facility] 12-13-2024 14:03-0400 Body weight 54.94 kg Patria Dooley [employer] M[employer] OPERATOR-C Work Phone: [facility] 12-13-2024 14:03-0400 Diastolic blood pressure 59 mm[Hg] Patria Manriquezman FE[employer] M[employer] OPERATOR-C Work Phone: [facility] 12-13-2024 14:03-0400 Systolic blood pressure 92 mm[Hg] Patria Dooley FE[employer] MILL OPERATOR-C Work Phone: [facility] 10-05-2020 08:01-0400 Body Temperature 98.29 [degF] Savanna [employer] Work Phone: 10-05-2020 08:01-0400 Pulse (Heart Rate) 109 /min Savanna [employer] Work Phone: 10-05-2020 08:01-0400 Pulse Oximetry 99 % Savanna [employer] Work Phone: 10-05-2020 08:01-0400 Respiratory Rate 16 /min Savanna [employer] Work Phone: 10-05-2020 07:56-0400 BP Diastolic 62 mm[Hg] [employer]anna[employer] Work Phone: 10-05-2020 07:56-0400 BP Systolic 97 mm[Hg] Savanna [employer] Work Phone: 10-02-2020 21:17-0400 BMI (Body Mass Index) 25.06 kg/m2 Savanna BENITO Work Phone: 10-02-2020 [id number] Body weight 62.14 kg Savanna BENITO Work Phone: 10-02-2020 [id number] Height 157.5 cm Savanna BENITO Work Phone: Encounters Encounter Date Encounter Type Care Provider Facility Start: 04-17-2025 End: 04-17-2025 ambulatory MARINA TAYLOR [facility] Start: 04-12-2025 End: 04-12-2025 Office outpatient new 30 minutes Jf Robles PA-C Work Phone: [facility] Comment on above: Annular psoriasis (P rimary Dx) Start: 04-07-2025 End: 04-07-2025 Patient encounter procedure Marina Taylor CNM -[facility] Work Phone: Start: 04-07-2025 End: 04-07-2025 ambulatory No Primary Care Physician Facility:[facility] Start: 03-20-2025 End: 03-20-2025 ambulatory MD [facility] Start: 03-12-2025 End: 03-12-2025 Emergency department patient visit Dr. Delphine Daily MD -Emergency Department Work Phone: Start: 03-10-2025 End: 03-10-2025 Patient encounter procedure Marina NEWSOME -[facility] Work Phone: Start: 03-10-2025 End: 03-10-2025 ambulatory Marina Taylor -[facility] Start: 02-06-2025 End: 02-06-[address] Dee Smith MD -[facility] Work Phone: Start: 02-06-2025 End: 02-06-2025 ambulatory Dee Smith -[facility] Start: 01-16-2025 End: 01-16-2025 ambulatory Patria Dooley NP-C Work Phone: -[facility] Start: 01-16-2025 End: 01-16-[address] Keyona Marshall DO -[facility] Start: 01-16-2025 End: 01-16-2025 ambulatory Keyona Marshall Facility:[facility] Start: 01-06-2025 End: 01-06-2025 ambulatory Patria MANLEY Work Phone: -Laboratory Specimen Start: 01-06-2025 End: 01-06-2025 Patient encounter procedure Marina Taylor CNM -Laboratory Specimen Work Phone: Start: 01-06-2025 End: 01-06-2025 Patient encounter procedure Marina Taylor CNM -[facility] Work Phone: Start: 01-06-2025 End: 01-06-[address] [facility] Start: 01-06-2025 End: 01-06-2025 ambulatory Marina Taylor Facility:[facility] Start: 12-13-2024 End: 12-13-2024 Patient encounter procedure Patria MANLEY -[facility] Work Phone: Start: 12-13-2024 End: 12-13-2024 ambulatory Patria Dooley [facility] Work Phone: Start: 10-02-2020 End: 10-05-2020 Evaluation and management of inpatient Savanna Ramirez Work Phone: [facility] Start: 07-20-2020 End: 07-20-2020 Subsequent [...] menses Start: 11-29-2018 Manual pelvic examination Patria ARDONC Work Phone: [facility] Procedures Date Procedure Procedure Detail Performing Clinician Start: 03-12-2025 Urnls dip stick/tabl et reagent auto microscopy Dr. Delphine Daily MD Start: 01-16-2025 Hepatitis C antibody measurement Patria Dooley [employer]PER[employer]C Work Phone: Comment on above: Reactive: Presumptiv e evidence of antibodies to HCV. Follow CDC recommendations for supplemental testing.Non-Reactive: Antibodies to HCV were not detected; does not exclude the possibility of exposure to HCVReactive Results are presumptive evidence of antibodies to HCV. Follow CDC recommendations for supplemental testing.Order confirmation testing: HCV Quant by PCR testing - HCVPCR #[id number] Non Reactive: < 0.8 Equivocal: >/= 0.8 to < 1.0 Reactive: >/= 1.0The [facility] requires that a reactive/equivocal HCV antibody result be sent out for confirmation. HCV Quant by PCR testing. Start: 01-16-2025 Procedure Patria Jarquin [employer]PERATOR-C Work Phone: Start: 01-16-2025 Rubella IgG measurement Patria Dooley -C Work Phone: Comment on above: Antibody Result: Int erpretationNon-Reactive: Non- ImmuneReactive: ImmuneThe following results were obtained with the [employer] Rubella IgG assay. Results from assays of other manufacturers cannot be used interchangeably. Start: 01-16-2025 Serologic test for syphilis Patria Dooley -C Work Phone: Start: 01-06-2025 Liquid based cervica l cytology screening Patria Dooley -C Work Phone: Comment on above: NEGATIVE FOR INTRAEP ITHELIAL LESION OR MALIGNANCY. This liquid based Th inPrep(R) pap test was screened withthe use of an image guided system. Start: 01-06-2025 Urine culture Patria meyer [employer] OPERATOR-C Work Phone: Start: 10-05-2020 Blood count complete [...] Blood count complete auto&auto difrntl wbc Chelsey Perez Work Phone: Start: 07-20-[address] gtt 3 specimens Chelseydiana Perez Work Phone: Start: 03-22-2020 Blood count hemoglobin Comment on above: Performed By: #### H EPC, HBSAG, HIV4, RPR #### [employer] [address] [place] [address] #### HGBFO #### The performing lab is in the report. #### RUBG #### [employer] [address] [place] [address] #### HEMDF #### [employer] [address] [place] [address] Start: 03-15-2020 Antibody screen rbc each serum technique Chelsey Saftammill Work Phone: Start: 03-15-2020 Blood count complete auto&auto difrntl wbc Chelsey Saftammill Work Phone: Start: 03-15-2020 Blood typing serologic abo Chelsey Saffell Work Phone: Start: 03-15-2020 RUBELLA IMMUNE Chelsey Sa ffell Work Phone: Start: 02-06-2020 Antibody screen rbc each serum technique Savanna Valcon Work Phone: Start: 02-06-2020 Blood typing serologic abo Savanna Valcon Work Phone: Start: 02-06-2020 Gonadotropin chorion ic quantitative Savanna Ramirez Work Phone: Plan of Treatment Date Care Activity Detail Author Start: 07-27-2030 DTaP/Tdap/Td vaccine (2 - Td) DTaP/Tdap/Td vaccine (2 - Td) [facility] Work Phone: Start: 04-07-2025 Measurement of gluco se 2 hours after glucose challenge for glucose tolerance test [facility] Start: 04-07-2025 Serologic test for syphilis [facility] Start: 04-07-2025 [facility] Start: 03-12-2025 [facility] Start: 03-12-2025 [facility] Start: 01-06-2025 Liquid based cervica l cytology screening [facility] Start: 03-15-2023 Screening for malign ant neoplasm of cervix Cervical cancer screen [place], [place] Start: 05-08-2021 End: 05-08-2021 Office Visit 05/08/2021 Office Visit Urology Yannick Shukla MD [address] [place] [phone] [facility] Start: 02-27-2021 Influenza vaccination Flu vacc ine (Season Ended) [facility] Work Phone: Start: 07-26-2020 End: 07-26-2020 Routine 07/26/2020 Routine Obstetrics and Gynecology Joy Wang MD [address] [place] [phone] [facility] Start: 04-13-2020 End: 04-13-2020 Routine 04/13/2020 Routine Obstetrics and Gynecology Christiane Mg MD [address] [place] [place] [address] [facility] Start: 02-28-2020 Influenza vaccination Flu vaccine (# 1) [place] Start: 02-08-2020 End: 02-08-2020 [facility] visit [facility] Start: 2014 Screening for malign ant neoplasm of cervix Cervical cancer screen [place], [place] Start: 2012 DTaP/Tdap/Td vaccine (1 - Tdap) DTaP/Tdap/Td vaccine (1 - Tdap) [place] Start: 2009 COVID-19 Vaccine (1) COVID-19 Vaccin e (1) [facility] Work Phone: Start: 2008 [facility] [place] [place] Start: 2004 HPV vaccine (1 - 2-d ose series) HPV vaccine (1 - 2-dose series) [place] Start: 1994 Varicella vaccine (1 of 2 - 2-dose childhood series) Varicella vaccine (1 of 2 - 2-dose childhood series) [place] CBC W Auto Different ial panel - Blood [facility] CBC W Auto Different ial panel - Blood [facility] Chlamydia deoxyribon ucleic acid detection [facility] Cytology report of Cervical or vaginal smear or scraping Cyto stain.thin prep [facility] End: 03-15-2020 Hemoglobin Fractionation Profile Hemoglobin Fractionation Profile Lab Routine Supervision of high risk in first trimester 1 Occurrences starting 03/15/2020 until 03/15/2020 [place] Comment on above: 1 Occurrences starti ng 03/15/2020 until 03/15/2020 Hemoglobin Fractiona tion Profile Hemoglobin Fractionation Profile Lab Routine Supervision of high risk in first trimester 03/15/2020 2:56 PM EDT [place] End: 03-15-2020 Hepatitis B Surface Antigen Hepatitis B Surface Antigen Lab Routine Supervision of high risk in first trimester 1 Occurrences starting 03/15/2020 until 03/15/2020 [place] Comment on above: 1 Occurrences starti ng 03/15/2020 until 03/15/2020 Hepatitis B Surface Antigen Hepatitis B Surface Antigen Lab Routine Supervision of high risk in first trimester 03/15/2020 2:56 PM EDT [place] End: 03-15-2020 Hepatitis C Antibody Hepatitis C Antibody Lab Routine Supervision of high risk in first trimester 1 Occurrences starting 03/15/2020 until 03/15/2020 [place] Comment on above: 1 Occurrences starti ng 03/15/2020 until 03/15/2020 Hepatitis C Antibody Hepatitis C Antibody Lab Routine Supervision of high risk in first trimester 03/15/2020 2:56 PM EDT [place] Hepatitis C antibody measurement [facility] End: 03-15-2020 HIV Screen HIV Screen Lab Routine Supervision of high risk in first trimester 1 Occurrences starting 03/15/2020 until 03/15/2020 [place] Comment on above: 1 Occurrences starti ng 03/15/2020 until 03/15/2020 HIV Screen HIV Screen Lab R outine Supervision of high risk in first trimester 03/15/2020 2:56 PM EDT [place] Liquid based cervica l cytology screening [facility] Nonrebreather mask oxygen Nonreb reather mask oxygen Respiratory Care Routine As directed - RT (PRN) until discontinued starting 10/02/2020 [employer] Work Phone: Comment on above: As directed - RT (N[place] N) until discontinued starting 10/02/2020 Oxygen therapy [[facility]] Initiate Oxygen Therapy Protocol while on epidural Respiratory Care Routine Daily until discontinued starting 10/03/2020 [employer] Work Phone: Comment on above: Daily until disconti nued starting 10/03/2020 Path report.final Dx Spec [facility] Patient Education Vaginal Bleedi ng During [facility] Work Phone: End: 03-15-2020 RPR with FTA Relex RPR with FTA Relex Lab Routine Supervision of high risk in first trimester 1 Occurrences starting 03/15/2020 until 03/15/2020 [place] Comment on above: 1 Occurrences starti ng 03/15/2020 until 03/15/2020 RPR with FTA Relex RPR with FTA Relex Lab Routine Supervision of high risk in first trimester 03/15/2020 2:56 PM EDT [place] Rubella IgG measurement [facility] Serologic test for syphilis [facility] End: 10-02-2020 Ultrasound OB limited - unit performed Ultrasound OB limited - unit performed OB Routine One Time for 1 Occurrences starting 10/02/2020 until 10/02/2020 [employer] Work Phone: Comment on above: One Time for 1 Occur rences starting 10/02/2020 until 10/02/2020 [facility] Immunizations Immunization Date Immunization Notes Care Provider Fa cility 07-27-2020 tetanus toxoid, redu leana diphtheria toxoid, and acellular pertussis vaccine, adsorbed Savanna BENITO Work Phone: Payers Date Payer Category Payer Private Health Insurance GENERIC COMMERCIAL [id number] 2024 Self-pay 2024 Unknown [id number] 2019 Unknown [employer] [address] [id number] 2019-Present [phone] [address] [place] [address] [id number] 1993 Unknown [id number] 1993 Unknown [id number] Unknown [id number] Unknown [id number] Unknown [id number] Unknown [id number] Unknown [id number] Unknown [id number] Unknown [id number] Unknown [id number] Unknown [id number] Social History Date Type Detail Facility Start: 02-03-2020 End: 03-12-2025 Tobacco smoking status COIS Never smoker [facility] Start: 02-03-2020 End: 04-12-2025 Tobacco use and exposure Never used [place] Start: 02-03-2020 End: 10-03-2020 Alcohol intake Ex-drinker (finding) [facility] Start: 1995 Sex Assigned At Not on file M [place], [place] Start: 01-14-2020 [place], [place] Exposure to SARS-CoV -2 (event) Not sure [place] Start: 1995 Sex Assigned At Female W [facility] Start: 12-23-2024 End: 04-12-2025 Tobacco smoking status COIS Ex-smoker (finding) [facility] Start: 04-12-2025 Patient sol tly [facility] History of tobacco use Current smoker [facility] Work Phone: History of tobacco use Cigarette Smoker U [facility] Work Phone: Start: 04-12-2025 Alcoholic beverage intake Current drinker of alcohol (finding) [facility] Work Phone: Start: 04-12-2025 History of Social function [facility] Work Phone: Start: 04-12-2025 Sex Female (finding) [facility] Functional Status Date Assessment Result Facility 04-12-2025 Functional status 101/69 025 2:41 PM EDT Natty Aldridge 101/ [facility] 04-12-2025 Vital signs 82 04/12/2025 2: 41 PM EDT FlaglerNatty mata [facility] Work Phone: 04-12-2025 Patient Health Quest ionnaire 2 item (PHQ-2) [Reported] [facility] Work Phone: [facility] Work Phone: Clinical Notes 12-13-2024 to 04-12-2025 Jf Robles PA-C - 04/12/2025 1:35 PM EDTPatient Instructions Note Date & Type Note Facility 04-12-2025 History of Presen t illness Narrative Subjective Patient ID: Lola Perez is a 29 y.o. female. They present today with a chief complaint of Rash. Patient disposition: Home HISTORY OF PRESENT ILLNESS: This is a 29-year-old adult female currently 23 weeks with a past medical history of psoriasis since October of this year. She sees dermatology for this. She currently is using triamcinolone cream for this problem and is also getting a biologic agent injection periodically which she believes is Cimzia. She is scheduled to see her cardiology nurse tomorrow. She presents to urgent care because the rash has been gradually worsening instead of getting better and is painful. She developed new lesions on her face yesterday. She denies any lesions inside the mouth. She denies any GI upset. She denies swelling, trouble breathing, trouble swallowing. She denies any arthralgias. The pain is moderate all over her skin and she has rash currently on her face, all extremities, front and back of the torso. Past Medical History Allergies as of 04/12/2025 (No Known Allergies) Prescriptions Prior to Admission[1] Medical History[2] Surgical History[3] reports that she has quit smoking. Her smoking use included cigarettes. She has never used smokeless tobacco. She reports current alcohol use. Review of Systems Negative except as documented in the History of Present Illness. Objective Vitals: 04/12/25 1352 BP: 120/84 Pulse: 86 Resp: 20 Temp: 36.7 C (98 F) TempSrc: Oral SpO2: 99% Weight: 59.9 kg (132 lb) Height: 1.524 m (5') Patient's last menstrual period was 11/01/2024 (approximate). PHYSICAL EXAMINATION: CONSTITUTIONAL: well-appearing, nontoxic, ambulatory EYES: No scleral icterus or orbital trauma noted. No conjunctival injection. PERRLA. No nystagmus. ENT: Head and face are unremarkable and atraumatic. Mucous membranes moist. Nares are patent without copious rhinorrhea. LUNGS: CTAB, no r/r/w. CARDIOVASCULAR: RRR, no m/r/g. Nl S1/S2. ABDOMEN: [Nontender, nondistended, with no obvious masses, and no peritoneal signs.] MUSCULOSKELETAL: No obvious deformities. CHRISTINE with equal strength. Gait [observed to be normal.] SKIN: There are slightly raised perfectly annular inflammatory lesions with central clearing both scattered and confluent on all extremities as well as the back and to a lesser extent on the face. Each of these lesions ranges from 1 to 8 cm in diameter and are most confluent on the bilateral forearms and on the back. The clear areas of skin demonstrate no induration, erythema, increased calor. NEURO: Normal baseline mental status. No obvious neurological deficits, normal sensation and strength bilaterally. PSYCH: Appropriate mood and affect. 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 She was screened today for any signs of secondary bacterial infection but was negative in this regard despite severity of inflammatory rash. We did discuss treatment options during . Given the severity of her symptoms and near complete nature of rash currently I recommended parenteral corticosteroid treatment until she can see her cardiology nurse tomorrow. The potential side effects of corticosteroid use were discussed at length with the patient. These risks include but are not limited to: difficulty sleeping, increased appetite, fluid retention, mood changes, weight gain, change in blood pressure, high blood glucose, possible adrenal suppression, osteoporosis, avascular necrosis of the hip, menstrual irregularities (if applicable), increased risk of infection, and cataracts. The patient understands these risks and is willing to proceed with steroid therapy. She agreed to this plan and Decadron 8 mg intramuscular was administered. She was also urged to go to the ED if she develops any new or worsening symptoms especially of the mucosa. She was also warned about possibility of dehydration from secondary losses through the skin and will hydrate thoroughly. Procedures Diagnostic study results (if any) were reviewed by Jf Robles PA-C. No results found for this visit on 04/12/25. Assessment/Plan Allergies, medications, history, and pertinent labs/EKGs/Imaging reviewed by Jf Robles PA-C. Orders and Diagnoses There are no diagnoses linked to this encounter. Medical Admin Record Follow Up Instructions No follow-ups on file. Electronically signed by Jf Robles PA-C 2:11 PM [1] (Not in a hospital admission) [2] No past medical history on file. [3] No past surgical history on file. documented in this encounter [facility] Work Phone: 04-12-2025 Instructions Jf Robles PA-C - 04/12/2025 1:35 PM EDT See your cardiology nurse tomorrow. Go to the emergency department if you develop any lesions inside the mouth, any GI issues, any new or worsening symptoms, or any swelling or hot red rash at any of your rash sites. documented in this encounter [facility] Work Phone: 04-07-[address] [facility] 04-07-2025 Progress note Note Date/Time April 07, 2025 3:34pm [facility] [address], [address] [place] [address] OFFICE VISIT Date of Service: 04/07/25 MR#: [id number] Acct: [id number] Name: LOLA PEREZ Rep #: [id number] : 1995 Provider: PAULINO Taylor Age/Sex: 29/F Location: [facility] Status: Signed Intake Vital Signs 02/06/25 16:01 03/12/25 03:06 04/07/25 14:30 Height 5 ft 2 in 5 ft 5 ft Weight: 129 lb 9 oz BMI 25.2 BP 110/74 Intake Visit Reasons: 22wk ob Chief Complaint: 22wk OB Ehr Trainer Required: No Is patient in pain?: No Allergies shrimp Allergy (Mild, Verified 04/07/25 14:29) Rash Medications ?Medication ?Instructions ?Recorded ?Confirmed ?Type vits 75-iron 28 mg-folic pkg PO 12/13/2403/29 History acid 800 mcg-omega-3 oral combo pack (One A Day Women's DHA) clobetasol 0.05 % topical cream 1 applic topical BID 2 weeks #45 01/31/25 04/07/25 Rx grams Last Menstrual Period: 11/02/24 : No Have you fallen in the past year?: No PFSH PFSH Medical History Gynecologic exam normal Family History Grandfather Heart disease Diabetes Father Hypertension Brain aneurysm in 40s Social History adopted: No household members: spouse, family and children housing: house number of children: 1 current occupational status: employed current occupation: [employer] 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) pets and animals: Yes (Avoid litterbox ) pets and animals: cat(s) history of recent travel: No sexually active: Yes Smoking Status: Never smoker second hand exposure: No alcohol intake: current alcohol intake frequency: holidays/special occasions only details: Not while substance use type: does not use well-balanced diet: daily or most days caffeine: No eating out: 1-3 times/week during the past year weight has: remained stable what type of physical activity do you participate in: none chung/zoroastrianism: None seatbelt use: always do you feel safe at home: Yes additional social history: - Andrea- Staff Setter Out History 2 Elective abortions Hx Para 1 Spontaneous abortions Hx # Term Pregnancies Ectopic pregnancies Hx # Pregnancies Multiple births # of living children 1 Past Pregnancies Del. Date Name GA/Weeks Outcome Route Bth Weight Gen Labor Lgth Anesthesia Del Locatn Provider FOB 10/03/20 Andrea Suarez 40 live - full term 7lbs 5 oz Male epidural Abigail Mendez HPI 22wk ob Details: LOLA PEREZ is a 29 year old who presents for routine OB visit. OB Visit DONALD Calculator Estimated Delivery Date Method Current WG Current Estimate 08/09/25 LMP (Certain) 22w 2d Other Estimates 08/05/25 Ultrasound #1 22w 6d Expected Delivery Route/Plan Labor Preferences- CB/BF [...] Prot -?-?-?-?-?-?-?-?-?-?-?-?- Glucose FHR FuHt Pres Dilation -?-?-?-?-?--?-?-?-?-?-?-?- Effaced St Visit Note 01/06/25 -?-?-?-?-?-?-?-?-?-?-?-?- 9w 2d 121 lb 2 oz (+2 oz) 106/69 -?-?-?-?-?-?-?-?-?-?-?-?- 158 -?-?-?-?-?-?-?-?-?-?-?-?- KW- CRL 2.96cm c ons with date. Accepts NIPT 02/06/25 -?-?-?-?-?-?-?-?-?-?-?-?- 13w 5d 121 lb (+0 oz) 96/63 Negative -?-?-?-?-?-?-?-?-?-?-?-?- Negative 150 -?-?-?-?-?-?-?--?-?-?-?-?- SM- no vb crampi ng has severe [...] and recommended benadryl and Claritin for sx. 04/07/25 -?-?-?-?-?-?-?-?-?-?-?-?- 22w 2d 129 lb 9 oz (+8 lb 9 oz) 110/74 Negative -?-?-?-?-?-?-?-?-?-?-?-?- Negative 145 -?-?-?-?-?-?-?-?-?-?-?-?- KW- no vb/crampi ng. seeing derm for itching and rash. no concerns today ACOG First Trimester First Trimester: Desire for [...] and Symptoms of Preeclampsia, Feeding No , Education and Family Medical Leave or [...] Negative Last Edit by Yamila Pope on 04/07/25 14:45 Office Urine Protein Negative Last Edit by Yamila Pope on 04/07/25 14:45 Coding Level of Care Code OB Routine Diagnoses Psoriasis L40.9 Infertility Former smoker, stopped smoking in distant past Z87.891 Supervision of normal Z34.90 22 weeks gestation of Z3A.22 Weeks of gestation: 22 weeks Amenorrhea N91.2 Assessment and Plan Assessment and Plan (1) Psoriasis: Status: Acute (2) Infertility: Status: Acute Comment: 3yrs to conceive each (3) Former smoker, stopped smoking in distant past: Status: Acute (4) Supervision of normal : Status: Acute Comment: PRR, , DONALD 08/09/25, PC Andrea, Andrea (5) : Status: Acute Qualifiers: Weeks of gestation: 22 weeks Qualified Code(s): Z3A.22 - 22 weeks gestation of Comment: declined Carrier testing. NIPT low risk male. (6) Amenorrhea: Status: Acute Comment: nurse visit; positive test today. RTO as scheduled for New OB Orders: Orders POC Urinalysis 2 Dip (Clinic) Today CBC W/Diff, Automated Today Z34.90 - Encounter for supervision of normal , unspecified, unspecified trimester, Z3A.22 - 22 weeks gestation of Glucose Challenge Gest 1H 50g Today Z13.1 - Encounter for screening for diabetes mellitus HIV Today Z34.90 - Encounter for supervision of normal , unspecified, unspecified trimester, Z3A.22 - 22 weeks gestation of Syphilis Antibodies Today Z34.90 - Encounter for supervision of normal , unspecified, unspecified trimester, Z3A.22 - 22 weeks gestation of Plan Details Additional Comments: ACOG trimester education reviewed and updated. see problem list details for updated plan management information and see below for orders placed at this visit. GA appropriate handout given. Clinical Quality Measures Falls Risk Screening/Assistive Devices Have you fallen in the past year?: No 04/07/25 1534 <Electronically signed by Marina mata CNM> Date _ Marina Taylor CNM Cosigner Signature: Date (if applicable) CC: ~ [facility] Work Phone: 1(333) 299-824209-12-2025 Progress [facility] [address] [place] [address], [address] [place] [address] OFFICE VISIT Date of Service: 03/10/25 MR#: [id number] Acct: [id number] Name: LOLA PEREZ Rep #: [id number] : 1995 Provider: PAULINO Taylor Age/Sex: 29/F Location: [facility] Status: Signed Intake Vital Signs 01/06/25 12:59 01/31/25 20:02 02/06/25 16:01 03/10/25 13:58 Height 5 ft 2 in 5 ft 2 in 5 ft 2 in 5 ft 2 in Weight: 124 lb 4 oz BMI 22.7 BP 102/67 Intake Visit Reasons: 18wk ob Chief Complaint: 18wk OB Ehr Trainer Required: No Is patient in pain?: No [...] 1 current occupational status: employed current occupation: [employer] 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) [...] physical activity do you participate in: none chung/zoroastrianism: None seatbelt use: always do you feel safe at home: Yes additional social history: - Andrea- Staff Setter Out History 2 Elective abortions Hx Para 1 [...] current plan of care details and appropriate ordersplaced. Relevant counseling for the gestational age provided. [...] of Care, Toxoplasmosis Precations, Use of Any med ications, Sexual activity, Exercise, Dental Care, Sauna/Hot tub [...] Signs and Symptoms of Preeclampsia, Infant Feeding No , Sophia Education and Family Medical Leave or Disability [...] information and see below for orders placed atthis visit. GA appropriate handout given. 03/10/25 1424 s CNM> Date _ Marina Taylor CNM Cosigner Signature: Date (if applicable) CC: ~ [facility]09-12-2025 Progress note Author Marina Taylor [facility] Note Date/Time March 10, 2025 2:23pm [facility] Women[facility] [address], [address] [place] [address] OFFICE VISIT Date of Service: 03/10/25 MR#: [id number] Acct: [id number] Name: LOLA PEREZ Rep #: [id number] : 1995 Provider: PAULINO Taylor Age/Sex: 29/F Location: [facility] Status: Signed Intake Vital Signs 01/06/25 12:59 01/31/25 20:02 02/06/25 16:01 03/10/25 13:58 Height 5 ft 2 in 5 ft 2 in 5 ft 2 in 5 ft 2 in Weight: 124 lb 4 oz BMI 22.7 BP 102/67 Intake Visit Reasons: 18wk ob Chief Complaint: 18wk OB Ehr Trainer Required: No Is patient in pain?: No [...] 1 current occupational status: employed current occupation: [employer] 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) [...] physical activity do you participate in: none chung/zoroastrianism: None seatbelt use: always do you feel safe at home: Yes additional social history: - Andrea- Staff Setter Out History 2 Elective abortions Hx Para 1 Spontaneous abortions Hx # Term Pregnancies Ectopic pregnancies Hx # Pregnancies Multiple births # of living children 1 Past Pregnancies Del. Date Name GA/Weeks Outcome Route Bth Weight Gen Labor Lgth Anesthesia Del Locatn Provider FOB 10/03/20 Andrea Robersonjohancorina 40 live - full term 7lbs 5 oz Male epidural Fletcherraiza Ramirez Andrea HPI 18wk ob Details: LOLA PEREZ is [...] and Symptoms of Preeclampsia, Feeding No , Sophia Education and Family Medical Leave or Disability [...] this visit. GA appropriate handout given. 03/10/25 8155 <Electronically signed by Marina mata CNM> Date _ Marina Taylor CNM Cosigner Signature: Date (if applicable) CC: ~ [facility] Work Phone: 1(895) 996-420207-11-2025 Evaluation note* Diagnosis Onset Date Resolution Status Admit Date Amenorrhea acute January 06 12:35pm Former smoker, [...] smoker, stopped smoking in distant past acute 2024 1:50pm Infertility acute February 1:50pm acute February 1:50pm Psoriasis acute February 1:50pm Supervision of normal acute March 10, 2025 1:50pm Amenorrhea acute April 07, 2025 2:26pm Former smoker, stopped smoking in distant past acute April 07, 2025 2:26pm Infertility acute April 07, 2025 2:26pm acute April 07, 2025 2:26pm Psoriasis acute April 07, 2025 2:26pm Supervision of normal acute April 07 2:26pm [facility] Work Phone: 1(980) 764-385407-11-2025 Progress [facility] [address] [place] [address], [address] [place] [address] OFFICE VISIT Date of Service: 01/06/25 MR#: [id number] Acct: [id number] Name: LOLA PEREZ Rep #: [id number] : 1995 Provider: PAULINO Taylor Age/Sex: 29/F Location: [facility] Status: Signed Intake Vital Signs 12/13/24 14:03 01/06/25 12:59 Height 5 ft 2 in 5 ft 2 in Weight: 121 lb 2 oz BMI 22.1 BP 106/69 Intake Visit Reasons: *NEW* NOB LMP 11/02, DONALD 08/09 Chief Complaint: New OB Ehr Trainer Required: No Is patient in pain?: No [...] 1 current occupational status: employed current occupation: [employer] 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) [...] physical activity do you participate in: none chung/zoroastrianism: None seatbelt use: always do you feel safe at home: Yes additional social history: - Andrea- Staff Setter Out History 2 Elective abortions Hx Para 1 [...] current plan of care details and appropriate ordersplaced. Relevant counseling for the gestational age provided. [...] Pulmonary (e.g.,TB,Asthma), Seasonal allergies, Drug/latex allergies/reactions, Breast, Elevator Erector surgery, Operations/hospitalizations, Anesthetic complications, History of abnormal [...] additional complaints, except as documented, Denies abnormal vaginalbleeding, Denies difficulty voiding, Denies dyspareunia and Denies [...] - Encounter for supervision of normal , unspecified,unspecified trimester Type & Screen 12/23/24 Z34.90 - [...] patient and patient chose: [ ] 01/06/25 1347 s PAULINO> Date _ Marina Taylor CNM Cosigner Signature: Date (if applicable) CC: ~ [facility]06-17-2025 Evaluation note* Diagnosis Onset Date Resolution Status Admit Date Amenorrhea acute December 13 1:58pm Amenorrhea acute January 06 12:35pm Former smoker, stopped smoki ng in distant past acute January 06, 2025 12:35pm Infertility acute January 06 12:35pm acute January 06 12:35pm Supervision of normal acut e January 06, 2025 12:35pm [facility] Work Phone: [phone]) [phone] Evaluation note* Diagnosis Onset Date Resolution Status Admit Date Amenorrhea acute December 13 1:58pm Amenorrhea acute January 06 12:35pm Former smoker, stopped smoki ng in distant past acute January 06, 2025 12:35pm Infertility acute January 06 12:35pm acute January 06 12:35pm Supervision of normal acut e January 06, 2025 12:35pm acute January 31 4:08pm Psoriasis acute January 31 4:08pm Amenorrhea acute February 06, 2 025 3:58pm Former smoker, stopped smoki ng in distant past acute February 06 3:58pm Infertility acute February 06, 2025 3:58pm acute February 06, 2 025 3:58pm Psoriasis acute February 06, 2 025 3:58pm Supervision of normal acut e February 06, 2025 3:58pm [facility] Work Phone: 1(762) 573-432606-17-2025 Evaluation note* Diagnosis Onset Date Resolution Status Admit Date Amenorrhea acute December 13 1:58pm Amenorrhea acute [...] smoker, stopped smoking in distant past acute Septembe r 2024 1:50pm Infertility acute February 1:50pm acute February 1:50pm Psoriasis acute February 1:50pm Supervision of normal acute March 10, 2025 1:50pm [facility] Work Phone: Evaluation noteNo assessment information available [facility] Work Phone: Evaluation note* Diagnosis Annular psoriasis- Primary documented in this encounter [facility] Work Phone: Hospital Discharge instructionsAdditional Instructions Follow up with your OBGYN as soon as possible for a repeat exam. If you have any abdominal pain, increased vaginal bleeding, leakage of fluids, nausea, vomiting you need to return to the ED immediately.[facility] Work Phone: Progress note Author Marina Taylor [facility] Note Date/Time January 06, 2025 1:47 pm [facility] [address] [place] [address], [address] [place] [address] OFFICE VISIT Date of Service: 01/06/25 MR#: [id number] Acct: [id number] Name: LOLA PEREZ Rep #: [id number] : 1995 Provider: PAULINO Taylor Age/Sex: 29/F Location: [facility] Status: Signed Intake Vital Signs 12/13/24 14:03 01/06/25 12:59 Height 5 ft 2 in 5 ft 2 in Weight: 121 lb 2 oz BMI 22.1 BP 106/69 Intake Visit Reasons: *NEW* NOB LMP 11/02, DONALD 08/09 Chief Complaint: New OB Ehr Trainer Required: No Is patient in pain?: No [...] 1 current occupational status: employed current occupation: [employer] 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) [...] physical activity do you participate in: none chung/zoroastrianism: None seatbelt use: always do you feel safe at home: Yes additional social history: - Andrea- Staff Setter Out History 2 Elective abortions Hx Para 1 Spontaneous abortions Hx # Term Pregnancies Ectopic pregnancies Hx # Pregnancies Multiple births # of living children 1 Past Pregnancies Del. Date Name GA/Weeks Outcome Route Bth Weight Gen Labor Lgth Anesthesia Del Locatn Provider FOB 10/03/20 Andrea Suarez 40 live - full term 7lbs 5 oz Male epidural Abigail Mendez HPI *NEW* NOB LMP 5/7, DONALD 08/09 Details: LOLA PEREZ is a [...] Pulmonary (e.g.,TB,Asthma), Seasonal allergies, Drug/latex allergies/reactions, Breast, Elevator Erector surgery, Operations/hospitalizations, Anesthetic complications, History of abnormal [...] Larc, Signs and Symptoms of Preeclampsia, Feeding Yes , Sophia Education and Family Medical Leave or Disability [...] patient and patient chose: [ ] 01/06/25 2283 <Electronically signed by Marina mata CNM> Date _ Marina Taylor CNM Cosigner Signature: Date (if applicable) CC: ~ [facility] Work Phone: Reason for referral (narrative)No reason for referral information availableBlMercy Hospital Work Phone: Assessments Diagnosis Missed menses Absence of menstruation Diagnosis Supervision of high risk in first trimester Unspecified high-risk Diagnosis care in second trimester Diagnosis PROM (premature rupture of membranes) Premature rupture of membranes in , unspecified as to episode of care Term Advance Directives Documents on File Type Date Recorded Patient Religion Teacher Expl anation Advance Directives and Living Will Power of Customer Service Manager Documents on File Type Date Recorded Patient Religion Teacher Expl anation ACP-Advance Directive ACP-Power of Customer Service Manager Latest Code Status on File Code Status Date Activated Date Inactivated Comments Full Code 10/03/2020 7:57 PM Full Code 10/02/2020 9:40 PM 10/03/2020 7:57 PM Advance Directive Response Recorded Date/ Time Do you have a Healthcare Power of Customer Service Manager? No March 12, 2025 3:11am Hospital Course Note Department of Obstetrics and Gynecology Delivery Discharge Summary Admission on 10/02/2020 8:57 PM Reason for admission: PROM Intrapartum Course: Augmented with pitocin 39w4d PC-01 Indications for Delivery: Was patient delivered between 37w0d - [id number]? NO Surgical Operations & Procedures: Date of delivery: 10/03/20 Delivery Type: spontaneous vaginal Anesthesia: Epidural anesthesia Laceration(s): 2nd degree Delivery Complications: none Pertinent Findings & Procedures: Information for the patient's : Patel Perez [[id number]] male Weight: 7 lb 5.1 oz (3.32 kg) Apgars: Information for the patient's : SlimePatel [[id number]] One Minute : 8 Five Minute : 9 Course: complicated by difficulty urinating which resolved, tachycardia associated with shaking and crying which also resolved, anemia (pp hgb 8.5), and elevated wbc without fevers/uterine tenderness/purulent discharge. No complaints by the time of discharge. Infant: Male infant (more content not included)... Discharge Instructions * Instructions* Savanna Ramirez MD - 10/05/2020 Images from the original note were not included. After Your Delivery (the Period): Your Care Instructions Thank you for allowing us to care of you at [facility]. This time can be one of many [...] over the next few weeks. Bleeding may peanut picker and then decrease again around 7-10 days [...] up on sleep. EMOTIONS You may feel meija, sad, teary, & overwhelmed for the first [...] avoid constipation you may take a mild zaiv-vrp-[id number] stool softener (such as colace) as recommended [...] clean your hands with an alcohol-based hand civil engineer in training that contains at least 60% alcohol. Clean your hands often Wash your hands often with soap and water for at least 20 seconds, especially after blowing your nose, coughing, or sneezing; going to the bathroom; and before eating or preparing food. If soap and water are not readily available, use an alcohol-based hand civil engineer in training with at least 60% alcohol, covering all [...] healthcare provider to call the local or formerly [facility] health department. Persons who are placed underactive [...] isolation precautions should be made on a dyum-ex-mjpq basis, in consultation with healthcare providers and [facility]. Information on COVID-19 for [...] respiratory tract signs and symptoms. Ways to [place] with Anxiety & Stress It is normal [...] an illness that was first found in [facility], in May 2019. It has since spread [...] seen in people before. This virus spreads [id number] through droplets from coughing and sneezing. It [...] water aren't available, use an alcohol-based hand civil engineer in training. Call 911 anytime you think you may [...] of: September 28, 2019 Content Version: 12.4 [employer]. Care instructions adapted under license by your healthcare professional. If you have questions about a medical condition or this instruction, always ask your healthcare professional. [employer] disclaims any warranty or liability for your use of this information. General Recommendations for Routine Cleaning and Disinfection of Households Community members can practice routine cleaning of frequently touched surfaces (for example: tables, doorknobs, light switches, handles, desks, toilets, faucets, sinks) with household relays draftsperson and EPA-registered disinfectants that are appropriate for [...] appropriate. These supplies include tissues, paper towels, relays draftsperson and EPA-registered disinfectants (see list link at [...] be used for other purposes. Consult the cst's instructions for cleaning and disinfection products used. [...] used if appropriate for the surface. Follow cst's instructions for application and proper ventilation. Check [...] o Products with EPA-approved emerging viral pathogens claimspdf iconexternal icon are expected to be effective against COVID-19 based on data for harder to kill viruses. Follow the cst's instructions for all cleaning and disinfection products (e.g., concentration, application method and contact time, etc.). Soft (porous) surfaces such as carpeted floor, rugs, and drapes Remove visible contamination if present and clean with appropriate relays draftsperson indicated for use on these surfaces. After cleaning: Launder items as appropriate in accordance with the cst's instructions. If possible, launder items using the [...] items as appropriate in accordance with the cst's instructions. If possible, launder items using the warmest appropriate water setting for the items and dry items completely. Dirtylaundry from an ill person can be washed with other people's items. o Clean and disinfect clothes hampers according to guidance above for surfaces. If possible, consider placing a textile bag sewer that is either disposable (can be thrown away) or can be laundered. CDC has a list of EPA approved cleaning products on their website - https://www.cdc.gov/coronavirus/ 2019-ncov/community/home/cleaning-disinfection.html https://www.[employer].Red Aril/Wlbtl-Ualcatdjjuw-Lfuowcpb-Products-List.pdf [employer] with delivery and peanut picker services: [employer]: Free peanut picker at locations Delivery is $12.95 a month Website - [employer]: Supervisor [employer] $2.95 (1st order is free) Delivery is $14.95 Website [employer] Pamela [place]: store group manager is free Delivery is $5.95 Website [employer]anc[employer]: store group manager is $4.95 Delivery is $9.95 mphoria [employer]: store group manager is $4.95 Delivery is $9.95 [place] [employer]: Can be ordered for delivery and peanut picker with [employer] Website - [employer]: Free deliver for first 3 orders of $35 or more Website [employer] Will deliver from [facility], [facility], [employer], and [...] difficulty. Lochia: Normal, no clots Feeding: breast : male, desires circ Objective: Vitals: 10/04/20 2153 [...] into the room. RN gave parents the "Formula/Bottle Feeding Your Baby" and "Paced Bottle Feeding" handouts and explained them to parents. Parents verbal understanding and deny any additional questions at this time. RN explained importance of of pumping every time infant feeds in order for mother's milk supply [...] to pain? Plan:Encouraged oral intake with the Stratio pitcher,2.5 cups per pitcher,attempt 2 before considering IV Check CBC,BMP and serum lactate Will give one Oxycodone for pain. * Linda Elizondo RN - 10/04/2020 9:55 PM EDT Patient's called out stating, "something is wrong with my ." RN went to room checked vitals. Patient's [...] (36.9 C) (Oral) Resp 18 Ht 5' 2" (1.575 m) Wt 137 lb (62.1kg) LMP [...] expectant management Cx:deferred FHP: Cat I tracing [place]: q5min A/P: 1. PROM 2. Urehral caruncle 3. Subchorionic hemorrhage of placenta in first trimester. Laying in bed with epidural in place. Denies any pain or discomfort at this time. Continues to haveleakage of fluid. Contractions have slowed to q5mins. Cat I tracing on monitor with no decels present. Continue routine management. \\ Cx:deferred FHP: Cat I tracing [place]:irregular A/P: 1. PROM 2. Urethral caruncle 3. [...] Date Confirm , est care December 13 025 1:58pm *NEW* NOB LMP 11/02, DONALD [...] March 10, 2025 1:50pm Supervision of normal Septembe r 2024 1:50pm Chief Complaint Admit Date Confirm , est care December 13, 2 025 1:58pm *NEW* NOB LMP 11/02, DONALD 08/09January 06, 2 025 12:35pm Rash January 31, 2025 4:0 8pm 14wk ob February 06, 2025 3: 58pm 18wk ob March 10, 2025 1:50pm vaginal bleeding March 12, 2025 3:05am Chief Complaint Admit Date *NEW* NOB LMP 11/02, DONALD 08/09January 06, 2 025 12:35pm Rash January 31, 2025 4:0 8pm 14wk ob February 06, 2025 3: 58pm 18wk ob March 10, 2025 1:50pm vaginal bleeding March 12, 2025 3:05am 22wk ob April 07, 2025 2 :26pm Reason for Visit Admit Date Amenorrhea January 06, 2025 12:3 5pm Former smoker, stopped smoking in distan t past January 06, 2025 12:35pm Infertility January 06, 2025 12:3 5pm January 06, 2025 12:3 5pm Supervision of normal December 12:35pm January 31, 2025 4:0 8pm Psoriasis January 31, 2025 4:0 8pm Amenorrhea February 06, 2025 3: 58pm Former smoker, stopped smoking in distan t past February 06, 2025 3:58pm Infertility February 06, 2025 3: 58pm February 06, 2025 3: 58pm Psoriasis February 06, 2025 3: 58pm Supervision of normal January 272024 3:58pm Amenorrhea March 10, 2025 1:50pm Former smoker, stopped smoking in distan t past March 10, 2025 1:50pm Infertility March 10, 2025 1:50pm March 10, 2025 1:50pm Psoriasis March 10, 2025 1:50pm Supervision of normal Sept[place] r 2024 1:50pm Amenorrhea April 07, 2025 2 :26pm Former smoker, stopped smoking in distan t past April 07, 2025 2:26pm Infertility April 07, 2025 2 :26pm April 07, 2025 2 :26pm Psoriasis April 07, 2025 2 :26pm Supervision of normal April 07, 2025 2:26pm Additional Source Comments Ordered Prescriptions (unrec ognized [...] section and content) DATE CREATED AUTHOR 10/11/2020 [facility] DATE CREATED AUTHOR AUTHOR'S ORGANIZ ATION 04/09/2025 [facility] DATE CREATED AUTHOR AUTHOR'S ORGANIZ ATION 04/18/2025 [facility] Care Teams (unrecognized sec tion and content) Team Status: Inactive Member Role Status Dates VINEET Damon Attending Provider Active Start: December 13, 2024 End: December 13, 2024 Team Status: Inactive Member Role/Relationship Status Dates VINEET Damon Attending Provider Active Start: December 13, 2024 End: December 13, 2024 Team Status: Inactive Member Role/Relationship Status Dates Marina Taylor CNM Attending Provider Active S tart: January 06, 2025 End: January 06, 2025 Team Status: Inactive Member Role/Relationship Status Dates Marina Taylor CNM Attending Provider Active S tart: January 06, 2025 End: January 06, 2025 Team Status: Inactive Member Role/Relationship Status Dates Dr. Keyona Marshall DO Attending Provider Activ e Start: January 16, 2025 End: January 16, 2025 Team Status: Inactive Member Role/Relationship Status Dates Jody Jacobsen NP, FEED MILL OPERATOR-C Attending Provider Active Start: January 31, 2025 End: January 31, 2025 Team Status: Inactive Member Role/Relationship Status Dates Dr. Dee Smith MD Attending Provider Active Start: February 06, 2025 End: February 06, 2025 Team Status: Inactive Member Role/Relationship Status Dates Marina Taylor CNM Attending Provider Active S tart: March 10, 2025 End: March 10, 2025 Team Status: Active Member Role/Relationship Status Dates No Primary Care Physician Primary Care Provider Active Team Status: Inactive Member Role/Relationship Status Dates Patria Dooley NP-C Attending Provider Active Start: December 13, 2024 End: December 13, 2024 Team Status: Inactive Member Role/Relationship Status Dates Marina Taylor CNM Attending Provider Active S tart: January 06, 2025 End: January 06, 2025 Team Status: Inactive Member Role/Relationship Status Dates Dr. Keyona Marshall DO Attending Provider Activ e Start: January 16, 2025 End: January 16, 2025 Team Status: Inactive Member Role/Relationship Status Dates Jody Jacobsen NP FEED MILL OPERATOR-C Attending Provider Active Start: January 31, 2025 End: January 31, 2025 Team Status: Inactive Member Role/Relationship Status Dates Dr. Dee Smith MD Attending Provider Active Start: February 06, 2025 End: February 06, 2025 Team Status: Inactive Member Role/Relationship Status Dates Marina Taylor CNM Attending Provider Active S tart: March 10, 2025 End: March 10, 2025 Team Status: Inactive Member Role/Relationship Status Dates Dr. Delphine Daily MD Emergency Provider Active S tart: March 12, 2025 End: March 12, 2025 No Primary Care Physician Primary Care Provider Active Start: March 12, 2025 End: March 12, 2025 Team Status: Active Member Role/Relationship Status Dates No Primary Care Physician Primary care physician Activ e Team Status: Inactive Member Role/Relationship Status Dates Marina Taylor CNM Attending physician Active Start: January 06, 2025 End: January 06, 2025 Team Status: Inactive Member Role/Relationship Status Dates Marina Taylor CNM Attending physician Active Start: January 06, 2025 End: January 06, 2025 Team Status: Inactive Member Role/Relationship Status Dates Dr. Keyona Marshall DO Attending physician Acti ve Start: January 16, 2025 End: January 16, 2025 Team Status: Inactive Member Role/Relationship Status Dates Jody Jacobsen NP, FEED MILL OPERATOR-C Attending physician Active Start: January 31, 2025 End: January 31, 2025 Team Status: Inactive Member Role/Relationship Status Dates Dr. Dee Smith MD Attending physician Active Start: February 06, 2025 End: February 06, 2025 Team Status: Inactive Member Role/Relationship Status Dates Marina Taylor CNM Attending physician Active Start: March 10, 2025 End: March 10, 2025 Team Status: Inactive Member Role/Relationship Status Dates Dr. Delphine Daiyl MD Attending physician Active Start: March 12, 2025 End: March 12, 2025 Dr. Delphine Daily [facility] Active Start: March 12, 2025 End: March 12, 2025 No Primary Care Physician Primary care physician Activ e Start: March 12, 2025 End: March 12, 2025 Team Status: Inactive Member Role/Relationship Status Dates Marina Taylor CNM Attending physician Active Start: April 07, 2025 End: April 07, 2025 No Primary Care Physician Primary care physician Activ e Start: April 07, 2025 End: April 07, 2025 No Primary Care Physician Referring Provider Active Start: April 07, 2025 End: April 07, 2025 Goals (unrecognized section and content) Type Care Experience Labor Preferences-CB /BF classes: []labor support person: []labor intervention preferences: []pain management options preferred: []cut cord/dad catch: []: []PP control planned: []discussed possible routes of delivery and associated risks: []special requests: [] Reason for Visit (unrecogniz ed section and content) Reason Comments Rash FOR RECORDS PERTAINING TO PATIENTS WHO ARE [...] BE BASED ON THE PRIMARY CLINICAL RECORDS. [facility]. provides no warranty or guarantee of the accuracy or completeness of information in this document.
[2025-05-05 18:01] LABS: Glucose Challenge Gest 1H 50g 103 mg/dL (70-140); HIV Nonreactive (Nonreactive); Syphilis Antibodies Nonreactive (Nonreactive)
== END | disposition home or self-care (01) ==
LOC: BWCLAB 15:44
PROVIDERS: Visit Provider Advanced Practice Midwife
DX: Z34.92 Encounter for supervision of normal pregnancy, unspecified, second trimester (principal); Z3A.22 22 weeks gestation of pregnancy; Z13.1 Encounter for screening for diabetes mellitus
CPT/HCPCS: 36415; 82950; 85025; 86703; 86780